=== PATIENT | male | born 1955 | race Caucasian/White ===

== ENCOUNTER 2022-11-23 09:04 | Outpatient (OUT) | payer MEDICARE, SELFPAY ==
[2022-11-23 09:33] LABS: Basophils Absolute Auto 0.1 10^3/uL (0.0-0.1); Basophils Percent Auto 1.2 % (0.2-2.0); Eosinophils Absolute Auto 0.3 10^3/uL (0.0-0.7); Hemoglobin 15.3 g/dL (14.0-18.0); Immature Granulocytes Abs Auto 0.02 10^3/uL (0.00-0.03); Immature Granulocytes Pct Auto 0.3 % (0.0-0.5); Lymphocytes Absolute Auto 2.2 10^3/uL (1.2-3.8); Lymphocytes Percent Auto 32.8 % (20.5-60.0); Mean Corpuscular Hemoglobin 30.6 pg (25.9-34.0); Mean Platelet Volume 10.4 fL (9.5-13.5); Monocytes Absolute Auto 0.5 10^3/uL (0.3-0.8); Monocytes Percent Auto 7.5 % (1.7-12.0); Neutrophils Absolute Auto 3.7 10^3/uL (1.4-6.5); Neutrophils Percent Auto 54.2 % (43.0-75.0); Platelet Count 243 10^3/uL (150-450); Red Cell Distribution Width 12.6 % (11.0-15.0); White Blood Count 6.8 10^3/uL (4.0-11.0)
[2022-11-23 10:06] LABS: Microalbumin Urine Random <1.3 mg/dL (<=30.0)
[2022-11-23 10:07] LABS: Alanine Aminotransferase 30 U/L (16-63); Anion Gap 8.5; BUN Creatinine Ratio 11.4; Calcium 8.8 mg/dL (8.5-10.1); Carbon Dioxide 30.8 mmol/L (21.0-32.0); Chloride 104 mmol/L (98-107); Chol HDL Ratio 2.2; Cholesterol 161 mg/dL (<=200); Estimated GFR (African America >60 (>=60); Estimated GFR (Non-African Ame >60 (>=60); Glucose 148 mg/dL (74-106); HDL Cholesterol 72 mg/dL (40-60); Potassium 4.3 mmol/L (3.5-5.1); Sodium 139 mmol/L (136-145); Triglycerides 54 mg/dL (<=150); VLDL CHOLESTEROL 10.8 mg/dL
[2022-11-23 10:16] LABS: Prostate Specific Antigen Scrn 0.43 ng/mL (<=4.00)
[2022-11-23 10:19] LABS: Estimated Average Glucose 134 mg/dL; Glycohemoglobin A1C 6.3 % (4.5-6.2)
== END 2022-11-23 09:05 | disposition home or self-care (01) ==
LOC: LAB 09:09
PROVIDERS: PCP Internal Medicine; Visit Provider Internal Medicine
DX: I10 Essential (primary) hypertension (principal); E11.65 Type 2 diabetes mellitus with hyperglycemia; Z79.899 Other long term (current) drug therapy; Z12.5 Encounter for screening for malignant neoplasm of prostate; E78.00 Pure hypercholesterolemia, unspecified
CPT/HCPCS: 36415; 80048; 80061; 82043; 83036; 84460; 85025; G0103

== ENCOUNTER 2023-05-30 09:45 | Outpatient (OUT) | payer MEDICARE, SELFPAY ==
[2023-05-30 12:09] LABS: Estimated Average Glucose 137 mg/dL; Glycohemoglobin A1C 6.4 % (4.5-6.2)
== END 2023-05-30 09:46 | disposition home or self-care (01) ==
PROVIDERS: PCP Internal Medicine; Visit Provider Internal Medicine
DX: E11.65 Type 2 diabetes mellitus with hyperglycemia (principal)
CPT/HCPCS: 83036

== ENCOUNTER 2023-12-07 06:52 | Outpatient (OUT) | payer MEDICARE, OTHER, SELFPAY ==
--- OUTSIDE RECORDS SUMMARY | 2023-12-07 06:58 | XMS_ITS | CCD ---
Author Organization [facility] Care Team Providers Care Kiln Setter Name Role Phone Marvin Cooley DO Primary Care Provider NAVJOT SHULTZ Referring Unavailable KRYSTA, MARVIN Bean Primary Care Unavailable KRYSTA, MARVIN Bean Primary Care Unavailable BALL, DR MIR Consulting Unavailable BALL, DR MIR Primary Care Unavailable BALL, DR MIR Admitting Unavailable BALL, DR IMR Attending Unavailable BALL, DR MIR Consulting Unavailable BALL, DR MIR Primary Care Unavailable BALL, DR MIR Admitting Unavailable BALL, DR MIR Attending Unavailable BALL, DR MIR Consulting Unavailable BALL, DR MIR Primary Care Unavailable BALL, DR MIR Admitting Unavailable BALL, DR MIR Attending Unavailable Ball, Marvin Unavailable Allergies Allergy Classification Reported Allergen(s) Allergy Type Date of Onset Reaction(s) Facility (6 sources) Penicillin; Translations: [PENICILLIN] Drug Allergy 06-28-2018 [facility] Medications Current Medications Medication Drug Class(es) Dates Sig (Normalized) Sig (Original) atorvastatin 10 mg oral tablet (4 sources) HMG-CoA Reductase Inhibitor Start: 07-14-2023 take 1 tablet by mouth once daily in the evening Atorvastatin Active 0 .ROUTE .COMPLEX July 14, 2023 12:55pm TAKE 1 TABLET BY MOUTH EVERY DAY IN THE EVENING Start: 07-14-2023 End: 07-14-2023 take 10 mg by mouth once daily in the evening Atorvastatin Discontinued 10 MG PO Every evening July 14, 2023 12:00am July 14, 2023 12:55pm take 1 tablet by jasper th once daily in the evening Atorvastatin Calcium 10 MG TAKE 1 TABLET BY MOUTH EVERY EVENING Active Contour Test - (1 source) Start: 12-08-2022 Contour Test - Use to test home BS qd In Vitro qd for 30 days Nov, Active losartan potassium 50 mg oral tablet (2 sources) Angiotensin 2 Receptor Guy Start: 11-27-2023 take 50 mg by mouth once daily Losartan Active 50 MG PO Daily November 27, 2023 12:00am Start: 05-26-2023 take 1 tablet by jasper th every twenty-four hours Losartan Potassium 25 MG 1 tablet Orally Once a day for 30 days May, Active metFORMIN hydrochloride 500 mg oral tablet (4 sources) Biguanide Start: 07-14-2023 take 1 tablet by mouth once daily at breakfast Metformin Active 0 .ROUTE .COMPLEX July 14, 2023 12:55pm TAKE 1 TABLET BY MOUTH EVERY DAY WITH BREAKFAST Start: 07-14-2023 End: 07-14-2023 take 500 mg by mouth once daily Metformin Discontinued 500 MG PO Daily July 14, 2023 12:00am July 14, 2023 12:55pm take 1 tablet by jasper th every twenty-four hours metFORMIN HCl 500 MG 1 tablet Orally Once a day Active Completed/Discontinued Medications Medication Drug Class(es) Dates Sig (Normalized) Sig (Original) enteric contrast (will be provided with radiology test) (6 sources) Start: 07-26-2021 enteric contrast (will be provided with radiology test) Indications: Malignant neoplasm of sigmoid colon (HCC) For CT CHESTABD/PEL W IVCON Routine order Administer, As Directed One Time Only, via Oral, Rectal, both Oral and Rectal, Enteric Tube, Stoma or Indwelling Catheter, Enteric Contrast as designated per enteric contrast guidelines 1 Each 0 07/26/2021 Active Start: 10-17-[address] (will be provided with radiology test) Indications: Malignant neoplasm of sigmoid colon (HCC) For CT CHESTABD/PEL W IVCON Routine order Administer, As Directed One Time Only, via Oral, Rectal, both Oral and Rectal, Enteric Tube, Stoma or Indwelling Catheter, Enteric Contrast as designated per enteric contrast guidelines 1 Each 0 10/17/2019 Active Comment on above: For CT CHESTABD/PEL W IVCON Routine order Administer, As Directed One Time Only, via Oral, Rectal, both Oral and Rectal, Enteric Tube, Stoma or Indwelling Catheter, Enteric Contrast as designated per enteric contrast guidelines iv contrast (will be provided with radiology test) (6 sources) Start: 07-26-2021 iv contrast (will be provided with radiology test) Indications: Malignant neoplasm of sigmoid colon (HCC) CT Chest ABD/PEL-Inject, intravenously, once for 1 dose.No IV access, insert saline lock prior to the beginning of sedation, infusion, injection of imaging exam. Discontinue saline lock post exam. If Pt. has a central line or IVAD, may access for administration according to line specific nursing protocol. Once exam is complete flush line and de-access according to line specific nursing protocol in the CT contrast administration guidelines link. 1 Each 0 07/26/2021 Active Start: 10-17-2019 iv contrast (w ill be provided with radiology test) Indications: Malignant neoplasm of sigmoid colon (HCC) CT Chest ABD/PEL-Inject, intravenously, once for 1 dose.No IV access, insert saline lock prior to the beginning of sedation, infusion, injection of imaging exam. Discontinue saline lock post exam. If Pt. has a central line or IVAD, may access for administration according to line specific nursing protocol. Once exam is complete flush line and de-access according to line specific nursing protocol in the CT contrast administration guidelines link. 1 Each 0 10/17/2019 Active Comment on above: CT Chest ABD/PEL-Inj ect, intravenously, once for 1 dose.No IV access, insert saline lock prior to the beginning of sedation, infusion, injection of imaging exam. Discontinue saline lock post exam. If Pt. has a central line or IVAD, may access for administration according to line specific nursing protocol. Once exam is complete flush line and de-access according to line specific nursing protocol in the CT contrast administration guidelines link. Problems Active Problems Problem Classification Problem Date Documented Da te Episodic/Chronic Cancer of colon (11 sources) Malignant tumor of sigmoid colon; Translations: [Malignant neoplasm of sigmoid colon] Onset: 06-15-2018 07-12-2018 Chronic Cancer of colon (5 sources) History of malignant neoplasm of colon; Translations: [Personal history of other malignant neoplasm of large intestine] Episodic Cancer of rectum and anus (1 source) Malignant tumor of rectosigmoid junction; Translations: [Malignant neoplasm of rectosigmoid junction] Chronic Diabetes mellitus with complications (6 sources) Type 2 diabetes mellitus; Translations: [Type 2 diabetes mellitus with hyperglycemia] Chronic Diabetes mellitus without complication (6 sources) Type 2 diabetes mellitus without complications; Translations: [Type 2 diabetes mellitus without complication] Onset: 03-16-2022 Chronic Disorders of lipid metabolism (8 sources) Pure hypercholesterolemi a, unspecified; Translations: [Pure hypercholesterolemi a] Onset: 03-19-2022 Chronic Essential hypertension (4 sources) Essential hypertension; Translations: [Essential (primary) hypertension] Chronic Genitourinary symptoms and ill-defined conditions (1 source) Nocturia Episodic Hyperplasia of prostate (8 sources) Benign prostatic hyperplasia; Translations: [Benign prostatic hyperplasia without lower urinary tract symptoms] Chronic Other and unspecified benign neoplasm (2 sources) History of polyp of colon; Translations: [Personal history of colonic polyps] Episodic Other nutritional; endocrine; and metabolic disorders (4 sources) Obese class I; Translations: [Obesity, unspecified] Onset: 07-10-2018 07-12-2018 Chronic Other nutritional; endocrine; and metabolic disorders (3 sources) Body mass index 30+ - obesity; Translations: [Obesity, unspecified] Chronic Other nutritional; endocrine; and metabolic disorders (1 source) Obesity, unspecified Chronic Other nutritional; endocrine; and metabolic disorders (1 source) Simple obesity ; Translations: [Other obesity due to excess calories] Onset: 04-27-2018 Chronic Other nutritional; endocrine; and metabolic disorders (1 source) Other obesity due to excess calories Chronic Other nutritional; endocrine; and metabolic disorders (1 source) Body mass index (BMI) 31.0-31.9, adult Chronic Other nutritional; endocrine; and metabolic disorders (3 sources) Overweight; Translations: [Overweight] Episodic Other screening for suspected conditions (not mental disorders or infectious disease) (2 sources) Encounter for screening for malignant neoplasm of prostate; Translations: [Screening for malignant neoplasms of prostate] Onset: 12-16-2021 11-27-2023 Episodic Unclassified (3 sources) CONTACT W/AND (SUSP) EXPOS COVID-19; Translations: [CONTACT W/AND (SUSP) EXPOS COVID-19] Onset: 03-30-2021 Past or Other Problems Problem Classification Problem Date Documented Da te Episodic/Chronic Abdominal hernia (4 sources) Incisional hernia; Translations: [Incisional hernia without obstruction or gangrene] Onset: 05-02-2019 05-02-2019 Episodic Other circulatory disease (1 source) Elevated blood-pressure reading without diagnosis of hypertension; Translations: [Elevated blood-pressure reading, without diagnosis of hypertension] Onset: 04-27-2018 Episodic Unclassified (1 source) CONTACT W/AND (SUSP) EXPOS COVID-19; Translations: [CONTACT W/AND (SUSP) EXPOS COVID-19] Onset: 03-25-2021 Results Test Name Value Interpretation Reference Range Facility DIRECT LDLon 03-16-2022 Cholesterol in LDL [Mass/Vol] 107 mg/dL Normal [facility] Comment on above: Performed By: #### A , DLDL #### [facility] [address] [address] [address] Ranjith Logan DLDL NORMAL SEE BELOW Normal [facility] Comment on above: Result Comment: <100 mg/dl OPTIMAL 100 - 129 mg/dl NEAR OR ABOVE OPTIMAL 130 - 159 mg/dl BORDERLINE HIGH 160 - 189 mg/dl HIGH >190 mg/dl VERY HIGH Performed By: #### A WILLOW EARLYL #### [facility] [address] [place] [address] Dr. Ranjith Logan GLYCOHEMOGLOBIN A1Con 2021 ADA RECOMMENDATION SEE BELOW Normal [facility] Comment on above: Result Comment: ADA RECOMMENDED LIMIT 4.0 - 6.0 ADA THERAPEUTIC TARGET < 7.0 ACTION SUGGESTED > 7.0 Performed By: #### A 1C #### [facility] [address] [place] [address] Dr. Ranjith Logan Glucose [Mass/Vol] 146 mg/dL Normal [facility] Comment on above: Performed By: #### A 1C #### [facility] [address] [place] [address] Dr. Ranjith Logan HbA1c (Bld) [Mass fraction] 6.7 % Critically high 4.5-6.[address] [facility] Comment on above: Performed By: #### A 1C #### [facility] [address] [place] [address] Dr. Ranjith Logan SGPTon 03-16-2022 ALT [Catalytic activity/Vol] 51 U/L Normal 16-[address] [facility] Comment on above: Performed By: #### A , DLDL #### [facility] [address] [place] [address] Dr. Ranjith Logan CEA SerPl-mCncon 02-16-2022 Carcinoembryonic Ag [Mass/Vol] 3.1 ng/mL High <=2.9 [facility] Comment on above: Order Comment: Speci men Type: BLOOD SPECIMEN Ordering Facility: [facility] [place] Address: [address] [place], [place] [id number] Result Comment: Carc inoembryonic antigen test is used as an aid in monitoring response to treatment or recurrence in patients with established colorectal, breast, lung, prostatic, pancreatic, and ovarian carcinomas. Clinical correlation is required. The Carcinoembryonic antigen test was performed using the [employer] [place] [employer] DXI paramagnetic particle chemiluminescent immunoassay method. Results obtained with different assay methods or kits cannot be used interchangeably. Performed By: #### 2 [id number] #### [facility] CLIA [id number] [place] CBC AUTO DIFFon 12-15-2021 BASO # 0.1 103/ul Normal 0.0-0.[address] [facility] Comment on above: Performed By: #### C BC #### [facility] [address] [place] [address] Dr. Ranjith Logan Basophils/100 WBC (Bld) 1.6 % Normal 0.2-2.[address] [facility] Comment on above: Performed By: #### C BC #### [facility] [address] [place] [address] Dr. Ranjith Logan EO # 0.4 103/ul Normal 0.0-0.[address] [facility] Comment on above: Performed By: #### C BC #### [facility] [address] [place] [address] Dr. Ranjith Logan Eosinophils/100 WBC (Bld) 5.3 % Normal 0.9-7.[address] [facility] Comment on above: Performed By: #### C BC #### [facility] [address] [place] [address] Dr. Ranjith Logan Erythrocyte distribution width (RBC) [Ratio] 13.1 % Normal 11.0-15.[address] [facility] Comment on above: Performed By: #### C BC #### [facility] [address] [place] [address] Dr. Ranjith Logan Hematocrit (Bld) [Volume fraction] 43.0 % Normal 42.0-54.[address] [facility] Comment on above: Performed By: #### C BC #### [facility] [address] [place] [address] Dr. Ranjith Logan Hemoglobin (Bld) [Mass/Vol] 14.5 g/dL Normal 14.0-18.[address] [facility] Comment on above: Performed By: #### C BC #### [facility] [address] [place] [address] Dr. Ranjith Logan IG # 0.02 10e3/ul Normal 0.00-0.[address] [facility] Comment on above: Performed By: #### C BC #### [facility] [address] [place] [address] Dr. Ranjith Logan IG % 0.3 % Normal 0.0-0.[address] [facility] Comment on above: Performed By: #### C BC #### [facility] [address] [place] [address] Dr. Ranjith Logan LYMPH # 2.3 103/ul Normal 1.2-3.[address] [facility] Comment on above: Performed By: #### C BC #### [facility] [address] [place] [address] Dr. Ranjith Logan Lymphocytes/100 WBC (Bld) 33.3 % Normal 20.5-60.[address] [facility] Comment on above: Performed By: #### C BC #### [facility] [address] [place] [address] Dr. Ranjith Logan MANUAL DIFF REQ NO Normal [facility] Comment on above: Performed By: #### C BC #### [facility] [address] [place] [address] Dr. Ranjith Logan MCH (RBC) [Entitic mass] 30.5 pg Normal 25.9-34.[address] [facility] Comment on above: Performed By: #### C BC #### [facility] [address] [place] [address] Dr. Ranjith Logan MCHC (RBC) [Mass/Vol] 33.7 g/dL Normal 29.9-35.[address] [facility] Comment on above: Performed By: #### C BC #### [facility] [address] [address] [address] Ranjith Logan MCV (RBC) [Entitic vol] 90.3 fL Normal 80.0-94.[address] [facility] Comment on above: Performed By: #### C BC #### [facility] [address] [address] [address] Ranjith Logan MONO # 0.6 103/ul Normal 0.3-0.[address] [facility] Comment on above: Performed By: #### C BC #### [facility] [address] [address] [address] Ranjith Logan Monocytes/100 WBC (Bld) 8.6 % Normal 1.7-12.[address] [facility] Comment on above: Performed By: #### C BC #### [facility] [address] [place] [address] Dr. Ranjith Logan NEUT # 3.4 103/ul Normal 1.4-6.[address] [facility] Comment on above: Performed By: #### C BC #### [facility] [address] [place] [address] Dr. Ranjith Logan Neutrophils/100 WBC (Bld) 50.9 % Normal 43.0-75.[address] [facility] Comment on above: Performed By: #### C BC #### [facility] [address] [place] [address] Dr. Ranjith Logan Platelet mean volume (Bld) [Entitic vol] 10.0 fL Normal 9.5-13.[address] [facility] Comment on above: Performed By: #### C BC #### [facility] [address] [address] [address] Ranjith Logan PLT 245 103/ul Normal 150-[address] [facility] Comment on above: Performed By: #### C BC #### [facility] [address] [address] [address] Ranjith Logan RBC 4.76 106/ul Normal 4.70-6.[address] [facility] Comment on above: Performed By: #### C BC #### [facility] [address] [address] [address] Ranjith Logan WBC 6.8 103/ul Normal 4.0-11.[address] [facility] Comment on above: Performed By: #### C BC #### [facility] [address] [address] [address] Ranjith Logan GLYCOHEMOGLOBIN A1Con 2021 ADA RECOMMENDATION SEE BELOW Normal [facility] Comment on above: Result Comment: ADA RECOMMENDED LIMIT 4.0 - 6.0 ADA THERAPEUTIC TARGET < 7.0 ACTION SUGGESTED > 7.0 Performed By: #### A 1C #### [facility] [address] [address] [address] Ranjith Logan Glucose [Mass/Vol] 140 mg/dL Normal [facility] Comment on above: Performed By: #### A 1C #### [facility] [address] [place] [address] Dr. Ranjith Logan HbA1c (Bld) [Mass fraction] 6.5 % Critically high 4.5-6.[address] [facility] Comment on above: Performed By: #### A 1C #### [facility] [address] [place] [address] Dr. Ranjith Logan LIPID PROFILEon 12-15-2021 CHOL-HDL RATIO NORM SEE BELOW Normal [facility] Comment on above: Result Comment: 3.3 - 4.4 LOW RISK 4.4 - 7.1 AVERAGE RISK 7.1 - 11.0 MODERATE RISK >11.0 HIGH RISK Performed By: #### L IPID, CMP #### [facility] [address] [place] [address] Dr. Ranjith Logan Cholesterol [Mass/Vol] 214 mg/dL Critically high <=[address] [facility] Comment on above: Performed By: #### L IPID, CMP #### [facility] [address] [place] [address] Dr. Ranjith Logan Cholesterol in HDL [Mass/Vol] 60 mg/dL Normal 40-[address] [facility] Comment on above: Performed By: #### L IPID, CMP #### [facility] [address] [address] [address] Ranjith Logan Cholesterol in LDL [Mass/Vol] 133.6 mg/dL Normal [facility] Comment on above: Performed By: #### L IPID, CMP #### [facility] [address] [place] [address] Dr. Ranjith Logan Cholesterol.total/Ch olesterol in HDL [Mass ratio] 3.6 {ratio} Normal [facility] Comment on above: Performed By: #### L IPID, CMP #### [facility] [address] [place] [address] Dr. Ranjith Logan HDL NORMAL > or = 60 mg/dl - LO W CARDIOVASCULAR RISK <40 mg/dl - HIGH CARDIOVASCULAR RISK Normal [facility] Comment on above: Performed By: #### L IPID, CMP #### [facility] [address] [place] [address] Dr. Ranjith Logan LDL CALC NORMAL SEE BELOW Normal [facility] Comment on above: Result Comment: <100 mg/dl OPTIMAL 100 - 129 mg/dl NEAR OR ABOVE OPTIMAL 130 - 159 mg/dl BORDERLINE HIGH 160 - 189 mg/dl HIGH >190 mg/dl VERY HIGH Performed By: #### L IPID, CMP #### [facility] [address] [place] [address] Dr. Ranjith Logan Triglyceride [Mass/Vol] 102 mg/dL Normal <=[address] [facility] Comment on above: Performed By: #### L IPID, CMP #### [facility] [address] [place] [address] Dr. Ranjith Logan VLDL CALC 20.4 mg/dL Normal [facility] Comment on above: Performed By: #### L IPID, CMP #### [facility] [address] [address] [address] Ranjith Logan PROF 14(COMP METB)on 022 Albumin [Mass/Vol] 3.6 g/dL Normal 3.4-5.0 [facility] Comment on above: Performed By: #### L IPID, CMP #### [facility] [address] [place] [address] Dr. Ranjith Logan Albumin/Globulin [Mass ratio] 1.0 {ratio} Normal [facility] Comment on above: Performed By: #### L IPID, CMP #### [facility] [address] [place] [address] Dr. Ranjith Logan ALP [Catalytic activity/Vol] 68 U/L Normal 46-[address] [facility] Comment on above: Performed By: #### L IPID, CMP #### [facility] [address] [address] [address] Ranjith Logan ALT [Catalytic activity/Vol] 39 U/L Normal 16-[address] [facility] Comment on above: Performed By: #### L IPID, CMP #### [facility] [address] [place] [address] Dr. Ranjith Logan Anion gap [Moles/Vol] 9.8 mmol/L Normal [facility] Comment on above: Performed By: #### L IPID, CMP #### [facility] [address] [place] [address] Dr. Ranjith Logan AST [Catalytic activity/Vol] 20 U/L Normal 15-[address] [facility] Comment on above: Performed By: #### L IPID, CMP #### [facility] [address] [place] [address] Dr. Ranjith Logan Bilirubin [Mass/Vol] 0.7 mg/dL Normal 0.2-1.[address] [facility] Comment on above: Performed By: #### L IPID, CMP #### [facility] [address] [place] [address] Dr. Ranjith Logan Calcium [Mass/Vol] 8.8 mg/dL Normal 8.5-10.1 [facility] Comment on above: Performed By: #### L IPID, CMP #### [facility] [address] [place] [address] Dr. Ranjith Logan Chloride [Moles/Vol] 103 mmol/L Normal 98-[address] [facility] Comment on above: Performed By: #### L IPID, CMP #### [facility] [address] [place] [address] Dr. Ranjith Logan CO2 [Moles/Vol] 31.5 mmol/L Normal 21.0-32.0 [facility] Comment on above: Performed By: #### L IPID, CMP #### [facility] [address] [address] [address] Ranjith Logan Creatinine [Mass/Vol] 0.94 mg/dL Normal 0.70-1.[address] [facility] Comment on above: Performed By: #### L IPID, CMP #### [facility] [address] [address] [address] Ranjith Logan EGFR-AF LUXEMBOURGER >60 Normal >=60 [facility] Comment on above: Performed By: #### L IPID, CMP #### [facility] [address] [address] [address] Ranjith Logan EGFR-NON AF LUXEMBOURGER >60 Normal >=[address] [facility] Comment on above: Performed By: #### L IPID, CMP #### [facility] [address] [address] [address] Ranjith Logan Globulin (S) [Mass/Vol] 3.7 g/dL Normal [facility] Comment on above: Performed By: #### L IPID, CMP #### [facility] [address] [address] [address] Ranjith Logan Glucose [Mass/Vol] 147 mg/dL Critically high 74-[address] [facility] Comment on above: Performed By: #### L IPID, CMP #### [facility] [address] [address] [address] Ranjith Logan Potassium [Moles/Vol] 4.3 mmol/L Normal 3.5-5.[address] [facility] Comment on above: Performed By: #### L IPID, CMP #### [facility] [address] [address] [address] Ranjith Logan Protein [Mass/Vol] 7.3 g/dL Normal 6.4-8.2 [facility] Comment on above: Performed By: #### L IPID, CMP #### [facility] [address] [address] [address] Ranjith Logan Sodium [Moles/Vol] 140 mmol/L Normal 136-145 [facility] Comment on above: Performed By: #### L IPID, CMP #### [facility] [address] [address] [address] Ranjith Logan Urea nitrogen [Mass/Vol] 8.0 mg/dL Normal 7.0-18.[address] [facility] Comment on above: Performed By: #### L IPID, CMP #### [facility] [address] [address] [address] Ranjith Logan Urea nitrogen/Creatinine [Mass ratio] 8.5 mg/mg Normal [facility] Comment on above: Performed By: #### L IPID, CMP #### [facility] [address] [address] [address] Ranjith Logan CEA SerPl-mCncon 07-28-2021 Carcinoembryonic Ag [Mass/Vol] 3.5 ng/mL High <=2.9 [facility] Comment on above: Order Comment: Speci men Type: BLOOD SPECIMEN Ordering Facility: [facility] [place] Address: [address] [place] [address] Result Comment: Carc inoembryonic antigen test is used as an aid in monitoring response to treatment or recurrence in patients with established colorectal, breast, lung, prostatic, pancreatic, and ovarian carcinomas. Clinical correlation is required. The Narcisa [place] DXI 600/800 is used. Results obtained with different assay, methods or kits cannot be used interchangeably Performed By: #### 2 [id number] #### [facility] CLIA [id number] [address] [place], [place] [address]K [address] [facility] CNPChristen 07-23-2021 CNPN Telephone ([facility]) -------- HECTOR MURRY ([id number]) 1955 M Date Time Provider Department 07/23/[address] [facility] During your visit today, we recorded the following information about you: Janae Lezama RN 07/23/2021 9:45 AM Signed Call placed to patient re: cancer surveillance. No answer, left message and office contact number should wish to discuss Kaylene Romero ADM 07/23/2021 3:37 PM Signed Patient returned nurse call. Request call back to [phone] Janae Lezama RN 07/23/2021 3:47 PM Signed Call returned to patient. Discussed surveillance x 5 yrs. Pt appreciative of the call. Will obtain lab work. Will forward CT scans to Dr Shultz for approval. 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 Discontinue saline lock post exam. If Pt. has a central line or IVAD, may access for administration according to line specific nursing protocol. Once exam is complete flush line and de-access according to line specific nursing protocol in the CT contrast administration guidelines link.Disp: 1 EachRfl: 0 enteric contrast (will be provided with radiology test)For CT CHESTABD/PEL W IVCON Routine order Administer, As Directed One Time Only, via Oral, Rectal, both Oral and Rectal, Enteric Tube, Stoma or Indwelling Catheter, Enteric Contrast as designated per enteric contrast guidelinesDisp: 1 EachRfl: 0 CREATININE BLD [SQCRET] Order #: [id number] FUTURE Prescriptions as of 07/26/2021 - iv contrast (will be provided with radiology test) CT Chest ABD/PEL-Inject, intravenously, once for 1 dose.No IV access, insert saline lock prior to the beginning of sedation, infusion, injection of imaging exam. Discontinue saline lock post exam. If Pt. has a central line or IVAD, may access for administration according to line specific nursing protocol. Once exam is complete flush line and de-access according to line specific nursing protocol in the CT contrast administration guidelines link. - enteric contrast (will be provided with radiology test) For CT CHESTABD/PEL W IVCON Routine order Administer, As Directed One Time Only, via Oral, Rectal, both Oral and Rectal, Enteric Tube, Stoma or Indwelling Catheter, Enteric Contrast as designated per enteric contrast guidelines - iv contrast (will be provided with radiology test) CT Chest ABD/PEL-Inject, intravenously, once for 1 dose.No IV access, insert saline lock prior to the beginning of sedation, infusion, injection of imaging exam. Discontinue saline lock post exam. If Pt. has a central line or IVAD, may access for administration according to line specific nursing protocol. Once exam is complete flush line and de-access according to line specific nursing protocol in the CT contrast administration guidelines link. - enteric contrast (will be provided with radiology test) For CT CHESTABD/PEL W IVCON Routine order Administer, As Directed One Time Only, via Oral, Rectal, both Oral and Rectal, Enteric Tube, Stoma or Indwelling Catheter, Enteric Contrast as designated per enteric contrast guidelines Problem List As Of Date 07/23/2021 Noted Resolved Malignant neoplasm of sigmoid colon (HCC) [C18.*07/04/2018 Obesity, Class I, BMI 30-34.9 [E66.9] 07/10/2018 Incisional hernia, without obstruction or gangr*05/02/2019 Prescriptions ordered this encounter Disp Refills Start End IV CONTRAST (RADIOLOGY PROCEDURE) 1 Ea* 0 07/26/2021 Class: In Office Sig: CT Chest ABD/PEL-Inject, intravenously, once for 1 dose.No IV access, insert saline lock prior to the beginning of sedation, infusion, injection of imaging exam. Discontinue saline lock post exam. If Pt. has a central line or IVAD, may access for administration according to line specific nursing protocol. Once exam is complete flush line and de-access according to line specific nursing protocol in the CT contrast administration guidelines link. ENTERIC CONTRAST (RADIOLOGY PROCEDUR* 1 Ea* 0 (more content not included)... Normal [facility]on SARS-CoV-2 (COVID-19) RNA PANFILO+probe Ql (Unsp spec) Not detected Normal NOT DETECTED [facility] Comment on above: Result Comment: This test is not yet approved or cleared by the [place] FDA. When there are no FDA-approved or cleared tests available, and other criteria are met, FDA can make tests available under an emergency access mechanism called an Emergency Use Authorization (EUA). The EUA for this test is supported by the [place] of Health and Human Service's (HHS's) declaration that circumstances exist to justify the emergency use of in vitro diagnostics for the detection and/or diagnosis of the virus that causes COVID-19. This EUA will remain in effect (meaning this test can be used) for the duration of the COVID-19 declaration justifying emergency of IVDs, unless it is terminated or revoked by FDA (after which the test may no longer be used). When diagnostic testing is negative, the possibility of a false negative should be considered in the context of a patient's recent exposures and the presence of clinical signs and symptoms consistent with SARS-CoV-2. Performed By: #### C [facility] #### [facility] [address] [place] [address] Dr. Ranjith [place] POSTPROC EVALon 020 ANES POSTPROC EVAL HNO ID: [id number] Author: Keon Fairchild Service: ? Author Type: Anesthesiologist Type: Anesthesia Postprocedure Evaluation Filed: 06/25/2019 12:38 PM Note Text: POST ANESTHESIA EVALUATION NOTE : 1955 Procedure Summary Date: 06/25/19 Room / Location: OR11 / [facility] OR Anesthesia Start: 947 Anesthesia Stop: 1124 Procedure: LAPAROSCOPIC HERNIORRHAPHY INCISIONAL ABDOMEN REDUCIBLE (N/A Abdomen) Diagnosis: Incisional hernia (Incisional hernia [K43.2]) Surgeon: Kassidy Ibarra Responsible Provider: Keon Fairchild Anesthesia Type: general ASA Status: 2 Anesthesia Type: general Last vitals Vitals Value Taken Time BP 122/71 06/25/2019 12:30 PM Temp 36.7 ?C (98.1 ?F) 06/25/2019 11:22 AM Pulse 61 06/25/2019 12:11 PM HR SpO2 67 06/25/2019 12:12 PM Resp 11 06/25/2019 12:11 PM SpO2 98 % 06/25/2019 12:12 PM Vitals shown include unvalidated device data. Post Anesthesia Patient Status Patient Evaluation: PACU. PACU/ICU Patient Condition: stable. Anticipated Disposition: phase 2 then home. Neurological Status: aware and responsive. Pulmonary Status: breathing comfortably on room air . Airway Control: returned to baseline unsupported. Cardiovascular Status: stable. Pain Management: clinically adequate. Postoperative Hydration: acceptable. Intraoperative Events: no significant anesthesia events Anesthetic Observations: no significant anesthetic observations Recommendation: continue current plan of care and further care per PACU/ICU/floor team. SIGNATURE: Keon Fairchild MD PATIENT NAME: Hector Murry DATE: June 25, 2019 TIME: 12:38 PM CSN: [id number] [facility] ANES PRE-OPon 06-25-2019 ANES PRE-OP HNO ID: [id number] Author: Keon Fairchild Service: ? Author Type: Anesthesiologist Type: Anesthesia Preprocedure Evaluation Filed: 06/25/2019 9:26 AM Note Text: ANESTHESIOLOGY DAY OF SURGERY NOTE : 1955 Procedure(s) (LRB): LAPAROSCOPIC HERNIORRHAPHY INCISIONAL ABDOMEN REDUCIBLE (N/A) Surgeon(s): Kassidy Ibarra Estimated body mass index is 30.61 kg/m? as calculated from the following: Height as of 06/14/19: 185.4 cm (6' 1 ). Weight as of 06/14/19: 105.2 kg (232 lb). Most recent hematocrit and potassium results: Hematocrit 36.8 07/12/2018 Potassium 4.0 07/12/2018 Relevant Problems No relevant active problems I - PHYSICAL EVALUATION AIRWAY Patient intubated: No. Tracheostomy tube not present Mallampati: II. TM distance: >3 FB. Neck ROM: full ROM without neurological symptoms. Mouth opening: adequate. Short neck: no. Thick neck: no Additional comments: Sommers present. DENTAL Dental findings: teeth intact. Additional exam findings: yes. CARDIOVASCULAR Normal cardiovascular observations. Rhythm: regular Rate: normal PULMONARY Normal pulmonary observations. Breath sounds clear to auscultation. II - ANESTHESIA PLAN ASA Score: 2 Anesthetic Plan: general Airway type: ETT NPO Status: adequate Monitoring plan: Standard ASA. Postoperative analgesic plan: multimodal analgesia. Anesthetic Risks, Benefits, Alternatives, Personnel Discussed. Consent obtained from: patient. Patient / Surrogate agrees to blood products: blood products not planned Significant changes in the patient condition since the History and Physical, not otherwise documented in primary service progress note: no. Potential Anesthesia issues that may suggest increased risk of complications or contractions to planned procedure: none. Vitals Value Taken Time BP 190/96 06/25/2019 9:10 AM Pulse 67 06/25/2019 9:10 AM Resp 16 06/25/2019 9:10 AM Temp 36 ?C (96.8 ?F) 06/25/2019 9:10 AM SpO2 97 % 06/25/2019 9:10 AM Facility-Administered Medications as of 06/25/2019 Medication Dose Route Frequency - lidocaine 10 mg/mL (1 %) 1-2 mg injection (XYLOCAINE) 0.1-0.2 mL INTRADERMAL PRN - lactated ringers infusion 5-30 mL/hr INTRAVENOUS CONTINUOUS - heparin 5,000 Units injection 5,000 Units SUBCUTANEOUS Pre-Op Once - clindamycin iv piggyback 900 mg in D5W 50 mL (CLEOCIN) 900 mg INTRAVENOUS Pre-Op Once - [COMPLETED] acetaminophen 1,000 mg tab(s) (TYLENOL) 1,000 mg ORAL Pre-Op Once - [COMPLETED] promethazine 12.5 mg tab(s) (PHENERGAN) 12.5 mg ORAL Pre-Op Once - lactated ringers infusion 30 mL/hr INTRAVENOUS CONTINUOUS No current outpatient medications on file as of 06/25/2019. I have interviewed and examined the patient. I have reviewed the medical record and/or the pre-anesthesia evaluation, pertinent labs, and test results. This contains updated information obtained within 48 hours of Surgery/Procedure. SIGNATURE: Keon Fairchild MD PATIENT NAME: Hector Murry DATE: June 25, 2019 TIME: 9:25 AM CSN: [id number] [facility] HISTORY PHYSICALon 0 HISTORY PHYSICAL HNO ID: [id number] Author: Sanam Ace Service: General Surgery Author Type: Resident Type: HANDP Filed: 06/25/2019 9:40 AM Note Text: UPDATED HISTORY AND PHYSICAL EXAMINATION SERVICE DATE: 06/25/2019 SERVICE TIME: 9:39 AM PHYSICAL EXAM MUST BE COMPLETED ON ADMISSION The History and Physical (completed in the past 30 days) has been reviewed and the patient has been examined. The contents accurately reflect the patient's condition with the following additions or revisions since the HANDP was completed. Examination indicates no changes. This HANDP can be found in the Electronic Medical Record dated 06/14/2019. SIGNATURE: Sanam Ace MD PATIENT NAME: Hector Murry DATE: June 25, 2019 TIME: 9:39 AM PAGER: [phone] [facility] OPERATIVE NOon 06-25-2019 OPERATIVE NO HNO ID: [id number] Author: Kassidy Ibarra Service: General Surgery Author Type: Physician Type: Operative Report Filed: 06/26/2019 8:46 AM Note Text: [facility] - Operative Report HECTOR MURRY : 1955 AGE: 64. SEX: M PATIENT TYPE: A [facility] LOCATION: [facility] ATTENDING PHYSICIAN: Kassidy Ibarra M.D. CSN NUMBER: [id number] DATE OF SURGERY/PROCEDURE: 06/25/2019 INCISION/PROCEDURE START TIME: 1015 hours. INCISION CLOSE/PROCEDURE END TIME: 1113 hours. PREOPERATIVE DIAGNOSIS: Incisional hernia. POSTOPERATIVE DIAGNOSIS: Incisional hernia plus omental implant. SURGEON: Kassidy Ibarra M.D. LOAN OFFICER ASSISTANT: Dr. Sanam Ace SURGERY/PROCEDURE: Laparoscopic repair of incisional hernia with mesh and omental implant biopsy. ANESTHESIA: General. ESTIMATED BLOOD LOSS: Minimal. COMPLICATIONS: None immediate. DISPOSITION: To Recovery in stable condition. SIGNIFICANT FINDING: Omental implant was sent to Pathology as frozen, came as fat necrosis. Incisional hernia covered with mesh implant. Parietene DS mesh that measured 20 cm in length x 15 cm in width. DESCRIPTION OF PROCEDURE: Patient was taken to operating room, placed on the anesthesia table in supine position. After induction of anesthesia, the area of the abdomen was prepped and draped in normal sterile fashion. After appropriate time- out, a small incision was made in the left upper quadrant at the Moran point. The abdomen was entered using routine optical entry method, insufflated to 15 mmHg. Initial visualization revealed an incisional hernia in the midline around the umbilicus, slightly above the umbilicus, slightly below the umbilicus. The hernia measured 8 cm in length by about 4 cm in width. The hernia was superficial and was not deep. There were no adhesions to the hernia sac. Exploration of the abdominal cavity within the limitation of surveillance laparoscopy revealed an omental implant in the left upper quadrant. A 5 mm port was then placed in the left lower quadrant. The optical entry site was upgraded to a 12 mm port and another 5 mm port was inserted in the right upper quadrant. All ports were inserted under direct visualization. The omental implant was then excised using the cautery and sent off to frozen section. The frozen section came back as benign fat necrosis with no evidence of cancer. With that, we proceeded to repair the incisional hernia. A 20 cm in length x 15 cm in width Parietene DS mesh was inserted in the abdominal cavity, secured to the abdominal wall using transfascial sutures with a combination of 2-0 PDS sutures and 0 Tycron sutures inserting into the abdominal cavity and fixating it to the abdominal wall using those transfascial sutures with the anti- adhesion barrier towards the abdominal contents. The mesh was secured also to the abdominal wall using the AbsorbaTack around this parameter securing the mesh with adequate repair with at least 5 cm overlap with normal fascia. The mesh sat nicely and taught on the abdominal wall covering the hernia defect. There was no evidence of any injury to the surrounding structures. There was no evidence of any bleeding. The omentum was made to drape underneath the mesh and the abdomen was desufflated under direct visualization. The 12 mm port site was closed using 1 interrupted 0 Vicryl suture. All port sites were infiltrated with subcu Marcaine, approximated with subcuticular 4-0 Monocryl, and the application of Exofin to all port sites and all transfascial suture sites. The patient was then placed in abdominal binder, extubated, transferred to Recovery in stable condition. All counts of sponges, needles, and instruments were correct at the end of the case. I am, Dr. Ibarra, the attending physician. I was present through the entire operation. Kassidy Ibarra M.D. DA:[id number] /[id number] [facility] PT EDon 06-25-2019 PT ED HNO ID: [id number] Author: Carolina HerringRn) MARGARET Norris Service: Nursing Author Type: Registered Nurse Type: Patient Education Filed: 06/25/2019 12:49 PM Note Text: PATIENT EDUCATION TOPIC: PROCEDURE / SURGERY: Post-op Teaching: Symptom Management READINESS TO LEARN COGNITIVE ABILITY: Alert and oriented MOTIVATION TO LEARN: Interested FAMILY SUPPORT: High - Very involved in pt care INSTRUCTION PROVIDED TO: Patient and family member PATIENT LEARNS BEST BY: Individual Instruction Written Instruction - Hand-outs Verbal Instruction FACTORS AFFECTING LEARNING: None PHYSICAL LIMITATIONS AFFECTING LEARNING: None LEARNING RESPONSE PATIENT/FAMILY RESPONSE: Information received as demonstrated by interest and questions METHOD OF INSTRUCTION: Teachback, Individual instruction Written instruction - handouts Verbal instruction including teachback FOLLOW-UP PLAN: Patient instructed to call with any further issues, Will receive a follow up phone call, and contact information given. INSTRUCTIONAL AIDS USED: NA SUPPLEMENTAL MATERIAL PROVIDED TO PATIENT: Post op discharge instructions. [facility] PT ED HNO ID: [id number] Author: Chacha HerringRn) MARGARET Cortez Service: Nursing Author Type: Registered Nurse Type: Patient Education Filed: 06/25/2019 9:07 AM Note Text: PATIENT EDUCATION TOPIC: PROCEDURE / SURGERY: Pre-op Teaching: Logistics PATIENT NAME: Hector Murry PATIENT LOCATION: [facility] OR POOL/[facility] OR POOL READINESS TO LEARN COGNITIVE ABILITY: Alert and oriented MOTIVATION TO LEARN: Eager FAMILY SUPPORT: None - Unavailable/disintereste d INSTRUCTION PROVIDED TO: Patient PATIENT LEARNS BEST BY: Individual Instruction FACTORS AFFECTING LEARNING: None PHYSICAL LIMITATIONS AFFECTING LEARN ING: None LEARNING RESPONSE DIAGNOSIS: ADULT: Well Adult PATIENT/FAMILY RESPONSE: Verbalizes understanding of: PRE-OPERATIVE INSTRUCTIONS-Correct action to take to follow pre-operative instructions METHOD OF INSTRUCTION: Individual instruction FOLLOW-UP PLAN: Complete - No need for follow-up INSTRUCTIONAL AIDS USED: NA SUPPLEMENTAL MATERIAL PROVIDED TO PATIENT: None REFERRAL (RECOMMENDATION): None Electronically Signed By: Chacha Cortez RN Normal [facility] SURGICAL PATHOLOGYon 020 SURGICAL PATHOLOGY Specimen originated from [facility] Specimen #: [id number] Submitting Physician: Kassidy Ibarra M.D. __ FINAL DIAGNOSIS Omental implant, excision - Fat necrosis, chronic inflammation, and focal dystrophic calcifications. - No malignancy identified. JOSE ELIASB/OH/vasu 06/27/2019 Mason Pereira M.D. (Electronic Signature) SPECIMEN SUBMITTED A: OMENTAL IMPLANT CLINICAL DATA INCISIONAL HERNIA; HISTORY OF COLON CANCER; LAPAROSCOPIC VENTRAL HERNIA REPAIR INTRAOPERATIVE CONSULT DIAGNOSIS FSA1: Negative for carcinoma. (Dr. Greer) Intraoperative diagnosis performed at [facility], [address] [place] [address] GROSS DESCRIPTION A. Received fresh for frozen section designated omental implant is a woody yellow nodule that measures 1.5 x 1 x 1 cm. Sectioning the nodule reveals necrotic cut surfaces. The specimen is entirely as follows: A1 frozen section A2-A3 remainder of specimen. MARIXA/patricia 06/25/2019 Gross examination performed at [facility], [address] [place], [place] [address] [address] Date of Report: 06/27/2019 Date of Procedure: 06/25/2019 Date of Receipt: 06/25/2019 Submitted by: Kassidy Ibarra M.D. Location: [facility] Diagnostic interpretation performed at [facility], [address] [place] [address]. CLIA Number: [id number] [facility] NURSING PROGon 06-19-2019 NURSING PROG HNO ID: [id number] Author: Sola (Rn) MARGARET Mix Service: General Surgery Author Type: Registered Nurse Type: Nursing Progress Note Filed: 06/19/2019 9:08 AM Note Text: PACC Nurse Progress Note History AND Physical: PACC Visit Date: 06-14-19 Original HANDP Date: N/A ED visit Date: N/A Outside HANDP Scanned Date: N/A Labs Within Last 6 Months: N/A Imaging Within Last 12 Months: CT Scan 05-20-19 Results in [facility] Cardiac Testing: EKG in last 12 Months: Yes: Date: 07-05-18, Comment: Results scanned in [facility] Last Menstrual Period: LMP Date: N/A Postmenopausal >1yr: N/A, S/P Hysterectomy: N/A BMI Percentile (PEDS): N/A Risk Assessment: N/A Anesthesia Review: N/A Narrative: N/A Pre-op Considerations: N/A Chart Check: COMPLETED Sola Mix RN June 19, 2019 9:06 AM [facility] HOSPon 05-22-2019 HOSP Patient:Anastasiya Murry MRN: Height:6' 1 (1.854 m) Weight:232 lb (105.235 kg) Outpatient Medications as of 06/25/19: Patient has no current outpatient medications. Admission/Clinic Administered Medications as of 06/25/19: lidocaine 10 mg/mL (1 %) 1-2 mg injection (XYLOCAINE) lactated ringers infusion heparin 5,000 Units injection clindamycin iv piggyback 900 mg in D5W 50 mL (CLEOCIN) lactated ringers infusion Problem List: Malignant neoplasm of sigmoid colon (HCC) [C18.7] Obesity, Class I, BMI 30-34.9 [E66.9] Incisional hernia, without obstruction or gangrene [K43.2] Allergies: Penicillin Date Verified: 06/25/19 Lab Values No results within the last 30 days for the following basenames: K,HCT No progress notes entered within the past 30 days Normal [facility] Basic Metabolic Panlon 07-12 Anion gap [Moles/Vol] 13 mmol/L Normal 9-18 [facility] Comment on above: Performed By: #### C BCDIF, BMP ####[place] [phone] Calcium [Mass/Vol] 8.7 mg/dL Normal 8.5-10.5 [facility] Comment on above: Performed By: #### C BCDIF, BMP ####[place] [phone] Chloride [Moles/Vol] 105 mmol/L Normal 98-110 [facility] Comment on above: Result Comment: Revi ewed Performed By: #### C BCDIF, BMP ####[place] [phone] CO2 [Moles/Vol] 24 mmol/L Normal 23-32 [facility] Comment on above: Performed By: #### C BCDIF, BMP ####[place] [phone] Creatinine [Mass/Vol] 0.69 mg/dL Low 0.70-1.40 [facility] Comment on above: Performed By: #### C BCDIF, BMP ####[place] [phone] eGFR- Amer. >60 Normal >60 [facility] Comment on above: Performed By: #### C BCDIF, BMP ####[place] [phone] GFR/1.73 sq M predicted among non-blacks MDRD (S/P/Bld) [Vol rate/Area] mL/min/{1.73_m2} Normal >60 [facility] Comment on above: Performed By: #### C BCDIF, BMP ####[place] [phone] Glucose [Mass/Vol] 146 mg/dL High 65-100 [facility] Comment on above: Performed By: #### C BCDIF, BMP ####[place] [phone] Potassium [Moles/Vol] 4.0 mmol/L Normal 3.5-5.0 [facility] Comment on above: Performed By: #### C BCDIF, BMP ####[place] [phone] Sodium [Moles/Vol] 142 mmol/L Normal 135-146 [facility] Comment on above: Result Comment: Revi ewed Performed By: #### C BCBELENF, BMP ####[place] [phone] Urea nitrogen [Mass/Vol] 6 mg/dL Low 10-25 [facility] Comment on above: Performed By: #### C BCDIF, BMP ####[place] [phone] CBC and Differentialon 07-12 Abs Baso 0.03 k/uL Normal <0.11 [facility] Comment on above: Performed By: #### C BCDIF, BMP ####[place] [phone] Abs Clark 0.87 k/uL High <0.87 [facility] Comment on above: Performed By: #### C BCDIF, BMP ####[place] [phone] Abs Neut 7.20 k/uL Normal 1.45-7.50 [facility] Comment on above: Performed By: #### C BCDIF, BMP ####[place] [phone] Basophils/100 WBC (Bld) 0.3 % Normal [facility] Comment on above: Performed By: #### C BCDIF, BMP ####[place] [phone] DTYPE Auto Diff Normal [facility] Comment on above: Performed By: #### C BCDIF, BMP ####[place] [address] Eosinophils (Bld) [#/Vol] 0.14 10*3/uL Normal <0.46 [facility] Comment on above: Performed By: #### C BCDIF, BMP ####[place] [phone] Eosinophils/100 WBC (Bld) 1.4 % Normal [facility] Comment on above: Performed By: #### C BCDIF, BMP ####[place] [address] Erythrocyte distribution width (RBC) [Ratio] 14.8 % Normal 11.5-15.0 [facility] Comment on above: Performed By: #### C BCDIF, BMP ####[place] [address] Hematocrit (Bld) [Volume fraction] 36.8 % Low 39.0-51.0 [facility] Comment on above: Performed By: #### C BCDIF, BMP ####[place] [address] Hemoglobin (Bld) [Mass/Vol] 11.8 g/dL Low 13.0-17.0 [facility] Comment on above: Performed By: #### C BCDIF, BMP ####[place] [phone] Lymphocytes (Bld) [#/Vol] 1.48 10*3/uL Normal 1.00-4.00 [facility] Comment on above: Performed By: #### C BCDIF, BMP ####[place] [phone] Lymphocytes/100 WBC (Bld) 15.2 % Normal [facility] Comment on above: Performed By: #### C BCDIF, BMP ####[place] [phone] MCH (RBC) [Entitic mass] 27.4 pG Normal 26.0-34.0 [facility] Comment on above: Performed By: #### C BCDIF, BMP ####[place] [phone] MCHC (RBC) [Mass/Vol] 32.1 g/dL Normal 30.5-36.0 [facility] Comment on above: Performed By: #### C BCDIF, BMP ####[place] [phone] MCV (RBC) [Entitic vol] 85.4 fL Normal 80.0-100.0 [facility] Comment on above: Performed By: #### C BCDIF, BMP ####[place] [phone] Monocytes/100 WBC (Bld) 9.0 % Normal [facility] Comment on above: Performed By: #### C BCDIF, BMP ####[place] [phone] Neutrophils/100 WBC (Bld) 74.1 % Normal [facility] Comment on above: Performed By: #### C BCDIF, BMP ####[place] [phone] Platelet mean volume (Bld) [Entitic vol] 10.7 fL Normal 9.0-12.7 [facility] Comment on above: Performed By: #### C BCDIF, BMP ####[place] [phone] Platelets (Bld) [#/Vol] 280 10*3/uL Normal 150-400 [facility] Comment on above: Performed By: #### C BCDIF, BMP ####[place] [phone] RBC (Bld) [#/Vol] 4.31 10*6/uL Normal 4.20-6.00 [facility] Comment on above: Performed By: #### C BCDIF, BMP ####[facility] [place], [place] [phone] WBC (Bld) [#/Vol] 9.72 10*3/uL Normal 3.70-11.00 [facility] Comment on above: Performed By: #### C BCDIF, BMP ####[facility] [place], [place] [phone] NURSING PROGon 07-12-2018 NURSING PROG HNO ID: [id number] Author: Radha (Rn) MARGARET Frost Service: ? Author Type: Registered Nurse Type: Nursing Progress Note Filed: 07/12/2018 5:38 PM Note Text: Nursing Progress Note Patient Name: Hector Murry Patient Location: [place] [address] [address] Daily Note: Pt AANDOx3. Lungs clear. Bowel sounds active, + flatus. Up independently, ambulates halls. Tolerating GI soft diet. Pain controlled on current regimen. Voiding WNL. Will continue POC. 1730: Pt given discharge instructions. Questions answered appropriately. Roxicodone delivered via bedside delivery. Pt aware of other scripts sent to his pharmacy. Follow up appointment scheduled, patient aware. 1737: Pt discharged via wheelchair in stable condition with all belongings. This note was completed by: Radha Frost, MARGARET [facility] PLAN OF CAREon 07-12-2018 PLAN OF CARE HNO ID: [id number] Author: Shelbi Min (School Photographs Detailer) Service: Pharmacy Author Type: Chief Station Engineer Type: Plan of Care Filed: 07/16/2018 3:45 PM Note Text: [employer] BEDSIDE DELIVERY SURVEY 1. Patient to use [facility] Bedside Delivery - YES Insurance Information as follows: 2. Insurance card on file - YES 3. Credit card for payment - N/A [facility] PLAN OF CARE HNO ID: [id number] Author: Shelbi Min ([employer]) Service: Pharmacy Author Type: Chief Station Engineer Type: Plan of Care Filed: 07/16/2018 3:45 PM Note Text: Pharmacy Discharge Medication Service: This patient has elected to receive their discharge prescriptions through the [facility] Bedside Prescription Delivery program. The prescriptions are currently being processed. A follow-up note will be entered once the prescriptions have been filled and delivered to the patient. Please contact me with any questions or updates to the patient's discharge medications. Shelbi Min ([employer]) DCT Contact Info: [id number] [facility] PLAN OF CARE HNO ID: [id number] Author: Sehlbi HerringReality Digital) Service: Pharmacy Author Type: Chief Station Engineer Type: Plan of Care Filed: 07/16/2018 3:46 PM Note Text: PHARMACY BEDSIDE DELIVERY SERVICE Patient Name: Hector Murry The marked outpatient medications were filled and delivered Medication List START taking these medications acetaminophen 500 mg tablet Commonly known as: TYLENOL Take 2 tablets by mouth every 8 hours. ibuprofen 600 mg tablet Commonly known as: MOTRIN Take 1 tablet by mouth three times daily. lactobacillus rhamnosus 10 billion cell capsule Commonly known as: CULTURELLE Take 1 capsule by mouth twice daily. oxyCODONE IR 5 mg immediate release tablet Commonly known as: ROXICODONE Take 1 tablet by mouth every 6 hours as needed for up to 7 days. Earliest Fill Date: 07/12/18 STOP taking these medications metroNIDAZOLE 500 mg tablet Commonly known as: FLAGYL neomycin 500 mg tablet Shelbi Min ([employer]) PAGER: [phone] July 16, 2018 3:46 PM [facility] PROGRESSon 07-12-2018 PROGRESS HNO ID: [id number] Author: Mio Mortensen Service: Colorectal Author Type: Resident Type: Progress Notes Filed: 07/12/2018 7:49 AM Note Text: SURGERY PROGRESS NOTE Hector Murry [id number] Hospital Day: 3 2 Days Post-Op: laparoscopic sigmoidectomy with IN HOME TUTOR ASSESSMENT AND PLAN: 63 year old male w/sigmoid cancer now s/p laparoscopic sigmoidectomy on 07/10. Recovering appropriately. PAIN: continue tylenol/motrin/gabapenti n and roxicodone PRN FEN/GI: advance to GI soft diet, discotninue entereg, discontinue IVF ID/ABX: no indication for abx HEME: lovenox 40 QD, SCDs DISPO: anticipate discharge home in next 24hrs INTERVAL EVENTS: No acute events, no new complaints, tolerating diet with BMs and flatus. Complains of pain worst at RLQ port site. EXAM: GEN: alert and in no acute distress PULM: no e/o increased WOB ABD: soft, non-distended, incisions intact EXT: warm and well perfused DATA: Patient Vitals for the past 8 hrs: BP Temp Temp src Pulse Resp SpO2 Weight 07/12/18 0627 ? 104.1 kg (229 lb 8 oz) 07/12/18 0316 166/72 36.8 ?C (98.2 ?F) Oral 64 18 94 % ? Intake/Output Summary (Last 24 hours) at 07/12/2018 0744 Last data filed at 07/12/2018 0626 Gross per 24 hour Intake 3274 ml Output 1825 ml Net 1449 ml Recent Labs 07/12/18 0541 07/11/18 0624 WBC 9.72 11.57* HB 11.8* 10.5* HCT 36.8* 33.1* PLT 280 273 NA 142 135 K 4.0 4.1 CHLOR 105 99 CO2 24 23 CREAT 0.69* 0.81 BUN 6* 9* GLUC 146* 277* CA 8.7 8.6 Patient Active Hospital Problem List: Malignant neoplasm of sigmoid colon (HCC) (07/04/2018) Obesity, Class I, BMI 30-34.9 (07/10/2018) Macho Mortensen PGY3 General Surgery July 12, 2018 7:40 AM Normal [facility] Basic Metabolic Panlon 07-11 Anion gap [Moles/Vol] 13 mmol/L Normal 9-18 [facility] Comment on above: Performed By: #### T SCR30 #### [facility] [address] [place] [address] Calcium [Mass/Vol] 8.6 mg/dL Normal 8.5-10.5 [facility] Comment on above: Performed By: #### T SCR30 #### [facility] [address] [place] [address] Chloride [Moles/Vol] 99 mmol/L Normal 98-110 [facility] Comment on above: Performed By: #### T SCR30 #### [place] [phone] CO2 [Moles/Vol] 23 mmol/L Normal 23-32 [facility] Comment on above: Performed By: #### T SCR30 #### [place] [phone] Creatinine [Mass/Vol] 0.81 mg/dL Normal 0.70-1.40 [facility] Comment on above: Performed By: #### T SCR30 #### [place] [phone] eGFR- Amer. >60 Normal >60 [facility] Comment on above: Performed By: #### T SCR30 #### [place] [phone] GFR/1.73 sq M predicted among non-blacks MDRD (S/P/Bld) [Vol rate/Area] mL/min/{1.73_m2} Normal >60 [facility] Comment on above: Performed By: #### T SCR30 #### [place] [phone] Glucose [Mass/Vol] 277 mg/dL High 65-100 [facility] Comment on above: Performed By: #### T SCR30 #### [place] [phone] Potassium [Moles/Vol] 4.1 mmol/L Normal 3.5-5.0 [facility] Comment on above: Performed By: #### T SCR30 #### [phone] Sodium [Moles/Vol] 135 mmol/L Normal 135-146 [facility] Comment on above: Performed By: #### T SCR30 #### [place] [phone] Urea nitrogen [Mass/Vol] 9 mg/dL Low 10-25 [facility] Comment on above: Performed By: #### T SCR30 #### [facility] [address] [place] [address] CASE MGT INIT Mireya 2018 CASE MGT INIT LEODAN HNO ID: [id number] Author: Teresa Webber (Sw) Service: Case Management Author Type: Cargo Inspector Type: Care Mgt Initial Assessment Filed: 07/11/2018 4:00 PM Note Text: CARE MANAGEMENT: ASSESSMENT AND DISCHARGE PLAN SERVICE DATE: 07/11/2018 SERVICE TIME: 3:45 PRIMARY CARE PHYSICIAN: Marvin Cooley MD ADMISSION STATUS: Inpatient Needs Prior to Discharge: Ready for Discharge 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 Health Issues Impacting Discharge Plan: Colon CA, had Laparoscopic sigmoidectomy with IN HOME TUTOR, mobilization of splenic flexure Last Admission Date: none Is this Within the Past 30 days? No Advance Directive: Current Advance Directive: Health Care Power of Deicer Element Winder Machine In Chart: No Carpet Tile Layer Attempted to Assist with AD Completion: Yes Action: Education Provided Health Literacy: 1. How often do you need to have someone help you when you read instructions, pamphlets, or other written material from your doctor or pharmacy? Never - 1 2. How confident are you filling out medical forms by yourself? Extremely - 1 If Patient scores > 3 on either question, the following interventions were put into place: Patient did not score > 3 FUNCTIONAL AND COGNITIVE/BEHAVIORAL PRIOR TO ADMISSION: Baseline Mental Status: Alert AND Oriented, Person, Place , Time and Situation Functional Status: Independent Does Patient Currently Receive Any Community Services or Home Care? None Equipment Prior to Admission: None Has the Patient Been in a Alf Facility in the Past 30 days? No SOCIAL: Living Arrangement: Home Lives With: Spouse Financial Resources: Retired Primary Contact: Extended Emergency Contact Information Primary Emergency Contact: Cristal Murry Address: [address] [place] [address] [facility] Mobile Relation: Spouse Supportive: Yes Other Important Patient Contacts: None Caregiver Assessment: Caregiver is ready, willing and able to meet the patient's needs as recommended by the inter-professional team? No Caregiver Needed Patient's transition needs and plan for meeting these needs: NA Does the patient have an acute stroke diagnosis, or has the patient had a stroke during this admission? No Medication Adherence: Per patient he does not take any prescriptions Are you interested in bedside delivery of your medications? Yes Food Concerns: In the Last Month, Have You had Trouble Getting Food? No trouble getting food During the Last Month, Have You Worried Whether Your Food Would Run Out Before You Had Enough Money to Buy More? No Is the Patient Psychosocially Complex? No ASSESSMENT AND PLAN: Medical Needs: Cancer - active treatment/follow up and had surgery Psychosocial Needs: None FREEDOM OF CHOICE EXPLAINED: N/A POTENTIAL TRANSITION PLANS No Services Indicated Patient is independent and lives with his . They have 2 children in the area. No skilled needs. SIGNATURE: JENNIFER Zambrano PATIENT NAME: eHctor Murry DATE: July 11, 2018 TIME: 3:57 PM PAGER/CONTACT #: [phone] Normal [facility] CBC and Differentialon 07-11 Abs Baso <0.03 Normal <0.11 [facility] Comment on above: Performed By: #### T SCR30 #### [place] [address] Abs Clark 1.17 k/uL High <0.87 [facility] Comment on above: Performed By: #### T SCR30 #### [place] [phone] Abs Neut 9.39 k/uL High 1.45-7.50 [facility] Comment on above: Performed By: #### T SCR30 #### [address] Basophils/100 WBC (Bld) 0.1 % Normal [facility] Comment on above: Performed By: #### T SCR30 #### [place] [phone] DTYPE Auto Diff Normal [facility] Comment on above: Performed By: #### T SCR30 #### [place] [phone] Eosinophils (Bld) [#/Vol] 10*3/uL Normal <0.46 [facility] Comment on above: Performed By: #### T SCR30 #### [phone] Eosinophils/100 WBC (Bld) 0.0 % Normal [facility] Comment on above: Performed By: #### T SCR30 #### [phone] Erythrocyte distribution width (RBC) [Ratio] 14.4 % Normal 11.5-15.0 [facility] Comment on above: Performed By: #### T SCR30 #### [phone] Hematocrit (Bld) [Volume fraction] 33.1 % Low 39.0-51.0 [facility] Comment on above: Performed By: #### T SCR30 #### [place] [phone] Hemoglobin (Bld) [Mass/Vol] 10.5 g/dL Low 13.0-17.0 [facility] Comment on above: Performed By: #### T SCR30 #### [place] [phone] Lymphocytes (Bld) [#/Vol] 1.00 10*3/uL Normal 1.00-4.00 [facility] Comment on above: Performed By: #### T SCR30 #### [place] [phone] Lymphocytes/100 WBC (Bld) 8.6 % Normal [facility] Comment on above: Performed By: #### T SCR30 #### [place] [phone] MCH (RBC) [Entitic mass] 27.6 pG Normal 26.0-34.0 [facility] Comment on above: Performed By: #### T SCR30 #### [place] [phone] MCHC (RBC) [Mass/Vol] 31.7 g/dL Normal 30.5-36.0 [facility] Comment on above: Performed By: #### T SCR30 #### [place] [phone] MCV (RBC) [Entitic vol] 87.1 fL Normal 80.0-100.0 [facility] Comment on above: Performed By: #### T SCR30 #### [place] [address] Monocytes/100 WBC (Bld) 10.1 % Normal [facility] Comment on above: Performed By: #### T SCR30 #### [place] [phone] Neutrophils/100 WBC (Bld) 81.2 % Normal [facility] Comment on above: Performed By: #### T SCR30 #### [place] [phone] Platelet mean volume (Bld) [Entitic vol] 10.9 fL Normal 9.0-12.7 [facility] Comment on above: Performed By: #### T SCR30 #### [place] [phone] Platelets (Bld) [#/Vol] 273 10*3/uL Normal 150-400 [facility] Comment on above: Performed By: #### T SCR30 #### [place] [phone] RBC (Bld) [#/Vol] 3.80 10*6/uL Low 4.20-6.00 [facility] Comment on above: Performed By: #### T SCR30 #### [place] [address] WBC (Bld) [#/Vol] 11.57 10*3/uL High 3.70-11.00 [facility] Comment on above: Performed By: #### T SCR30 #### [place] [address] NURSING PROGon 07-11-2018 NURSING PROG HNO ID: [id number] Author: Radha Freeman) MARGARET Frost Service: ? Author Type: Registered Nurse Type: Nursing Progress Note Filed: 07/11/2018 12:43 PM Note Text: Nursing Progress Note Patient Name: Hector Murry Patient Location: [address]/[id number] Daily Note: Pt AANDOx3. Lungs clear. Bowel sounds active, abdomen soft, tender. + flatus. IVF infusing per orders. Tolerating 500ml clear liquids Q8 hours. Up with stand-by assistance, ambulates pod with minimal assist. C/O abdominal pain, medicated per orders. Noel removed this AM, will monitor urine output. Denies further needs at this time. Will continue POC. This note was completed by: Radha Frost, MARGARET [facility] PROGRESSon 07-11-2018 PROGRESS HNO ID: [id number] Author: Kg Dee (Fel) Service: Colorectal Author Type: Fellow Type: Progress Notes Filed: 07/11/2018 8:49 AM Note Text: COLORECTAL SURGERY POSTOP PROGRESS NOTE SERVICE DATE: 07/11/2018 SERVICE TIME: 6:45AM POD #1 lap sigmoidectomy with IN HOME TUTOR Subjective INTERVAL HPI and PERTINENT ROS: July, passing flatus, no BM, no Nausea or vomiting, pain is well controlled. MEDICATIONS: Current Facility-Administered Medications Medication Dose Route Frequency - enoxaparin 40 mg injection (LOVENOX) 40 mg SUBCUTANEOUS DAILY - dextrose 5% in NaCl 0.45% iv infusion 75 mL/hr INTRAVENOUS CONTINUOUS - acetaminophen 1,000 mg tab(s) (TYLENOL) 1,000 mg ORAL q 8 H - oxyCODONE IR 5 mg tab(s) (ROXICODONE) 5 mg ORAL q 6 H PRN - gabapentin 300 mg cap(s) (NEURONTIN) 300 mg ORAL q 8 H - ondansetron (PF) 4 mg injection (ZOFRAN) 4 mg INTRAVENOUS q 6 H PRN - HYDROmorphone 0.4 mg injection (DILAUDID) 0.4 mg INTRAVENOUS q 3 H PRN - alvimopan 12 mg cap(s) (ENTEREG) 12 mg ORAL BID - lactobacillus rhamnosus 10 billion cell (CULTURELLE) capsule 1 capsule ORAL BID Objective PHYSICAL EXAM: BP 121/83 Pulse 66 Temp 36.6 ?C (97.9 ?F) (Oral) Resp 17 Ht 182.9 cm (6' 0.01 ) Wt 104.6 kg (230 lb 9.6 oz) SpO2 97% BMI 31.27 kg/m? Intake/Output Summary (Last 24 hours) at 07/11/2018 0847 Last data filed at 07/11/2018 0846 Gross per 24 hour Intake 4033 ml Output 1575 ml Net 2458 ml Abdomen soft, mildly distended, appropriately tender, incsions c/d/i LABS: CBC, Coags, BMP, Mg, Phos Recent Labs 07/11/18 0624 WBC 11.57* HB 10.5* HCT 33.1* PLT 273 NA 135 K 4.1 CHLOR 99 CO2 23 BUN 9* CREAT 0.81 GLUC 277* CA 8.6 DATA: Diagnostic tests reviewed for today's visit: Most recent labs and imaging results. Assessment/Plan POSTOP PLANS: D/C noel, CLD, encourage ambulation Noel: No Continued Need For Noel Catheterization Medication and Non-Pharmacologic VTE Prophylaxis/Anticoagulan ts Anticoagulant AND Antiplatelet Medications (From admission, onward) Start Dose Route Frequency Ordered Stop 07/11/18 0900 enoxaparin 40 mg injection (LOVENOX) (Surgical Moderate Risk ) 40 mg SUBCUTANEOUS DAILY 07/10/18 1738 -- 07/10/18 1745 pneumatic compression stockings (tx,ks) 07/10/18 1745 activity - mobilize patient (tx,ks) VTE Prophylaxis: VTE prophylaxis appropriate Reason for Continuing Antibiotics: There is no need to continue antibiotics *A review of daily goals, interventions, and plan of care with the multidisciplinary team and patient has been conducted. The patient?s concerns have been addressed and he/she agrees to proceed with today?s plan of care. SIGNATURE: Kg Dee MD PATIENT NAME: Hector Murry DATE: July 11, 2018 TIME: 8:47 AM PAGER/CONTACT #: [phone] ETX#[id number] [facility] PROGRESS HNO ID: [id number] Author: Madeline Yeung Service: General Surgery Author Type: Resident Type: Progress Notes Filed: 07/10/2018 11:00 PM Note Text: POST OPERATIVE PROGRESS NOTE Patient Name: Hector Murry SERVICE DATE: 07/10/2018 SERVICE TIME: 10:58 PM PRIMARY SERVICE: Colorectal Surgery INTERVAL HPI: The patient is doing well in the immediate postoperative period. Resting well. Denies N/V/SoB/CP. Afebrile, VSS. No complaints at this point. MEDICATIONS: Current Facility-Administered Medications Medication Dose Route Frequency - [START ON 07/11/2018] enoxaparin 40 mg injection (LOVENOX) 40 mg SUBCUTANEOUS DAILY - dextrose 5% in NaCl 0.45% iv infusion 75 mL/hr INTRAVENOUS CONTINUOUS - acetaminophen 1,000 mg tab(s) (TYLENOL) 1,000 mg ORAL q 8 H - oxyCODONE IR 5 mg tab(s) (ROXICODONE) 5 mg ORAL q 6 H PRN - gabapentin 300 mg cap(s) (NEURONTIN) 300 mg ORAL q 8 H - ketorolac 15 mg injection (TORADOL) 15 mg INTRAVENOUS q 6 H - ondansetron (PF) 4 mg injection (ZOFRAN) 4 mg INTRAVENOUS q 6 H PRN - HYDROmorphone 0.4 mg injection (DILAUDID) 0.4 mg INTRAVENOUS q 3 H PRN - [START ON 07/11/2018] alvimopan 12 mg cap(s) (ENTEREG) 12 mg ORAL BID PHYSICAL EXAM: Patient Vitals for the past 24 hrs: BP Temp Temp src Pulse Resp SpO2 Height Weight 07/10/18 1933 140/72 36.9 ?C (98.4 ?F) Oral 78 16 92 % ? ? 07/10/18 1744 ? 182.9 cm (6' 0.01 ) 102.1 kg (225 lb) 07/10/18 1734 154/74 36.7 ?C (98 ?F) Oral 81 16 97 % ? ? 07/10/18 1715 134/75 ? ? 81 14 96 % ? ? 07/10/18 1700 149/78 ? ? 83 16 95 % ? ? 07/10/18 1645 132/78 ? ? 81 12 97 % ? ? 07/10/18 1633 ? 36.2 ?C (97.2 ?F) ? 07/10/18 1630 140/70 ? ? 83 15 95 % ? ? 07/10/18 1615 131/71 ? ? 78 12 94 % ? ? 07/10/18 1600 131/73 ? ? 82 16 93 % ? ? 07/10/18 1554 136/73 37 ?C (98.6 ?F) Temporal Art 81 20 95 % ? ? 07/10/18 1008 156/107 36.3 ?C (97.3 ?F) Temporal 79 18 94 % ? ? BP 140/72 Pulse 78 Temp 36.9 ?C (98.4 ?F) (Oral) Resp 16 Ht 182.9 cm (6' 0.01 ) Wt 102.1 kg (225 lb) SpO2 92% BMI 30.51 kg/m? General appearance: well appearing, alert, in no acute distress Lungs: normal work of breathing, symmetric chest rise Heart: RR, skin WWP Abdomen: Abdomen soft, appropriately tender, non distended Incisions: clean dry and intact Neuro: AOx3, answers questions appropriately : noel with cloudy yellow output LABS: UA negative ASSESSMENT AND PLAN: 63 year old male POD 0 s/p Laparoscopic sigmoidectomy with IN HOME TUTOR, mobilization of splenic flexure -routine post op care Ana Yeung MD General Surgery PGY-1 Green Surgery Pager: [phone], weekdays 6A-6P mail caller pager: [phone], nights and weekends Date: 07/10/2018 Time: 10:58 PM [facility] ANES Bernadine 07-10-2018 ANES POST HNO ID: [id number] Author: Mason Herrmann Service: Anesthesiology Author Type: Anesthesiologist Type: Anesthesia PostOp Filed: 07/10/2018 4:28 PM Note Text: POST ANESTHESIA EVALUATION NOTE SERVICE DATE: 07/10/2018 SERVICE TIME: 1628 : 1955 Vitals: 07/10/18 1008 07/10/18 1554 Temp: 36.3 ?C (97.3 ?F) 37 ?C (98.6 ?F) 07/10/18 1008 07/10/18 1554 07/10/18 1600 07/10/18 1615 BP: 156/107 136/73 131/73 131/71 07/10/18 1554 07/10/18 1600 07/10/18 1615 07/10/18 1630 Pulse: 81 82 78 83 07/10/18 1554 07/10/18 1600 07/10/18 1615 07/10/18 1630 Resp: 20 16 12 15 07/10/18 1554 07/10/18 1600 07/10/18 1615 07/10/18 1630 SpO2: 95% 93% 94% 95% Validated Vital Signs: Yes POST ANES STATUS: No apparent anesthetic complications. The patient is appropriately hydrated with stable respiratory and cardiovascular status. Patient has safe and adequate airway control. The patient has appropriate pain relief and no significant post operative nausea or vomiting. The patient has achieved baseline mental status. Intra-Operative Events: No Significant Anesthesia Events Further assessment by Anesthesia Service: None Other Remarks: SIGNATURE: Mason Herrmann MD PATIENT NAME: Hector Murry DATE: July 10, 2018 TIME: 4:27 PM PAGER/CONTACT #: [facility] ANES PREOPon 07-10-2018 ANES PREOP HNO ID: [id number] Author: Antelmo Nicholson Service: Pain Management Author Type: Anesthesiologist Type: Anesthesia PreOp Filed: 07/10/2018 10:58 AM Note Text: REGIONAL ANESTHESIOLOGY DAY OF SURGERY NOTE PATIENT NAME: Hector Murry : 1955 Procedure(s) (LRB): LAPAROSCOPIC COLECTOMY SIGMOID COLON W/ COLORECTAL ANASTOMOSIS (N/A) Surgeon(s): Navjot Shultz Estimated body mass index is 30.52 kg/m? as calculated from the following: Height as of 07/05/18: 182.9 cm (6'). Weight as of 07/05/18: 102.1 kg (225 lb). ASA Class: 2 Adequate NPO status: Yes Allergies: ALLERGIES Allergen Reactions - Penicillin Hives Airway Assessment: MP 1; Neck ROM: Full ROM without neurologic symptoms; Airway Evaluation: No significant abnormalities and Sommers Present Dentition: Teeth intact Symptoms of Sleep Apnea: Denies Most recent lab results: Hemoglobin 12.7 07/05/2018 Hematocrit 39.6 07/05/2018 Potassium 4.7 07/05/2018 Platelet Count 300 07/05/2018 Creatinine 0.93 07/05/2018 EKG: normal EKG, normal sinus rhythm and sinus bradycardia Vitals: 07/10/18 1008 BP: 156/107 Pulse: 79 Resp: 18 Temp: 36.3 ?C (97.3 ?F) TempSrc: Temporal SpO2: 94% Previous Anesthesia: No history of adverse event Family history of anesthetic problems: None Additional Physical Exam: Lungs: Lungs clear to auscultation. Good diaphragmatic excursion. Cardiac: Normal S1 and S2; no rubs, no murmurs and no gallops Additional pertinent findings: N/A Other Medical Problems/ Important Considerations: Denies chest pain and SOB with exertion. Exercises regularly- walks golf course Denies GERD. Chronic Beta Guy medication administered within 24 hours: N/A Anesthetic risks, benefits, alternatives, personnel and consent discussed: Yes Patient agrees to proceed: Yes Blood Products: Not anticipated for this procedure Anesthetic Plan: General ETT; Standard ASA Monitors Pain Management Plan: ROOT Protocol [facility] Chart Review ACTIVE PROBLEM LIST Malignant Neoplasm of Sigmoid Colon (Hcc) Obesity, Class I, Bmi 30-34.9 No past medical history on file. PAST SURGICAL HISTORY Procedure Laterality Date - COLONOSCOPY 06/2018 - EAR SURGERY HX y-10 - PAST SURGICAL HISTORY OF right shoulder lesion - REMOVAL OF TONSILS,<11 Y/O Tonsillectomy - REPAIR UMBILICAL HERNIA 1960 FAMILY HISTORY Problem Relation Age of Onset - Diabetes Mother Social History: Social History Tobacco Use - Smoking status: Never Smoker - Smokeless tobacco: Never Used Substance Use Topics - Alcohol use: Yes Comment: 4-5 beers a week - Drug use: Never No current facility-administered medications on file prior to encounter. Current Outpatient Medications on File Prior to Encounter: metroNIDAZOLE (FLAGYL) 500 mg tablet Take 1 tablet by mouth as directed. Take 1 tablet at 6 pm, another at 7 pm and again at 11 pm, the evening prior to surgery neomycin 500 mg tablet Take 2 tablets by mouth as directed. Take 2 tablets at 6 pm, again at 7 pm and at 11 pm the evening prior to surgery Inpatient medications reviewed in [facility]. I have interviewed and examined the patient. I have reviewed the medical record and/or the pre-anesthesia evaluation, pertinent labs, and test results. Significant changes in the patient's condition since the History and Physical, not otherwise documented in primary service progress notes: No This contains updated information obtained within 48 hours of Surgery/Procedure. SIGNATURE: Antelmo Nicholson MD PATIENT NAME: Hector Murry DATE: July 10, 2018 TIME: 10:56 AM PAGER/CONTACT #: [facility] BRIEF OP NOTon 07-10-2018 BRIEF OP NOT HNO ID: [id number] Author: Mio Mortensen Service: Colorectal Author Type: Resident Type: Brief Op Note Filed: 07/10/2018 3:44 PM Note Text: BRIEF OP NOTE LOG ID: [id number] Surgery/Procedure Date: 07/10/2018 Incision/Procedure Start Time: 12:09 PM Incision Close/Procedure End Time: 3:40 PM Surgeon(s)/Proceduralist (s) and [employer] Plant Supervisor(s): Surgeon(s) and Role: * Navjot Shultz - Primary * Mio Mortensen - Resident - Assisting Procedure(s): Laparoscopic sigmoidectomy with IN HOME TUTOR, mobilization of splenic flexure Anesthesia: General Findings: Sigmoid tumor, negative leak test on sigmoidoscopy Estimated Blood Loss: 75 mls Specimens: sigmoid colon Complications: None Pre-Op/Pre-Procedure Diagnosis: Colon cancer Post-Op/Post-Procedure Diagnosis: Colon cancer (HCC) [C18.9] SIGNATURE: Mio Mrotensen MD PATIENT NAME: Hector Murry DATE: July 10, 2018 TIME: 3:43 PM PAGER/CONTACT #: [phone] [facility] Confirm Blood Typeon 019 ABO/RH(D) Positive [facility] Comment on above: Performed By: #### C ONABO #### [facility] [address] [place] [address] HISTORY PHYSICALon 9 HISTORY PHYSICAL HNO ID: [id number] Author: Mio Mortensen Service: Colorectal Author Type: Resident Type: HANDP Filed: 07/10/2018 11:06 AM Note Text: UPDATED HISTORY AND PHYSICAL EXAMINATION SERVICE DATE: 07/10/2018 SERVICE TIME: 11:06 AM PHYSICAL EXAM MUST BE COMPLETED ON ADMISSION The History and Physical (completed in the past 30 days) has been reviewed and the patient has been examined. The contents accurately reflect the patient's condition with the following additions or revisions since the HANDP was completed. Examination indicates no changes. This HANDP can be found in the attached. SIGNATURE: Mio Mortensen MD PATIENT NAME: Hector Murry DATE: July 10, 2018 TIME: 11:06 AM PAGER: [facility] NURSING PROGon 07-10-2018 NURSING PROG HNO ID: [id number] Author: Ike (Rn) MARGARET Aguirre Service: ? Author Type: Registered Nurse Type: Nursing Progress Note Filed: 07/10/2018 7:14 PM Note Text: Nursing Progress Note Patient Name: Hector Murry Patient Location: [place] [address] [address] Daily Note:07/10/18 1830- Patient arrived to room 321 via bed from PACU at approximately 1830, his and son are at bedside. Patient is alert and oriented times three, calm and cooperative. Speech is clear and coherent. Vitals are stable, oxygen saturation is adequate on room air (94%). Hand grasps and push/pulls are equal bilaterally, pulses are palpable with good movement and sensation. No edema noted. Skin is warm, dry and intact. Cleaned patient for stool and provided noel care. Catheter is draining cloudy yellow urine with sediment (paged surgery to make them aware). Lungs are clear throughout. Provided patient with an incentive spirometer, he was able to demonstrate its proper use. Abdomen is softly distended, tender at umbilicus. Lap sites and small incision are closed with a topical adhesive, well approximated, no drainage noted. Ice chips provided and explained to patient NPO status with ice chips and medications. Pain rated at a 5/10 at this time. Medicated with scheduled tylenol and neurontin, started fluids per orders. Oriented to room, call light and belongings are within reach. This note was completed by: Ike Aguirre RN [facility] NURSING PROG HNO ID: [id number] Author: Owen (Rn) MARGARET Lopez Service: Nursing Author Type: Registered Nurse Type: Nursing Progress Note Filed: 07/10/2018 2:10 PM Note Text: Nursing Progress Note Patient Name: Hector Murry Patient Location: [facility] OR POOL/[facility] OR POOL Daily Note: 12:20 PMUpdated family via pager system. 1:13 PMUpdated family via pager system. 2:10 PMUpdated family via pager system. This note was completed by: Owen Lopez RN [facility] OPERATIVE NOon 07-10-2018 OPERATIVE NO HNO ID: [id number] Author: Navjot Shultz Service: Colorectal Author Type: Physician Type: Operative Report Filed: 07/12/2018 8:05 AM Note Text: [facility] - Operative Report HECTOR MURRY : 1955 AGE: 63. SEX: M PATIENT TYPE: I HOSP SVC: CORS LOCATION: [facility][1] ATTENDING PHYSICIAN: Navjot Shultz M.D. CSN NUMBER: [id number] DATE OF SURGERY/PROCEDURE: 07/10/2018 INCISION/PROCEDURE START TIME: 1209 hours INCISION CLOSE/PROCEDURE END TIME: 1540 hours. PREOPERATIVE DIAGNOSIS: Sigmoid colon cancer. POSTOPERATIVE DIAGNOSIS: Sigmoid colon cancer. SURGEON: Navjot Shultz M.D. LOAN OFFICER ASSISTANT: Dr. Rodrick Hernández. SURGERY/PROCEDURE: Laparoscopic sigmoid colectomy with laparoscopic mobilization of splenic flexure and flexible sigmoidoscopy. ANESTHESIA: General FINDINGS: Mid to proximal sigmoid cancer tattoo marking at that site. INDICATION: The patient is a 63-year-old male who recently underwent a colonoscopy for screening. He was found to have obstructing sigmoid colon cancer. It was unable to be traversed. Despite that the patient did not complain of any obstructive symptoms. Preoperative staging did not show any evidence of metastatic disease and so recommended segmental resection. Risks of procedure were explained including bleeding, infection, anastomotic leak, and the possibility of an ostomy, and he agreed to proceed. DESCRIPTION OF PROCEDURE: Patient taken to the operating placed on OR table in lithotomy position. He was placed under general anesthesia. He was given preoperative antibiotics and DVT prophylaxis. His abdomen was prepped and draped in normal sterile fashion. We began with umbilical incision. He had umbilical hernia. We entered through his umbilical hernia and inserted a 10 mm Tanika port. We then inserted 3 additional ports initially and then a 4th port in the epigastrium due to the difficult splenic flexure mobilization. Initially, we assessed the abdominal cavity. There was no evidence of metastatic disease. We identified the tumor in the mid to proximal sigmoid colon. It was bulky and there was tattoo carmen adjacent to it. We began with lifting the sigmoid colon up and out of the pelvis. We incised the peritoneum along the medial side below the superior rectal artery and carried it to the origin of the inferior mesenteric artery and high ligation was performed with the LigaSure. We continued mobilization in a medial to lateral fashion, mobilizing the entirety of the left colon from the medial side. We divided the inferior mesenteric vein just past the point of the duodenum. Next, we turned our attention laterally. We incised the peritoneum along the left gutter and carried up to the splenic flexure. He had a very thick heavy omentum draped over the descending colon as well as the entirety of the splenic flexure. We then attempted to come through the gastrocolic ligament and released the omentum off the colon. This was a fairly tedious dissection. It took 45 minutes to an hour to mobilize the splenic flexure and felt it was necessary in order to get adequate reach in the pelvis. However, we were able to completely free the splenic flexure and released all our attachments at the flexure. Next, we turned attention back down to the pelvis. We incised the peritoneum at the level of the true rectum. This was well beyond 5 cm from the distal margin of the tumor. LigaSure was used to transect the mesorectum and an Endo-FILOMENA stapler was used to transect the rectum in 2 firings using a purple stapler. The umbilical port site was then extended and a small Aurelio wound retractor was inserted. The colon was then brought through the incision and laid on towels. We then divided the mesocolon proximal to the RIKA pedicle at the sigmoid descending junction. The colon was divided sharply between clamps. There was pulsatile bleeding at the point we transected. The specimen was then removed. We then used 2-0 Prolene to create a pursestring and a 31 EEA anvil was inserted. The colon was returned back to the abdominal cavity and we then reestablished insufflation. Colon laid very nicely in the pelvis without tension. Following insertion of serial dilators, the stapler was inserted, and we created a colorectal anastomosis. Stapler was removed and 2 intact donuts were visualized. We then performed on-table flexible sigmoidoscopy under saline. There was no air leak seen from the anastomosis and an intact circular anastomosis was visualized. The colonoscope was then removed. We then irrigated the pelvis and suctioned it clear. Right lower quadrant 12 mm site was closed with a laparoscopic suture passer. Extraction of wound in the umbilicus was then closed with [id number] #1 PDS. All the incisions were copiously irrigated and suctioned. We then closed the skin with 4-0 Monocryl and adhesive skin glue. The patient was then awoken from anesthesia and taken to recovery room. Navjot Shultz M.D. SATINDER:[id number] /[id number] [facility] PT EDon 07-10-2018 PT ED HNO ID: [id number] Author: Amaya (Rn) MARGARET Juan Service: Nursing Author Type: Registered Nurse Type: Patient Education Filed: 07/10/2018 10:08 AM Note Text: PATIENT EDUCATION TOPIC: PROCEDURE / SURGERY: Pre-op Teaching: Protocols PATIENT NAME: Hector Murry PATIENT LOCATION: [facility] OR POOL/[facility] OR POOL READINESS TO LEARN COGNITIVE ABILITY: Alert and oriented MOTIVATION TO LEARN: Interested FAMILY SUPPORT: Unable to assess - Family not present INSTRUCTION PROVIDED TO: Patient PATIENT LEARNS BEST BY: Individual Instruction FACTORS AFFECTING LEARNING: None PHYSICAL LIMITATIONS AFFECTING LEARNING: None LEARNING RESPONSE DIAGNOSIS: ADULT: surgery PATIENT/FAMILY RESPONSE: Verbalizes understanding of: PRE-OPERATIVE INSTRUCTIONS-Correct action to take to follow pre-operative instructions METHOD OF INSTRUCTION: Individual instruction FOLLOW-UP PLAN: Complete - No need for follow-up INSTRUCTIONAL AIDS USED: NA SUPPLEMENTAL MATERIAL PROVIDED TO PATIENT: None REFERRAL (RECOMMENDATION): None Electronically Signed By: Amaya Juan RN [facility] SURGICAL PATHOLOGYon 019 SURGICAL PATHOLOGY ADDITIONAL PROCEDURES PRESENT Specimen originated from [facility] Specimen #: [id number] Submitting Physician: NAVJOT SHULTZ __ FINAL DIAGNOSIS Sigmoid colon, resection - Invasive moderately differentiated adenocarcinoma (see comment and synoptic report). - Thirty-eight lymph nodes, negative for metastatic adenocarcinoma (0/38). JEL/kll 07/13/2018 COMMENT Given the presence of follicular hyperplasia within the lymph nodes, several immunohistochemical stains have been performed on block A31. CD3 and C20 stains highlight the respective T-cell and B-cell populations. The B-cells are negative for CD5 and cyclin D1. CD10 and BCL-6 highlight germinal centers. The germinal center B-cells are negative for BCL-2. 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 There is no evidence of lymphoma. Laboratory Developed Test (LDT) Disclaimer: Positive and negative controls stain appropriately. Performance characteristics of immunohistochemical, immunofluorescent and chromogenic in-situ hybridization tests have been determined by [facility] Pathology and Laboratory Medicine [place] (RT-PLMI) in a manner consistent with CLIA requirements. One or more of these tests have not been cleared or approved by the FDA. [facility] is regulated under CLIA as qualified to perform high-complexity testing. These tests are used for clinical purposes. They should not be regarded as investigational or for research. SYNOPTIC REPORT OF PIERSON PATHOLOGIC FINDINGS SIGMOID COLON: COLON AND RECTUM:RESECTION, INCLUDING TRANSANAL DISK EXCISION OF RECTAL NEOPLASMS WORKSHEET: Procedure: Low anterior resection Tumor Site: Rectosigmoid Tumor location: Entirely above the anterior peritoneal reflection Tumor Size: Greatest dimension: 8 cm Macroscopic Tumor Perforation: Not identified Macroscopic Intactness of Mesorectum: Complete Histologic Type: Adenocarcinoma Histologic Grade: G2: Moderately differentiated Tumor Extension: Tumor invades through the muscularis propria into pericolorectal tissue Margins: All margins are uninvolved by invasive carcinoma, high-grade dysplasia, intramucosal adenocarcinoma, and adenoma Margins examined: proximal, distal, mesenteric, and circumferential (radial) margins Distance of invasive carcinoma from closest margin: 60 mm Distance of invasive carcinoma from closest margin - Specify margin: circumferential (radial) margin Distance of tumor from radial margin (required only for rectal tumors): 60 mm Distance of tumor from distal margin (recommended for rectal tumors): 72 mm Proximal Margin: Uninvolved by invasive carcinoma Distal Margin: Uninvolved by invasive carcinoma Distance of invasive carcinoma from distal margin 72mm Circumferential Radial Margin: Uninvolved by invasive carcinoma Distance of invasive carcinoma from circumferential radial margin: 60mm Mesenteric Margin: Uninvolved by invasive carcinoma Treatment Effect: No known presurgical therapy Lymphovascular Invasion: Not identified Perineural Invasion: Present Tumor Budding: Number of tumor buds in 1 hotspot field (specify total number in area=0.785mm2): 0 Low score (0-4) Tumor Deposits: Not identified Regional Lymph Nodes: Number of nodes involved: 0 Number of nodes examined: 38 Pathologic Stage Classification (pTNM,AJCC 8th ed) TNM Descriptors: Not applicable Pathologic Staging (pTNM): pT3: Tumor invades through the muscularis propria into pericolorectal tissues Regional Lymph Nodes (pN): pN0: No regional lymph node metastasis Distant Metastasis (pM): Not applicable/Not confirmed pathologically in this case Consensus review performed with attendance of rectal cancer multidisciplinary steam engineer: Yes Ancillary Studies: Immunohistochemistry Studies for Mismatch Repair Proteins-Addendum to follow -------- Shen Beck M.D. (Electronic Signature) SPECIMEN SUBMITTED A: SIGMOID COLON ADDITIONAL PROCEDURE(S) MMR STATUS Date Ordered: 07/19/2018 Date Reported: 07/19/2018 Procedure Results and Interpretation MMR Status Report - Immunohistochemistry Colon, invasive adenocarcinoma, immunohistochemical staining for mismatch repair proteins: Result: MLH1, PMS2, MSH2, and MSH6 proteins with normal expression in carcinoma nuclei. Mismatch repair (MMR) status: Proficient (microsatellite stable) Specimen: [id number] Block: A9 Comment: Intact expression of MMR (mismatch repair) proteins by immunohistochemistry is highly correlated with a microsatellite stable result by MSI (microsatellite instability) PCR analysis, and the results from these tests are viewed as clinically equivalent by the FDA. This result excludes at least 90-95% of Shi syndrome. These tests are an imperfect screen because some mutations may not produce loss of immunohistochemical expression. Further, additional proteins are present in the mismatch repair gene complex that, when defective, might also cause Shi syndrome. In cases with a high clinical suspicion and appropriate family history, MSI molecular testing can be performed upon request. In clinical trials, the clinical benefit of pembrolizumab, an anti-programmed 1 (PD-1) immune checkpoint inhibitor,was predicted by the tumor's mismatch repair status;mismatch repair deficient (dMMR) tumors are more responsive to PD-1 blockade than mismatch repair proficient tumors (NEJM 2015;372:2509-20 and Science 2017 Oct 28;357(9660):678-885). Subsequently, pembrolizumab was FDA-approved for the treatment of adult and pediatric patients with unresectable or metastatic solid tumors that display microsatellite instability-high (MSI-H) by PCR assay or dMMR by immunohistochemistry (IHC).The FDA does not distinguish between PCR and IHC-based assays, as these are considered equivalent and complimentary tests. As clinically indicated, and in the appropriate setting of genetic counseling with informed patient consent, further genetic testing may be helpful. For more information or questions about this result, please call the [facility] [employer] [facility] at . Mismatch Repair Protein Immunohistochemistry Results (Loss or Normal): MLH1: Normal PMS2: Normal MSH2: Normal MSH6: Normal MLH1 promoter methylation assay ordered: No Laboratory Developed Test (LDT) Disclaimer: Positive and negative controls stain appropriately. Performance characteristics of immunohistochemical, immunofluorescent and chromogenic in-situ hybridization tests have been determined by [facility] Pathology and Laboratory Medicine [place] ([facility]) in a manner consistent with CLIA requirements. One or more of these tests have not been cleared or approved by the FDA. [facility] is regulated under CLIA as qualified to perform high-complexity testing. These tests are used for clinical purposes. They should not be regarded as investigational or for research. [facility] [place] Procedure Pathologist: Papito Reilly M.D., Ph.D. Electronic Signature CLINICAL DATA COLON CANCER STAPLED SHUT DISTAL MARGIN GROSS DESCRIPTION A. Received in formalin designated sigmoid colon is a segment of bowel measuring 23.5 cm in length and ranging in circumference from 2.5 to 6.5 cm. The proximal margin is inked blue, and the distal margin is inked orange. The specimen appears to have been transected distally at or above the anterior peritoneal reflection. The posterior rectal soft tissue is complete. The serosal aspect is woody-pink, smooth with fat wrapping. The wall of the bowel averages 0.6 cm in thickness. On the mucosal surface is a circumferential woody-pink ulcerated mass measuring 8 x 2.8 x 1.4 cm. The mass straddles the posterior peritoneal reflection is located 7.2 cm from the distal margin and 8.3 cm from the proximal margin. Sectioning of the mass reveals it goes through the bowel wall, into the underlying soft tissue and is located 6 cm from the posterior rectal soft tissue margin and 7.5 cm from the mesenteric soft tissue margin. The mass is present at the area of fat wrapping and extends into that area of wrapped fat. The remainder of the mucosal surface is woody with normal mucosal ridges. Sectioning reveals tattoo ink present within the bowel wall near the mass. No diverticula are identified. Sectioning and palpation of the attached soft tissue reveals multiple woody-pink lymph nodes measuring up to 1.4 cm in greatest dimension. Women'S Basketball Coach sections are submitted as follows: A1 perpendicular distal margin, A2 perpendicular proximal margin, A3 perpendicular mesenteric soft tissue margin, A4 perpendicular rectal soft tissue margin, A5 deepest extent of mass, A6 mass at area of fat wrapping, A7 mass in relation to serosa, A8 mass with distal uninvolved bowel, A9 mass with proximal uninvolved bowel, A10 4 cm from the distal margin, A11 18 cm from the distal margin, A12-A32 one lymph node bisected totally submitted per cassette, A33 six lymph nodes totally submitted, A34 three possible lymph nodes totally submitted, A35 six possible lymph nodes totally submitted, A36 four possible lymph nodes totally submitted. BF/kr 07/11/2018 Gross examination performed at [place] [address] Date of Report: 07/18/2018 Date of Procedure: 07/10/2018 Date of Receipt: 07/11/2018 Submitted by: NAVJOT SHULTZ [facility] [place] [address]. CLIA Number: [id number] Normal [facility] Urinalysison 07-10-2018 Bilirubin, Urine Negative Normal Negative [facility] Comment on above: Performed By: #### T SCR30 #### [place] [phone] Cast SEE COMMENT Critically abnormal 0 [facility] Comment on above: Result Comment: 5-10 Hyaline Cast Performed By: #### T SCR30 #### [place] [phone] Clarity (U) Cloudy Critically abnormal Clear [facility] Comment on above: Performed By: #### T SCR30 #### [place] [address] Color (U) Yellow Normal Yellow [facility] Comment on above: Performed By: #### T SCR30 #### [place] [phone] Comments SEE COMMENT Normal [facility] Comment on above: Result Comment: Micr oscopic Examination Performed Performed By: #### T SCR30 #### [place] [phone] Crystals LM Nom (Urine sed) SEE COMMENT Critically abnormal 0 [facility] Comment on above: Result Comment: Many Amorphous Performed By: #### T SCR30 #### [place] [phone] Glucose Ql (U) Trace Critically abnormal Negative [facility] Comment on above: Performed By: #### T SCR30 #### [place] [phone] Hemoglobin/Blood,Ur Negative Normal Negative [facility] Comment on above: Performed By: #### T SCR30 #### [place] [phone] Ketones Ql (U) Trace Critically abnormal Negative [facility] Comment on above: Performed By: #### T SCR30 #### [address] Leukest Trace Critically abnormal Negative [facility] Comment on above: Performed By: #### T SCR30 #### [place] [phone] Mucus Ql (Urine sed) Present Normal [facility] Comment on above: Performed By: #### T SCR30 #### [place] [phone] Nitrite Ql (U) Negative Normal [facility] Comment on above: Performed By: #### T SCR30 #### [place] [phone] pH (Bld) 5.0 Normal 5.0-8.0 [facility] Comment on above: Performed By: #### T SCR30 #### [phone] Protein (U) [Mass/Vol] 30 mg/dL Critically abnormal Negative [facility] Comment on above: Performed By: #### T SCR30 #### [place] [phone] RBC (U) [#/Vol] 0-5 Critically abnormal Negative [facility] Comment on above: Performed By: #### T SCR30 #### [place] [phone] Specific [place], Ur 1.028 Normal 1.005-1.030 [facility] Comment on above: Performed By: #### T SCR30 #### [place] [phone] Urobilinogen Qn (U) <2.0 Normal <2.0 [facility] Comment on above: Performed By: #### T SCR30 #### [place] [phone] WBC (Bld) [#/Vol] 0-5 Critically abnormal Negative [facility] Comment on above: Performed By: #### T SCR30 #### [place] [phone] Urine Cultureon 07-10-2018 Bacteria identified Cx Nom (U) Sp. Request/Comment: - Specimen received in preservative Culture Result - No growth (<1,000 CFU/ml) [facility] Comment on above: Performed By: #### U RCUL ####[place] [phone] [phone] NURSING PROGon 07-09-2018 NURSING PROG HNO ID: [id number] Author: Sana (Rn) MARGARET Romo Service: Nursing Author Type: Registered Nurse Type: Nursing Progress Note Filed: 07/09/2018 9:22 AM Note Text: Addendum: CEA/ Confirmed EKG results in epic. MGreiciusRN Normal [facility] NURSING PROGon 07-06-2018 NURSING PROG HNO ID: [id number] Author: Joelle (Rn) Vasquez RN Service: ? Author Type: Registered Nurse Type: Nursing Progress Note Filed: 07/06/2018 9:59 AM Note Text: Addendum: CBC, CMP, and TANDS within acceptable limits. CEA and EKG pending. Joelle Ovalle RN [facility] NURSING PROGon 07-05-2018 NURSING PROG HNO ID: [id number] Author: Sola HerringRn) MARGARET Mix Service: General Surgery Author Type: Registered Nurse Type: Nursing Progress Note Filed: 07/05/2018 1:38 PM Note Text: PACC Nurse Progress Note History AND Physical: PACC Visit Date: 07-05-18 Original HANDP Date: N/A ED visit Date: N/A Outside HANDP Scanned Date: N/A Labs Within Last 6 Months: CBC: Date 07-05-18 BMP/CMP: Date 07-05-18 TYPE AND SCREEN: Date 07-05-18 OTHER TEST: CEA, Date 07-05-18 in process Imaging Within Last 12 Months: N/A Cardiac Testing: EKG in last 12 Months: Yes: Date: 07-05-18, Comment: Pending Last Menstrual Period: LMP Date: N/A Postmenopausal >1yr: N/A, S/P Hysterectomy: N/A BMI Percentile (PEDS): N/A Risk Assessment: N/A Anesthesia Review: N/A Narrative: N/A Pre-op Considerations: N/A Chart Check: IN PROGRESS-CBC, CMP, TANDS, CEA in process/ EKG Pending Sola Mix RN July 05, 2018 1:37 PM [facility] Type and SCR (30D)on 019 ABO/RH(D) Positive [facility] Comment on above: Performed By: #### T SCR30 #### [facility] [address] [place] [address] HOSPon 06-28-2018 HOSP Patient:Anastasiya Murry MRN: Height:6' 0 (1.829 m) Weight:225 lb (102.059 kg) Outpatient Medications as of 07/10/18: metroNIDAZOLE (FLAGYL) 500 mg tablet neomycin 500 mg tablet Admission/Clinic Administered Medications as of 07/10/18: lidocaine 10 mg/mL (1 %) 1-2 mg injection (XYLOCAINE) lactated ringers infusion ciprofloxacin 400 mg in D5W 200 mL (CIPRO) metroNIDAZOLE 500 mg PREMIX piggyback (FLAGYL) enoxaparin 40 mg injection (LOVENOX) Problem List: Malignant neoplasm of sigmoid colon (HCC) [C18.7] Obesity, Class I, BMI 30-34.9 [E66.9] Allergies: Penicillin Date Verified: 07/10/18 Lab Values Lab Value Units Date High Low POTA* 4.7 mmol/L 07/05/2018 5.1 3.7 CECILIO* 39.6 % 07/05/2018 51.0 39.0 Progress Notes ([facility]): Navjot Shultz MD 06/30/2018 2:28 PM Signed New Patient Consult REASON FOR VISIT Hector Murry is a 63 year old male who is scheduled for a consult at the request of Hitesh Gastelum for colon cancer. My final recommendations will be communicated back to the requesting physician by the way of the shared medical record, fax, or via US Mail History of Present Illness: Hector Murry is a 63 year old male who was referred for evaluation of a newly diagnosed sigmoid mass highly concerning for colon cancer. This was his first colonoscopy as a screening. He denies any recent change in bowel habits, blood in the stool, constipation or bloating. The colonoscopy performed by Dr. Gastelum showed an obstructing mass in the sigmoid colon at 25cm that was not able to be traversed. He denies weight loss. No family history of colon cancer. CTimaging reviewed - CT chest normal - CT abdomen/pelvis- thickening and narrowing in the sigmoid colon consistent with known mass lesion. Liver lesion suggestive of cyst Imaged viewed with patient and discussed with him and his . Pathology- pending No past medical history on file. PAST SURGICAL HISTORY Procedure Laterality Date - COLONOSCOPY 06/2018 No family history on file. Social History Tobacco Use - Smoking status: Never Smoker - Smokeless tobacco: Never Used Substance Use Topics - Alcohol use: Not on file - Drug use: Not on file The patient has the following: Problem List None MEDICATIONS Current Outpatient Medications: metroNIDAZOLE (FLAGYL) 500 mg tablet Take 1 tablet by mouth as directed. Take 1 tablet at 6 pm, another at 7 pm and again at 11 pm, the evening prior to surgery Disp: 3 tablet Rfl: 0 neomycin 500 mg tablet Take 2 tablets by mouth as directed. Take 2 tablets at 6 pm, again at 7 pm and at 11 pm the evening prior to surgery Disp: 6 tablet Rfl: 0 No current facility-administered medications for this visit. CURRENT ALLERGIES ALLERGIES Allergen Reactions - Penicillin Hives REVIEW OF SYSTEMS PAIN ASSESSMENT: General: No weight loss, malaise or fevers. 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 No neurological symptoms or problems. Respiratory: No history of current cough or dyspnea, or pneumonia in the past 6 weeks. No history of respiratory/pulmonary symptoms or problems Cardiovascular: No history of HTN requiring medication, no history of angina, CHF, MS, cardiac surgery or stents. Denies rest pain, gangrene or revascularization/amputa tion for PVD. No history of cardiovascular symptoms or problems. GI: See HPI : No history of UTI in past 6 weeks. No history of renal failure. Not currently on or requiring dialysis. No history of symptoms or problems. Endocrine: No history of diabetes. Has not taken steroids within the past 30 days. No history of endocrinological symptoms or problems. Hematology: No history of bleeding or clotting disorder. Pt is not taking anti-coagulation or platelet medications. No history of hematological symptoms or problems. Oncology: No history of CA metastasis, chemo within 30 days, or radiotherapy within 90 days. Has not lost 10% of body wt in 6 months. No history of oncological symptoms or problems. Psych: No history of psychiatric symptoms or problems. Musculoskeletal: Negative for joint pain or swelling, back pain or muscle pain. Skin: Negative for lesions, rash and itching. PHYSICAL EXAMINATION BP 131/77 Pulse 79 Ht 6' 0 (1.83m) Wt 225 lb (102.1kg) SpO2 98% BMI 30.51 kg/(m2). General Appearance: Well appearing, alert, in no acute distress Skin: Skin color, turgor normal Head: Normocephalic, Oropharynx: moist mucous membranes Lungs: Non-labored breathing Heart: regular rate/rhythm Extremities: No deformities or edema Abdomen: Abdomen soft, non-tender. No masses, no hernia Diagnostic tests reviewed for today's visit: I have confirmed and edited as necessary, the PFSH and ROS obtained by others. Assessment ASSESSMENT Sigmoid mass, likely malignant RECOMMENDATION - Discussed with patient laparoscopic sigmoid colectomy. Risks of the surgery were explained including bleeding, infection, anastomotic leak, and the possibility of an ostomy. The patient agreed to proceed. - We will tentatively schedule surgery in the next 2-3 weeks. - Obtain preop labs and CEA level Navjot Shultz MD DATE: 06/28/18 TIME: 8:06 AM Previous Version Normal [facility] Vital Signs Date Time Vital Sign Value Performing Clinician Facility 11-27-2023 09:210400 Body height 182.88 cm [facility] 11-27-2023 09:[id number] Body mass index (BMI) [Ratio] 29.7 kg/m2 [facility] 11-27-2023 09:[id number] Body weight 99.33 kg [facility] 11-27-2023 09:21-0400 Diastolic blood pressure 95 mm[Hg] [facility] 11-27-2023 09:21-0400 Heart rate 60 /min [facility] 11-27-2023 09:21-0400 Respiratory rate 12 /min [facility] 11-27-2023 09:21-0400 Systolic blood pressure 170 mm[Hg] [facility] 05-26-2023 08:30-0500 Body height 182.88 cm Marvin Ball Other [facility] [place] Other 05-26-2023 08:30-0500 Body mass index (BMI) [Ratio] 31.05 kg/m2 Marvin Ball Other [facility] [place] Other 05-26-2023 08:30-0500 Body weight 103.87 kg Marvin Ball Other [facility] [place] Other 05-26-2023 08:30-0500 Diastolic blood pressure 81 mm[Hg] Marvin Ball Other [facility] [place] Other 05-26-2023 08:30-0500 Respiratory rate 12 /min Marvin Ball Other [facility] [place] Other 05-26-2023 08:30-0500 Systolic blood pressure 161 mm[Hg] Marvin Ball Other [facility] Other 05-31-2022 12:30-0500 Body height 182.88 cm Marvin Ball Other [facility] Other 05-31-2022 12:30-0500 Body mass index (BMI) [Ratio] 31.84 kg/m2 Marvin Ball Other [facility] Other 05-31-2022 12:30-0500 Body weight 106.51 kg Marvin Ball Other [facility] Other 05-31-2022 12:30-0500 Diastolic blood pressure 82 mm[Hg] Marvin Ball Other [facility] Other 05-31-2022 12:30-0500 Respiratory rate 12 /min Marvin Ball Other [facility] Other 05-31-2022 12:30-0500 Systolic blood pressure 126 mm[Hg] Marvin Ball Other [facility] Other Encounters Encounter Date Encounter Type Care Provider Facility Start: 11-27-2023 End: 11-27-2023 ambulatory [facility] Work Phone: Start: 11-27-2023 End: 11-27-2023 Patient encounter procedure [facility] Work Phone: Start: 05-26-2023 End: 05-26-2023 ambulatory Marvin Ball Other [facility] Other Start: 05-26-2023 Office outpatient vi sit 25 minutes Marvin Krysta [facility] Start: 05-31-2022 End: 05-31-2022 ambulatory Marvin Ball Other [facility] Other Start: 05-31-2022 Office outpatient vi sit 15 minutes Marvin Cooley [facility] Start: 03-16-2022 End: 03-17-[address] MARVIN COOLEY Facility:[facility] Start: 02-16-2022 End: 02-16-2022 ambulatory MARVIN COOLEY Facility:[facility] Start: 12-16-2021 Encounter for genera l adult medical examination without abnormal findings DR MARVIN COOLEY [facility] Start: 12-15-2021 End: 12-16-[address] MARVIN COOLEY Facility:[facility] Start: 12-15-2021 End: 12-16-2021 Encounter for general adult medical examination without abnormal findings DR MARVIN COOLEY Facility:[facility] Start: 11-12-2021 Adult health examination [place] Krysta Other [facility] Other Start: 08-06-2021 ambulatory Navjot coker MD Work Phone: Colorectal Surgery Comment on above: blood work Malignant neoplasm o f sigmoid colon (HCC) (Primary Dx) Start: 08-06-2021 E-mail encounter fro m caregiver Navjot Shultz MD Work Phone: [facility] Start: 07-28-2021 End: 07-28-2021 ambulatory NAVJOT SHULTZ Facility:[facility] Start: 07-23-2021 Telephone encounter Navjot clark MD Work Phone: Colorectal Surgery Comment on above: Hotel Staff Member - O ther (surveillance) Malignant neoplasm o f sigmoid colon (HCC) (Primary Dx); Malignant neoplasm of rectosigmoid junction (HCC) Start: 03-25-2021 End: 03-25-[address] MARVIN COOLEY Facility:[facility] Procedures Date Procedure Procedure Detail Performing Clinician Start: 12-15-[address] CARDONA IN [place] Comment on above: Performed By: #### P [facility] #### [facility] [address] [place] [address] Dr. Ranjith Logan Start: 07-05-2018 Antibody screen Comment on above: Performed By: #### T SCR30 #### [place] [address] Start: 04-27-2018 Screening for malign ant neoplasm of colon Marvin Cooley Other Depression screening Cliff Cooley Other Plan of Treatment Date Care Activity Detail Author Start: 01-15-2022 End: 05-17-2022 Carcinoembryonic Ag [Mass/volume] in Serum or Plasma CEA BLD Lab Routine Malignant neoplasm of sigmoid colon (HCC) Expected: 01/15/2022, Expires: 05/17/2022 [facility] Work Phone: Comment on above: Expected: 01/15/2022 , Expires: 05/17/2022 Start: 12-16-2021 Influenza vaccination INFLUENZ A (Season Ended) [facility] Start: 07-23-2021 End: 09-22-2021 Carcinoembryonic Ag [Mass/volume] in Serum or Plasma CEA BLD Lab Routine Malignant neoplasm of sigmoid colon (HCC) Expected: 07/23/2021, Expires: 09/22/2021 [facility] Work Phone: Comment on above: Expected: 07/23/2021 , Expires: 09/22/2021 Start: 07-12-2021 DIABETES SCREEN DIABETES SCREEN [facility] Start: 04-17-2021 ADVANCE DIRECTIVE DISCUSSION ADVANCE DIRECTIVE DISCUSSION [facility] Start: 2019 PNEUMOVAX AGE 65 AND OVER WITH 5YR LOOKBACK (#1) PNEUMOVAX AGE 65 AND OVER WITH 5YR LOOKBACK (#1) [facility] Start: 2009 PROSTATE CANCER SCRE ENING DISCUSSION PROSTATE CANCER SCREENING DISCUSSION [facility] Start: 2004 SHINGRIX VACCINE (1 of 2) EDWARDS GRIX VACCINE (1 of 2) [facility] Start: 1999 COLOGUARD (FIT-DNA) COLOGUARD (FIT-D NA) [facility] Start: 1999 Colonoscopy COLONOSCOPY [facility] Start: 1999 COLORECTAL CANCER SCREENING COLORECTAL CANCER SCREENING [facility] Start: [address] COLONOGRAPHY [facility] Start: 1999 FECAL OCCULT BLOOD FECAL OCCULT BLOO D [facility] Start: 1999 SIGMOIDOSCOPY SIGMOIDOSCOPY [facility] Start: 1989 LIPID SCREEN LIPID SCREEN [facility] Start: 1973 Urine microalbumin profile DTAP,TDAP ,TD (1 - Tdap) [facility] Start: 1972 HEPATITIS C SCREENING HEPATITIS C SC WANDA [facility] Start: 1966 Adult depression scr eening assessment DEPRESSION SCREENING [facility] Start: 1959 COVID-19 VACCINE (1) COVID-19 VACCIN E (1) [facility] Comprehensive metabo lic 2000 panel - Serum or Plasma [facility] Microalbumin [Mass/v olume] in Urine [facility] Immunizations Immunization Date Immunization Notes Care Provider Fa cility 01-31-2022 COVID-19 Pfizer (bivalent) Marvin Cooley Other [facility] 01-29-2021 COVID-19 Vaccine Pfi zer - Documentation Purposes Only Marvin Cooley Other [facility] 06-19-2020 COVID-19 Vaccine Pfi zer - Documentation Purposes Only Marvin Cooley Other [facility] 05-29-2020 COVID-19 Vaccine Pfi zer - Documentation Purposes Only Marvin Cooley Other [facility] Payers Date Payer Category Payer Private Health Insurance [id number] 1960 Unknown [id number] 1954 Unknown [id number] 1955 Unknown [id number] 1954 Unknown [id number] Medicare [id number] Private Health Insurance CLI [id number] Unknown Regular Insurance [id number] Social History Date Type Detail Facility Start: 06-28-2018 End: 11-27-2023 Tobacco smoking status NHIS Never smoked tobacco [facility] Start: 06-28-2018 Tobacco use and exposure Smokeless tobacco non-user [facility] Start: 10-17-2019 Alcohol intake Current drinke r of alcohol (finding) [facility] Start: 10-17-2019 Alcohol intake [facility] Start: 06-14-2019 History SDOH Alcohol Frequency 3 [facility] Start: 06-14-2019 History SDOH Alcohol Std Drinks 2 [facility] Start: 06-14-2019 History SDOH Alcohol Binge 1 [facility] Start: 07-05-2018 History SDOH Alcohol Comment 4-5 beers a week [facility] Start: 1955 Sex Assigned At Not on file C [facility] Start: 07-18-2021 End: 07-28-2021 Exposure to SARS-CoV-2 (event) Not sure [facility] Sex Assigned At Sex Assigned At Bir [facility] Other Start: 1955 Sex Assigned At Male F [facility] Medical Equipment Procedure Code Equipment Code Equipment Origin al Text Equipment Identifier Dates Emre Barbosa s [id number] - [id number] Start: 06-25-2019 Start: 12-08-2022 Evaluation note 05-26-2023 Note Date & Type Note Facility 05-26-2023 Evaluation note Encounter Date Diagnosis Assessment Notes May, Primary hypertension (ICD-10 - I10) This patient is instructed to consume a healthy, low-fat, low-salt diet. They are also encouraged to continue exercise to achieve/maintain a normal BMI. Patient is instructed on home BP measurements: - rest for 5 minutes w/o talking.- positioned w/ feet on floor and arm supported.- average best 2/3 readings w/ goal < 135/85.- update office w/ home readings in 2 weeks. Initiate ARB for lowering BP and renal protective effects. May, Type 2 diabetes mellitus with hyperglycemia, without long-term current use of insulin (ICD-10 - E11.65) This patient is following a comprehensive diabetic treatment plan. They are checking their feet daily for calluses and nonhealing ulcers. They are being seen for yearly dilated eye examinations. Goals: SBP less than 130, LDL less than 100, FBS less than 140, A1C less than 7%. They are checking their BS weekly, will which are reviewed at the office visit. Continue regular routine monitoring of A1C, Microalbumin, Dilated eye exam and Foot exam May, Pure hypercholesterolemia (ICD-10 - E78.00) Instructed on diet and exercise with continued statin therapy.Discusse d the beneficial effects of lowering cholesterol in reducing the risk for cerebrovascular and cardiovascular disease. May, Carcinoma of sigmoid colon (ICD-10 - C18.7) UTD w/ surveillance scopes. He denies change in appetite or bowel habits. He denies melena or hematochezia May, Other obesity due to excess calories (ICD-10 - E66.09) This patient has been instructed on a low-fat, high-fiber diet. They are instructed to reduce calories, portion sizes and snacks. It is recommended that they exercise for 30 minutes, 3-5 times weekly. May, Body mass index [BMI] 31.0-31.9, adult (ICD-10 - Z68.31) [facility] Other Evaluation note 05-31-2022 Note Date & Type Note Facility 05-31-2022 Evaluation note Encounter Date Diagnosis Assessment Notes May, Pure hypercholesterolemia (ICD-10 - E78.00) Diet and exercise with continued statin therapy. May, Type 2 diabetes mellitus with hyperglycemia, without long-term current use of insulin (ICD-10 - E11.65) This patient is following a comprehensive diabetic treatment plan. They are checking their feet daily for calluses and nonhealing ulcers. They are being seen for yearly dilated eye examinations. Goals: SBP less than 130, LDL less than 100, FBS less than 140, AC and A1C less than 7%. They are checking their BS daily, will which are reviewed at the office visit. May, Obesity (BMI 30-39.9) (ICD-10 - E66.9) This patient has been instructed on a low-fat, high-fiber diet. They are instructed to reduce calories, portion sizes and snacks. It is recommended that they exercise for 30 minutes, 3-5 times weekly. May, Nocturia (ICD-10 - R35.1) May, Benign prostatic hyperplasia with lower urinary tract symptoms (ICD-10 - N40.1) Yearly VICTORINA and PSA May, History of colon cancer (ICD-10 - Z85.038) Next colonoscopy 2024 UTD w/ [place]vi[place] scopes May, Other This patient is instructed to consume a healthy, low-fat, low-salt diet. They are also encouraged to continue exercise to achieve/mainta in a normal BMI. [facility] Other Progress note 07-23-2021 Note Date & Type Note Facility 07-23-2021 Note HNO ID: [id number] Author: Janae Lezama RN Service: ? Author Type: Registered Nurse Type: Progress Notes Filed: 07/23/2021 3:47 PM Note Text: Call returned to patient. Discussed surveillance x 5 yrs. Pt appreciative of the call. Will obtain lab work. Will forward CT scans to Dr Shultz for approval. [facility] History of Present illness Narrative 07-23-2021 Janae Lezama RN - 07/23/2021 3:42 PM EDT Note Date & Type Note Facility 07-23-2021 History of Presen t illness Narrative Call returned to patient. Discussed surveillance x 5 yrs. Pt appreciative of the call. Will obtain lab work. Will forward CT scans to Dr Shultz for approval. documented in this encounter [facility] Note 07-23-2021 Telephone Encounter - Janae Lezama RN - 07/23/2021 9:45 AM EDT Note Date & Type Note Facility 07-23-2021 Miscellaneous Notes Call placed to patient re: cancer surveillance. No answer, left message and office contact number should wish to discuss documented in this encounter [facility] Evaluation note Note Date & Type Note Facility Evaluation note Diagnosis Malignant neoplasm of sigmoid colon (HCC)- Primary Malignant neoplasm of sigmoid colon Malignant neoplasm of rectosigmoid junction (HCC) Malignant neoplasm of rectosigmoid junction documented in this encounter [facility] Evaluation note Note Date & Type Note Facility Evaluation note Diagnosis Malignant neoplasm of sigmoid colon (HCC)- Primary Malignant neoplasm of sigmoid colon documented in this encounter [facility] Evaluation note Note Date & Type Note Facility Evaluation note Diagnosis Onset Date Benign prostatic hyperplasia with lower urinary tract symptoms acute H/O malignant neoplasm of colon acute Hypercholesterolemia acute Type 2 diabetes mellitus with hyperglycemia acute Medicare annual wellness visit, initial noneactive Screening PSA (prostate specific antigen) noneactive [facility] Work Phone: History general Narrative - Reported Note Date & Type Note Facility History general Narrative - Reported Type Medical History Pure hypercholesterolemia Medical History Type 2 diabetes hilario itus without complications Medical History Benign prostatic hyperplasia Medical History Overweight (BMI 25.0-29.9) Medical History Carcinoma of sigmoid colon Surgical History COLONOSCOPY 01/31/2020 Surgical History umbilical hernia repair 06/2019 Surgical History LAPARO PARTIAL COLECTOMY 9 Hospitalization History see surgical history [facility] Other History general Narrative - Reported Note Date & Type Note Facility History general Narrative - Reported Type Medical History Pure hypercholesterolemia Medical History Type 2 diabetes hilario itus without complications Medical History Benign prostatic hyperplasia Medical History Overweight (BMI 25.0-29.9) Medical History Carcinoma of sigmoid colon Surgical History COLONOSCOPY, repeat 2024 Surgical History umbilical hernia repair 06/2019 Surgical History LAPARO PARTIAL COLECTOMY 9 Hospitalization History see surgical history [facility] Other Summary Purpose Family History No Family History Records FoundNo Family History Records FoundNo Family History Records Found Advance Directives Documents on File Type Date Recorded Patient [employer] Expl anation Advance Directive(s) 06/25/2019 8:40 AM Advance Directive(s) 06/05/2019 3:23 PM Advance Directive(s) 07/10/2018 9:32 AM Advance Directive(s) 06/29/2018 11:21 AM Advance Directive Response Recorded Date/ Time Advance Directives No May 26, 2023 10:13am Procedure Findings Note HNO ID: [id number] Author: Chelly Farris Service: ? Author Type: Nurse Server Developer Type: Anesthesia Procedure Notes Filed: 06/25/2019 10:15 AM Note Text: ANESTHESIOLOGY PROCEDURE NOTE Airway General Information Procedure Start Time/Medication Administration: 06/25/2019 10:00 AM Patient location during procedure: OR Patient identity confirmed: arm band Staffing Anesthesiologist: Keon Fairchild FIRE PREVENTION INSPECTOR: Ana Farris Performed by: FIRE PREVENTION INSPECTOR Indications and Patient Condition Preoxygenated: yes Patient position: sniffing Difficult Mask: No (2 hand; sommers present) Indications for airway management: anesthesia anesthesia circuit Method: asleep Final Airway Details Final airway type: endotracheal airway Final Endotracheal Airway: ETT Cuffed: yes Successful intubation technique: direct laryngoscopy Endotracheal tube insertion site: oral Blade: Millicent Blade size: #4 ETT size (mm): 8.0 Measured from: lips Measurement (cm): 22 Placement verified by: chest auscultation and capnometry C (more content not included)... Note HNO ID: [id number] Author: Ismael Ace Service: General Surgery Author Type: Resident Type: Brief Op Note Filed: 06/25/2019 11:19 AM Note Text: BRIEF OPERATIVE / PROCEDURE NOTE LOG ID: [id number] SURGERY/PROCEDURE DATE: 06/25/2019 INCISION/PROCEDURE START TIME: 10:15 AM INCISION CLOSE/PROCEDURE END TIME: 11:13 AM SURGEON(S)/PROCEDURALIST(S) AND LOAN OFFICER ASSISTANT(S): Surgeon(s) and Role: * Kassidy Ibarra - Primary * Sanam Ace - Resident - Assisting No Additional Staff SURGERY/PROCEDURE(S): Laparoscopic ventral hernia and omental biopsy. ANESTHESIA: General FINDINGS: 8 cm ventral wall defect. Omental biopsy negative for malignancy on frozen. ESTIMATED BLOOD LOSS: 10 mls SPECIMENS: Omental biopsy COMPLICATIONS: None PRE-OP/PRE-PROCEDURE DIAGNOSIS: Ventral hernia POST-OP/POST-PROCEDURE DIAGNOSIS: Same as Preop SIGNATURE: Sanam Ace MD PATIENT NAME: Hector Murry DATE: June 25, 2019 TIME: 11:18 AM PAGER/CONTACT #: [id number] Note HNO ID: [id number] Author: Chelly Helton Service: Colorectal Author Type: Nurse Practitioner Type: Discharge Summary Filed: 07/12/2018 2:52 PM Note Text: Attestation signed by Navjot Shultz at 07/15/2018 7:27 PM Attending Note: Pierson findings confirmed. Patient examined. Discussed with the resident/TRAFFIC SIGNAL MECHANIC/PA and the patient. Plan as outlined. Navjot Shultz MD, FACS, [facility] Colorectal Surgery DISCHARGE SUMMARY PATIENT NAME: Hector Murry ADMISSION DATE: 07/10/2018 DISCHARGE DATE: 07/12/2018 ATTENDING PHYSICIAN: Navjot Shultz Code Status: Not on file Highest Readmission Risk Score: 8 The 30 day readmissions risk score is derived from an internally validated risk model which evaluates patient level characteristics, utilization history, medication orders and lab results up until the day of discharge. Patients wi (more content not included)... Hospital Course Note HNO ID: [id number] Author: Chelly Helton Service: Colorectal Author Type: Nurse Practitioner Type: Discharge Summary Filed: 07/12/2018 2:52 PM Note Text: Attestation signed by Navjot Shultz at 07/15/2018 7:27 PM Attending Note: Pierson findings confirmed. Patient examined. Discussed with the resident/TRAFFIC SIGNAL MECHANIC/PA and the patient. Plan as outlined. Navjot Shultz MD, FACS, [facility] Colorectal Surgery DISCHARGE SUMMARY PATIENT NAME: Hector Murry ADMISSION DATE: 07/10/2018 DISCHARGE DATE: 07/12/2018 ATTENDING PHYSICIAN: Navjot Shultz Code Status: Not on file Highest Readmission Risk Score: 8 The 30 day readmissions risk score is derived from an internally validated risk model which evaluates patient level characteristics, utilization history, medication orders and lab results up until the day of discharge. Patients wi (more content not included)... Chief Complaint and Reason for Visit Chief Complaint Wellness Reason for Visit Benign prostatic hyp erplasia with lower urinary tract symptoms H/O malignant neoplasm of colon Hypercholesterolemia Type 2 diabetes mellitus with hyperglycemia Medicare annual wellness visit, initial Screening PSA (prostate specific antigen) Additional Source Comments (unrecognized sect ion and content) No Status Records FoundNo Status Records FoundNo Status Records Found INFORMATION SOURCE (unrecogn ized section and content) DATE CREATED AUTHOR 06/27/2019 [facility] DATE CREATED AUTHOR AUTHOR'S ORGANIZ ATION 02/18/2022 [facility] DATE CREATED AUTHOR AUTHOR'S ORGANIZ ATION 03/19/2022 [facility] Source Comments (unrecognize d section and content) In the event this informatio n is protected by the Federal Confidentiality of Alcohol and Drug Abuse Patient Records regulations: The Federal rules restrict any use of the information to criminally investigate or prosecute any alcohol or drug abuse patient.[facility] the event this information is protected by the Federal Confidentiality of Alcohol and Drug Abuse Patient Records regulations: The Federal rules restrict any use of the information to criminally investigate or prosecute any alcohol or drug abuse patient.[facility] the event this information is protected by the Federal Confidentiality of Alcohol and Drug Abuse Patient Records regulations: The Federal rules restrict any use of the information to criminally investigate or prosecute any alcohol or drug abuse patient.[facility] the event this information is protected by the Federal Confidentiality of Alcohol and Drug Abuse Patient Records regulations: The Federal rules restrict any use of the information to criminally investigate or prosecute any alcohol or drug abuse patient.[facility] Reason for Visit (unrecogniz ed section and content) Reason Comments Hotel Staff Member - Other surveillance Care Teams (unrecognized sec tion and content) Kiln Setter Relationship Specialty Start Date End Date Marvin Cooley, DO [address] [place] [address] PCP - General Internal Medicine 06/27/18 Kiln Setter Relationship Specialty Start Date End Date Marvin Cooley, DO [address] [place] [address] PCP - General Internal Medicine 06/27/18 Kiln Setter Relationship Specialty Start Date End Date Marvin Cooley, DO [address] [place] [address] PCP - General Internal Medicine 06/27/18 Kiln Setter Relationship Specialty Start Date End Date Marvin Cooley, DO [address] [facility] [address] PCP - General Internal Medicine 06/27/18 Team Status: Active Member Role Status Dates Marvin Cooley DO Primary Care Provider Active Team Status: Inactive Member Role Status Dates Marvin Cooley DO Primary Care Provide r, Attending Provider Active Start: November 27, 2023 End: November 27, 2023 Goals (unrecognized section and content) Goals may be documented in a n alternate section FOR RECORDS PERTAINING TO PATIENTS WHO ARE OR HAVE BEEN ENROLLED IN A CHEMICAL DEPENDENCY/SUBSTANCEABUSE PROGRAM, SOME INFORMATION MAY BE OMITTED. This clinical summary was aggregated from multiple sources. Caution should be exercised in using it in the provision of clinical care. This summary normalizes information from multiple sources, and as a consequence, information in this document may materially change the coding, format and clinical context of patient data. In addition, data may be omitted in some cases. CLINICAL DECISIONS SHOULD BE BASED ON THE PRIMARY CLINICAL RECORDS. [facility] [employer] Funding [facility]. provides no warranty or guarantee of the accuracy or completeness of information in this document.
[2023-12-07 07:25] LABS: Estimated Average Glucose 134 mg/dL; Glycohemoglobin A1C 6.3 % (4.5-6.2)
[2023-12-07 07:28] LABS: Microalbumin Urine Random <1.3 mg/dL (<=30.0)
[2023-12-07 07:31] LABS: Basophils Absolute Auto 0.1 10^3/uL (0.0-0.1); Basophils Percent Auto 1.6 % (0.2-2.0); Eosinophils Absolute Auto 0.3 10^3/uL (0.0-0.7); Eosinophils Percent Auto 4.4 % (0.9-7.0); Hematocrit 44.8 % (42.0-54.0); Hemoglobin 15.1 g/dL (14.0-18.0); Immature Granulocytes Abs Auto 0.02 10^3/uL (0.00-0.03); Immature Granulocytes Pct Auto 0.3 % (0.0-0.5); Lymphocytes Absolute Auto 2.4 10^3/uL (1.2-3.8); Lymphocytes Percent Auto 31.3 % (20.5-60.0); Mean Corpuscular HGB Conc 33.7 g/dL (29.9-35.2); Mean Corpuscular Hemoglobin 30.3 pg (25.9-34.0); Mean Corpuscular Volume 89.8 fL (80.0-94.0); Mean Platelet Volume 10.5 fL (9.5-13.5); Monocytes Absolute Auto 0.7 10^3/uL (0.3-0.8); Monocytes Percent Auto 8.5 % (1.7-12.0); Neutrophils Absolute Auto 4.1 10^3/uL (1.4-6.5); Neutrophils Percent Auto 53.9 % (43.0-75.0); Platelet Count 251 10^3/uL (150-450); Red Blood Count 4.99 10^6/uL (4.70-6.10); Red Cell Distribution Width 12.4 % (11.0-15.0); White Blood Count 7.7 10^3/uL (4.0-11.0)
[2023-12-07 08:07] LABS: Alanine Aminotransferase 29 U/L (16-63); Albumin Globulin Ratio 1.1; Albumin Level 3.9 g/dL (3.4-5.0); Alkaline Phosphatase 63 U/L (46-116); Anion Gap 14.2; Aspartate Amino Transferase 16 U/L (15-37); BUN Creatinine Ratio 12.8; Bilirubin Total 0.9 mg/dL (0.2-1.0); Calcium 9.1 mg/dL (8.5-10.1); Chloride 103 mmol/L (98-107); Chol HDL Ratio 2.3; Cholesterol 177 mg/dL (<=200); Estimated GFR (African America >60 (>=60); Estimated GFR (Non-African Ame >60 (>=60); Globulin 3.4 g/dL; Glucose 141 mg/dL (74-106); HDL Cholesterol 76 mg/dL (40-60); Potassium 3.9 mmol/L (3.5-5.1); Sodium 140 mmol/L (136-145); Total Protein 7.3 g/dL (6.4-8.2); Triglycerides 118 mg/dL (<=150); VLDL CHOLESTEROL 23.6 mg/dL
[2023-12-07 08:16] LABS: Carbon Dioxide 26.7 mmol/L (21.0-32.0)
[2023-12-07 15:12] LABS: Prostate Specific Antigen Scrn 0.28 ng/mL (<=4.00)
== END 2023-12-07 06:53 | disposition home or self-care (01) ==
LOC: LAB 06:55
PROVIDERS: PCP Internal Medicine; Visit Provider Internal Medicine
DX: E11.65 Type 2 diabetes mellitus with hyperglycemia (principal); Z12.5 Encounter for screening for malignant neoplasm of prostate; Z85.038 Personal history of other malignant neoplasm of large intestine; E78.00 Pure hypercholesterolemia, unspecified
CPT/HCPCS: 36415; 80053; 80061; 82043; 83036; 85025; G0103

== ENCOUNTER 2024-05-27 14:55 | Outpatient (RCR) | payer MEDICARE, OTHER, SELFPAY | END 2024-07-04 14:27 | disposition home or self-care (01) | LOC: PT 14:55 | PROVIDERS: PCP Internal Medicine; Visit Provider Physician Assistant | DX: S46.211D Strain of muscle, fascia and tendon of other parts of biceps, right arm, subsequent encounter (principal); M25.521 Pain in right elbow | CPT/HCPCS: 97035; 97110; 97140; 97161 ==

== ENCOUNTER 2024-05-30 07:49 | Outpatient (OUT) | payer MEDICARE, OTHER, SELFPAY ==
--- OUTSIDE RECORDS SUMMARY | 2024-05-30 07:57 | XMS_ITS | CCD ---
Author Organization [facility] Care Team Providers Care Flux Mixer Name Role Phone Marvin Cooley DO Primary Care Provider NAVJOT SHULTZ Referring Unavailable MARVIN COOLEY Primary Care Unavailable KRYSTA, MARVIN Bean Primary [...] Admitting Unavailable BALL, DR MIR Attending Unavailable Krysta, Marvin Unavailable Marvin Cooley DO Primary Care Provider [phone] Geronimo Loaiza DO Attending Provider Geronimo Loaiza Admitting Unavailable Marvin Cooley Primary Care Unavailable Geronimo Loaiza Attending Unavailable Marvin Cooley Primary Care Unavailable Geronimo Loaiza Attending Unavailable Geronimo Loaiza Admitting Unavailable Allergies Allergy Classification Reported Allergen(s) Allergy Type Date of Onset Reaction(s) Facility (6 sources) Penicillin; Translations: [PENICILLIN] Drug Allergy 06-28-2018 [facility] Medications Current Medications Medication Drug Class(es) Dates Sig (Normalized) Sig (Original) atorvastatin 10 mg oral tablet (16 sources) HMG-CoA Reductase Inhibitor Start: 07-14-2023 take 1 tablet by mouth once daily in the evening Atorvastatin 10 mg tablet Active 0 .ROUTE .COMPLEX July 14, 2023 11:55am TAKE 1 TABLET BY MOUTH EVERY DAY IN THE EVENING Start: 07-14-2023 End: 07-14-2023 take 1 tablet by mouth once daily in the evening Atorvastatin 10 mg tablet Discontinued 10 MG PO Every evening July 13, 2023 11:00pm July 14, 2023 11:55am take 1 tablet by jasper th once daily in the evening Atorvastatin Calcium 10 MG TAKE 1 TABLET BY MOUTH EVERY EVENING Active Contour Test - (1 source) Start: 12-08-2022 Contour Test - Use to test home BS qd In Vitro qd for 30 days Nov, Active losartan potassium 50 mg oral tablet (8 sources) Angiotensin 2 Receptor Guy Start: 11-27-2023 take 1 tablet by mouth once daily Losartan 50 mg tablet Active 50 MG PO Daily November 26, 2023 11:00pm Start: 05-26-2023 take 1 tablet by jasper th every twenty-four hours Losartan Potassium 25 MG 1 tablet Orally Once a day for 30 days May, Active metFORMIN hydrochloride 500 mg oral tablet (16 sources) Biguanide Start: 07-14-2023 take 1 tablet by mouth once daily at breakfast Metformin 500 mg tablet Active 0 .ROUTE .COMPLEX July 14, 2023 11:55am TAKE 1 TABLET BY MOUTH EVERY DAY WITH BREAKFAST Start: 07-14-2023 End: 07-14-2023 take 1 tablet by mouth once daily Metformin 500 mg tablet Discontinued 500 MG PO Daily July 13, 2023 11:00pm July 14, 2023 11:55am take 1 tablet by jasper th every [...] Active Problems Problem Classification Problem Date Documented Date Episodic/Chronic Cancer of colon (11 sources) Malignant tumor of sigmoid colon; Translations: [Malignant neoplasm of sigmoid colon] Onset: 06-15-2018 07-12-2018 Chronic Cancer of colon (12 sources) History of malignant neoplasm of colon; Translations: [Personal history of other malignant neoplasm of large intestine] Episodic Comment on above: Dx: 2028- s/p hemico lectomy Cancer of rectum and anus (1 source) Malignant tumor of rectosigmoid junction; Translations: [Malignant neoplasm of rectosigmoid junction] Chronic Diabetes mellitus with complications (13 sources) Type 2 diabetes mellitus; Translations: [Type 2 diabetes mellitus with hyperglycemia] Chronic Diabetes mellitus without complication (6 sources) Type 2 diabetes mellitus without complications; Translations: [Type 2 diabetes mellitus without complication] Onset: 03-16-2022 Chronic Disorders of lipid metabolism (15 sources) Pure hypercholesterolemia , unspecified; Translations: [Pure hypercholesterolemia ] Onset: 03-19-2022 Chronic Essential hypertension (10 sources) Essential hypertension; Translations: [Essential (primary) hypertension] Chronic Genitourinary symptoms and ill-defined conditions (1 source) Nocturia Episodic Hyperplasia of prostate (15 sources) Benign prostatic hyperplasia; Translations: [Benign prostatic hyperplasia without lower urinary tract symptoms] Chronic Other and unspecified benign neoplasm (2 sources) History of polyp of colon; Translations: [Personal history of colonic polyps] Episodic Other non-traumatic joint disorders (5 sources) Pain in elbow; Translations: [Pain in right elbow] 05-06-2024 Episodic Other non-traumatic joint disorders (6 sources) Pain in right elbow; Translations: [Pain in joint, upper arm] Onset: 05-07-2024 05-02-2024 Episodic Other nutritional; endocrine; and metabolic disorders [...] neoplasms of prostate] Onset: 12-16-2021 11-27-2023 Episodic Sprains and strains (19 sources) Tear of distal tendon of biceps brachii; Translations: [Strain of muscle, fascia and tendon of other parts of biceps, unspecified arm, initial encounter] Onset: 05-08-2024 05-02-2024 Episodic Unclassified (3 sources) CONTACT W/AND (SUSP) [...] Test Name Value Interpretation Reference Range Facility MR elbow RT wo conon 025 MR elbow RT wo con [facility] [place] [address] [place] [address] MRI Report Signed Patient: Hector Murry MR#: [id number] : 1955 Acct:[id number] Age/Sex: 69 / M ADM Date: 05/08/24 Loc: [facility] Room: Type: [facility] Attending Dr: Geronimo Loaiza DO Copies to: Geronimo Loaiza DO Ordering Provider: Geronimo Loaiza DO Date of Service: 05/08/24 MR/MR elbow RT wo con: S46.211A - Strain of muscle, fascia and tendon of other p... MR elbow RT wo con 05/08/2024 8:52 AM SIGNS AND SYMPTOMS: Popping sensation in right elbow pain PROTOCOL: Multiplanar multisequence MR images of the right elbow without IV contrast COMPARISON: 05/07/2024 FINDINGS: Joint fluid: No joint effusion.. Medial: Ulnar collateral ligament: Intact. Common flexor tendon: Intact. Medial epicondyle: Intact. Lateral: Radial collateral ligament: Intact. Lateral ulnar collateral ligament: Intact. Common extensor tendon: Intact. Lateral epicondyle: Intact. Posterior: Triceps: Intact. Olecranon: Normal. Anterior: Biceps: There is a partial-thickness tear of the biceps tendon emanating from the musculotendinous junction involving approximately 50% of the tendon. There is an adjacent accompanying hematoma with fluid along the tendon sheath.. Brachialis: Intact. Bicipitoradial bursa: Normal. Articular: Radio-capitellar joint: Intact Ulno-humeral joint: Intact Proximal radio-ulnar joint: Intact Bones (other than subarticular marrow): Normal Muscles: Otherwise within normal limits. Vessels: Normal. Nerves: Cubital tunnel normal, retinaculum intact. Anconeus epitrochlearis muscle present. Intra-articular bodies: None. MR/MR elbow RT wo con IMPRESSION: There is a partial-thickness tear of the biceps tendon emanating from the musculotendinous junction involving approximately 50% of the tendon. There is an adjacent accompanying hematoma with fluid along the tendon sheath. Impression dictated by: Arvind Veliz M.D.05/08/2024 3:17 PM Dictation Location: [place] [address] Transcribed By: [facility] 05/08/24 1517 Dictated By: Arvind Veliz II, MD 05/08/24 1503 Signed By: 05/08/24 1517 Normal [facility] Magnetic resonance imaging r eportOrdered By: Arvind Veliz on 05-08-2024 Study report [facility] [place] [address] [place] [address] MRI Report Signed Patient: Hector Murry MR#: [id number] : 1955 Acct:[id number] Age/Sex: 69 / M ADM Date: 5 Loc: [facility] Room: Type: [facility] Attending Dr: Geronimo Loaiza DO Copies to: Geronimo Loaiza DO~ Ordering Provider: Geronimo Loaiza DO Date of Service: 05/08/24 MR/MR elbow RT wo con: S46.211A - Strain of muscle, fascia and tendon of other p... MR elbow RT wo con 05/08/2024 8:52 AM SIGNS AND SYMPTOMS: Popping sensation in right elbow pain PROTOCOL: Multiplanar multisequence MR images of the right elbow without IV contrast COMPARISON: 05/07/2024 FINDINGS: Joint fluid: No joint effusion.. Medial: Ulnar collateral ligament: Intact. Common flexor tendon: Intact. Medial epicondyle: Intact. Lateral: Radial collateral ligament: Intact. Lateral ulnar collateral ligament: Intact. Common extensor tendon: Intact. Lateral epicondyle: Intact. Posterior: Triceps: Intact. Olecranon: Normal. Anterior: Biceps: There is a partial-thickness tear of the biceps tendon emanating from the musculotendinous junction involving approximately 50% of the tendon. There is an adjacent accompanying hematoma with fluid along the tendon sheath.. Brachialis: Intact. Bicipitoradial bursa: Normal. Articular: Radio-capitellar joint: Intact Ulno-humeral joint: Intact Proximal radio-ulnar joint: Intact Bones (other than subarticular marrow): Normal Muscles: Otherwise within normal limits. Vessels: Normal. Nerves: Cubital tunnel normal, retinaculum intact. Anconeus epitrochlearis muscle present. Intra-articular bodies: None. MR/MR elbow RT wo con IMPRESSION: There is a partial-thickness tear of the biceps tendon emanating from the musculotendinous junction involving approximately 50% of the tendon. There is an adjacent accompanying hematoma with fluid along the tendon sheath. Impression dictated by: Arvind Veliz M.D.05/08/2024 3:17 PM Dictation Location: [place] [address] Transcribed By: ARNOLD 05/08/24 1517 Dictated By: Arvind Veliz II, MD 05/08/24 1503 Signed By: 05/08/24 1517 [facility] Work Phone: X-ray reportOrdered By: Gopi De La Vega on 05-07-2024 Study report [facility] [address] [place] [address] XRay Report Signed Patient: Hector Murry MR#: [id number] : 1955 Acct:[id number] Age/Sex: 69 / M ADM Date: 5 Loc: [facility] Room: Type: [facility] Attending Dr: Geronimo Loaiza DO Copies to: Geronimo Loaiza DO~ Ordering Provider: Geronimo Loaiza DO Date of Service: 05/07/24 XR/XR elbow RT min 3V*: M25.521 - Pain in right elbow RIGHT ELBOW - 4 views CLINICAL HISTORY: Right elbow pain for 2 days. COMPARISON: None FINDINGS: No joint effusion. Olecranon spurring. There appears to be sclerosis involvingthe supracondylar region suggestive of healing fracture. XR/XR elbow RT min 3V* IMPRESSION: SCLEROSIS INVOLVING THE SUPRACONDYLAR REGION SUGGESTIVE OF HEALING FRACTURE. OLECRANON SPURRING. Impression dictated by: Navjot De La Vega Jr., D.O.05/07/2024 10:21 AM Dictation Location: [place] [address] Transcribed By: [facility] 05/07/24 1021 Dictated By: Navjot De La Vega Jr, DO 05/07/24 1019 Signed By: 05/07/24 1021 [facility] XR elbow RT min 3V*on 2024 XR elbow RT min 3V* [facility] [address] [place] [address] XRay Report Signed Patient: Hector Murry MR#: [id number] : 1955 Acct:[id number] Age/Sex: 69 / M ADM Date: 05/07/24 Loc: [facility] Room: Type: [facility] Attending Dr: Geronimo Loaiza DO Copies to: Geronimo Loaiza DO Ordering Provider: Geronimo Loaiza DO Date of Service: 05/07/24 XR/XR elbow RT min 3V*: M25.521 - Pain in right elbow RIGHT ELBOW - 4 views CLINICAL HISTORY: Right elbow pain for 2 days. COMPARISON: None FINDINGS: No joint effusion. Olecranon spurring. There appears to be sclerosis involving the supracondylar region suggestive of healing fracture. XR/XR elbow RT min 3V* IMPRESSION: SCLEROSIS INVOLVING THE SUPRACONDYLAR REGION SUGGESTIVE OF HEALING FRACTURE. OLECRANON SPURRING. Impression dictated by: Navjot De La Vega Jr., Rickey05/07/2024 10:21 AM Dictation Location: [place] [address] Transcribed By: [facility] 05/07/24 1021 Dictated By: Navjot De La Vega Jr, DO 05/07/24 1019 Signed By: 05/07/24 1021 Normal [facility] DIRECT LDLon 03-16-2022 Cholesterol in LDL [Mass/Vol] 107 mg/dL Normal [facility] Comment on above: Performed By: #### A LT, DLDL #### [facility] [address] [place] [address] [address] Ranjith Logan DLDL NORMAL SEE BELOW Normal [facility] Comment on above: Result Comment: <100 mg/dl OPTIMAL 100 - 129 mg/dl NEAR OR ABOVE OPTIMAL 130 - 159 mg/dl BORDERLINE HIGH 160 - 189 mg/dl HIGH >190 mg/dl VERY HIGH Performed By: #### A LT, DLDL #### [facility] [address] [place] [address] [address] Ranjith Logan GLYCOHEMOGLOBIN A1Con 2021 ADA RECOMMENDATION SEE BELOW Normal [facility] Comment on above: Result Comment: ADA RECOMMENDED LIMIT 4.0 - 6.0 ADA THERAPEUTIC TARGET < 7.0 ACTION SUGGESTED > 7.0 Performed By: #### A 1C #### [facility] [address] [place] [address] [address] Ranjith Logan Glucose [Mass/Vol] 146 mg/dL Normal [facility] Comment on above: Performed By: #### A 1C #### [facility] [address] [place] [address] [address] Ranjith Logan HbA1c (Bld) [Mass fraction] 6.7 % Critically high 4.5-6.2 [facility] Comment on above: Performed By: #### A 1C #### [facility] [address] [place] [address] [address] Ranjith Logan SGPTon 03-16-2022 ALT [Catalytic activity/Vol] 51 U/L Normal 16-63 [facility] Comment on above: Performed By: #### A LT, DLDL #### [facility] [address] [place] [address] Dr. Ranjith Logan CEA SerPl-mCncon 02-16-2022 Carcinoembryonic Ag [Mass/Vol] 3.1 ng/mL High <=2.9 [facility] Comment on above: Order Comment: Speci men Type: BLOOD SPECIMEN Ordering Facility: [facility] Address: [address] [place] [address] Result Comment: Carc inoembryonic antigen test is used as an aid in monitoring response to treatment or recurrence in patients with established colorectal, breast, lung, prostatic, pancreatic, and ovarian carcinomas. Clinical correlation is required. The Carcinoembryonic antigen test was performed using the Ameriprimeel DXI paramagnetic particle chemiluminescent immunoassay method. Results obtained with different assay methods or kits cannot be used interchangeably. Performed By: #### 2 [id number] #### [facility] CLIA [id number] [address] [place] [address] [place] CBC AUTO DIFFon 12-15-2021 BASO # 0.1 103/ul Normal 0.0-0.1 [facility] Comment on above: Performed By: #### C BC #### [facility] [address] [place] [address] Dr. Ranjith Logan Basophils/100 WBC (Bld) 1.6 % Normal 0.2-2.0 [facility] Comment on above: Performed By: #### C BC #### [facility] [address] [place] [address] Dr. Ranjith Logan EO # 0.4 103/ul Normal 0.0-0.7 [facility] Comment on above: Performed By: #### C BC #### [facility] [address] [place] [address] Dr. Ranjith Logan Eosinophils/100 WBC (Bld) 5.3 % Normal 0.9-7.0 [facility] Comment on above: Performed By: #### C BC #### [facility] [address] [place] [address] Dr. Ranjith Logan Erythrocyte distribution width (RBC) [Ratio] 13.1 % Normal 11.0-15.0 [facility] Comment on above: Performed By: #### C BC #### [facility] [address] [place] [address] Dr. Ranjith Logan Hematocrit (Bld) [Volume fraction] 43.0 % Normal 42.0-54.0 [facility] Comment on above: Performed By: #### C BC #### [facility] [address] [place] [address] Dr. Ranjith Logan Hemoglobin (Bld) [Mass/Vol] 14.5 g/dL Normal 14.0-18.0 [facility] Comment on above: Performed By: #### C BC #### [facility] [address] [place] [address] Dr. Ranjith Logan IG # 0.02 10e3/ul Normal 0.00-0.03 [facility] Comment on above: Performed By: #### C BC #### [facility] [address] [place] [address] Dr. Ranjith Logan IG % 0.3 % Normal 0.0-0.5 [facility] Comment on above: Performed By: #### C BC #### [facility] [address] [place] [address] Dr. Ranjith Logan LYMPH # 2.3 103/ul Normal 1.2-3.8 [facility] Comment on above: Performed By: #### C BC #### [facility] [address] [place] [address] Dr. Ranjith Logan Lymphocytes/100 WBC (Bld) 33.3 % Normal 20.5-60.0 [facility] Comment on above: Performed By: #### C BC #### [facility] [address] [place] [address] Dr. Ranjith Logan MANUAL DIFF REQ NO Normal [facility] Comment on above: Performed By: #### C BC #### [facility] [address] [place] [address] Dr. Ranjith Logan MCH (RBC) [Entitic mass] 30.5 pg Normal 25.9-34.0 [facility] Comment on above: Performed By: #### C BC #### [facility] [address] [place] [address] Dr. Ranjith Logan MCHC (RBC) [Mass/Vol] 33.7 g/dL Normal 29.9-35.2 [facility] Comment on above: Performed By: #### C BC #### [facility] [address] [place] [address] Dr. Ranjith Logan MCV (RBC) [Entitic vol] 90.3 fL Normal 80.0-94.0 [facility] Comment on above: Performed By: #### C BC #### [facility] [address] [place] [address] Dr. Ranjith Logan MONO # 0.6 103/ul Normal 0.3-0.8 [facility] Comment on above: Performed By: #### C BC #### [facility] [address] [place] [address] Dr. Ranjith Logan Monocytes/100 WBC (Bld) 8.6 % Normal 1.7-12.0 [facility] Comment on above: Performed By: #### C BC #### [facility] [address] [place] [address] Dr. Ranjith Logan NEUT # 3.4 103/ul Normal 1.4-6.5 [facility] Comment on above: Performed By: #### C BC #### [facility] [address] [place] [address] Dr. Ranjith Logan Neutrophils/100 WBC (Bld) 50.9 % Normal 43.0-75.0 [facility] Comment on above: Performed By: #### C BC #### [facility] [address] [place] [address] Dr. Ranjith Logan Platelet mean volume (Bld) [Entitic vol] 10.0 fL Normal 9.5-13.5 [facility] Comment on above: Performed By: #### C BC #### [facility] [address] [place] [address] Dr. Ranjith Logan PLT 245 103/ul Normal 150-450 [facility] Comment on above: Performed By: #### C BC #### [facility] [address] [place] [address] [address] Ranjith Logan RBC 4.76 106/ul Normal 4.70-6.10 [facility] Comment on above: Performed By: #### C BC #### [facility] [address] [place] [address] [address] Ranjith Logan WBC 6.8 103/ul Normal 4.0-11.0 [facility] Comment on above: Performed By: #### C BC #### [facility] [address] [place] [address] Dr. Ranjith Logan GLYCOHEMOGLOBIN A1Con 2021 ADA RECOMMENDATION SEE BELOW Normal [facility] Comment on above: Result Comment: ADA RECOMMENDED LIMIT 4.0 - 6.0 ADA THERAPEUTIC TARGET < 7.0 ACTION SUGGESTED > 7.0 Performed By: #### A 1C #### [facility] [address] [place] [address] Dr. Ranjith Logan Glucose [Mass/Vol] 140 mg/dL Normal [facility] Comment on above: Performed By: #### A 1C #### [facility] [address] [place] [address] Dr. Ranjith Logan HbA1c (Bld) [Mass fraction] 6.5 % Critically high 4.5-6.2 [facility] Comment on above: Performed By: #### A 1C #### [facility] [address] [place] [address] Dr. Ranjith Logan LIPID PROFILEon 12-15-2021 CHOL-HDL RATIO NORM SEE BELOW Normal [facility] Comment on above: Result Comment: 3.3 - 4.4 LOW RISK 4.4 - 7.1 AVERAGE RISK 7.1 - 11.0 MODERATE RISK >11.0 HIGH RISK Performed By: #### L IPID, CMP #### [facility] [address] [place] [address] Dr. Ranjith Logan Cholesterol [Mass/Vol] 214 mg/dL Critically high <=200 [facility] Comment on above: Performed By: #### L IPID, CMP #### [facility] [address] [place] [address] [address] Ranjith Logan Cholesterol in HDL [Mass/Vol] 60 mg/dL Normal 40-60 [facility] Comment on above: Performed By: #### L IPID, CMP #### [facility] [address] [place] [address] [address] Ranjith Logan Cholesterol in LDL [Mass/Vol] 133.6 mg/dL Normal [facility] Comment on above: Performed By: #### L IPID, CMP #### [facility] [address] [place] [address] [address] Ranjith Logan Cholesterol.total/Ch olesterol in HDL [Mass ratio] 3.6 {ratio} Normal [facility] Comment on above: Performed By: #### L IPID, CMP #### [facility] [address] [place] [address] Dr. Ranjith Logan HDL NORMAL > or = 60 mg/dl - LO W CARDIOVASCULAR RISK <40 mg/dl - HIGH CARDIOVASCULAR RISK Normal [facility] Comment on above: Performed By: #### L IPID, CMP #### [facility] [address] [place] [address] [address] Ranjith Logan LDL CALC NORMAL SEE BELOW Normal [facility] Comment on above: Result Comment: <100 mg/dl OPTIMAL 100 - 129 mg/dl NEAR OR ABOVE OPTIMAL 130 - 159 mg/dl BORDERLINE HIGH 160 - 189 mg/dl HIGH >190 mg/dl VERY HIGH Performed By: #### L IPID, CMP #### [facility] [address] [place] [address] [address] Ranjith Logan Triglyceride [Mass/Vol] 102 mg/dL Normal <=150 [facility] Comment on above: Performed By: #### L IPID, CMP #### [facility] [address] [place] [address] Dr. Ranjith Logan VLDL CALC 20.4 mg/dL Normal [facility] Comment on above: Performed By: #### L IPID, CMP #### [facility] [address] [place] [address] [address] Ranjith Logan PROF 14(COMP METB)on 022 Albumin [Mass/Vol] 3.6 g/dL Normal 3.4-5.0 [facility] Comment on above: Performed By: #### L IPID, CMP #### [facility] [address] [place] [address] [address] Ranjith Logan Albumin/Globulin [Mass ratio] 1.0 {ratio} Normal [facility] Comment on above: Performed By: #### L IPID, CMP #### [facility] [address] [address] [address] Ranjith Logan ALP [Catalytic activity/Vol] 68 U/L Normal 46-116 [facility] Comment on above: Performed By: #### L IPID, CMP #### [facility] [address] [place] [address] [address] Ranjith Logan ALT [Catalytic activity/Vol] 39 U/L Normal 16-63 [facility] Comment on above: Performed By: #### L IPID, CMP #### [facility] [address] [place] [address] [address] Ranjith Logan Anion gap [Moles/Vol] 9.8 mmol/L Normal [facility] Comment on above: Performed By: #### L IPID, CMP #### [facility] [address] [place] [address] [address] Ranjith Logan AST [Catalytic activity/Vol] 20 U/L Normal 15-37 [facility] Comment on above: Performed By: #### L IPID, CMP #### [facility] [address] [place] [address] [address] Ranjith Logan Bilirubin [Mass/Vol] 0.7 mg/dL Normal 0.2-1.0 [facility] Comment on above: Performed By: #### L IPID, CMP #### [facility] [address] [place] [address] [address] Ranjith Logan Calcium [Mass/Vol] 8.8 mg/dL Normal 8.5-10.1 [facility] Comment on above: Performed By: #### L IPID, CMP #### [facility] [address] [address] [address] Ranjith Logan Chloride [Moles/Vol] 103 mmol/L Normal 98-107 [facility] Comment on above: Performed By: #### L IPID, CMP #### [facility] [address] [place] [address] Dr. Ranjith Logan CO2 [Moles/Vol] 31.5 mmol/L Normal 21.0-32.0 [facility] Comment on above: Performed By: #### L IPID, CMP #### [facility] [address] [place] [address] Dr. Ranjith Logan Creatinine [Mass/Vol] 0.94 mg/dL Normal 0.70-1.30 [facility] Comment on above: Performed By: #### L IPID, CMP #### [facility] [address] [place] [address] Dr. Ranjith Logan EGFR-AF [place]LANDER >60 Normal >=60 [facility] Comment on above: Performed By: #### L IPID, CMP #### [facility] [address] [place] [address] Dr. Ranjith Logan EGFR-NON AF [place]ER >60 Normal >=60 [facility] Comment on above: Performed By: #### L IPID, CMP #### [facility] [address] [place] [address] Dr. Ranjith Logan Globulin (S) [Mass/Vol] 3.7 g/dL Normal [facility] Comment on above: Performed By: #### L IPID, CMP #### [facility] [address] [place] [address] Dr. Ranjith Logan Glucose [Mass/Vol] 147 mg/dL Critically high 74-106 [facility] Comment on above: Performed By: #### L IPID, CMP #### [facility] [address] [place] [address] Dr. Ranjith Logan Potassium [Moles/Vol] 4.3 mmol/L Normal 3.5-5.1 [facility] Comment on above: Performed By: #### L IPID, CMP #### [facility] [address] [address] [address] Ranjith Logan Protein [Mass/Vol] 7.3 g/dL Normal 6.4-8.2 [facility] Comment on above: Performed By: #### L IPID, CMP #### [facility] [address] [address] [address] Ranjith Logan Sodium [Moles/Vol] 140 mmol/L Normal 136-145 [facility] Comment on above: Performed By: #### L IPID, CMP #### [facility] [address] [place] [address] Dr. Ranjith Logan Urea nitrogen [Mass/Vol] 8.0 mg/dL Normal 7.0-18.0 [facility] Comment on above: Performed By: #### L IPID, CMP #### [facility] [address] [address] [address] Ranjith Logan Urea nitrogen/Creatinine [Mass ratio] 8.5 mg/mg Normal [facility] Comment on above: Performed By: #### L IPID, CMP #### [facility] [address] [address] [address] Ranjith Logan [facility] Carcinoembryonic Ag [Mass/Vol] 3.5 ng/mL High <=2.9 [facility] Comment on above: Order Comment: Speci men Type: BLOOD SPECIMEN Ordering Facility: [facility] Address: [address] [place] [address] Result Comment: Carc inoembryonic antigen test is used as an aid in monitoring response to treatment or recurrence in patients with established colorectal, breast, lung, prostatic, pancreatic, and ovarian carcinomas. Clinical correlation is required. The Narcisa Dundee DXI 600/800 is used. Results obtained with different assay, methods or kits cannot be used interchangeably Performed By: #### 2 039-6 #### [facility] CLIA [id number] [address] [place] [address] [place] CNPChristen 07-23-2021 CNPN Telephone ([facility]) -------- HECTOR MURRY ([id number]) 1955 M Date Time Provider Department 07/23/21 NAVJOT SHULTZ [facility] During your visit today, we recorded the following information about you: Janae Lezama RN 07/23/2021 9:45 AM Signed Call placed to patient re: cancer surveillance. No answer, left message and office contact number should wish to discuss Kaylene Romero ADM 07/23/2021 3:37 PM Signed Patient returned nurse call. 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 Normal [facility] Covid-19 PCR ([facility])on SARS-CoV-2 (COVID-19) RNA PANFILO+probe Ql (Unsp spec) Not detected Normal NOT DETECTED [facility] Comment on above: Result Comment: This test is not yet approved or cleared by the [place] FDA. When there are no FDA-approved or cleared tests available, and other criteria are met, FDA can make tests available under an emergency access mechanism called an Emergency Use Authorization (EUA). The EUA for this test is supported by the [place] and Human Service's (HHS's) declaration [...] consistent with SARS-CoV-2. Performed By: #### C [facility] #### [facility] [address] [place] [address] Dr. Yilan Logan ANES POSTPROC EVALon 020 ANES POSTPROC EVAL HNO ID: [id number] Author: Keon Fairchild Service: ? Author Type: [...] June 25, 2019 TIME: 12:38 PM CSN: [id number] [facility] ANES PRE-OPon 06-25-2019 ANES PRE-OP HNO ID: [id number] Author: Keon Fairchild Service: ? Author Type: [...] June 25, 2019 TIME: 9:25 AM CSN: [id number] [facility] HISTORY PHYSICALon 0 HISTORY PHYSICAL HNO ID: [id number] Author: Sanam Ace Service: General Surgery Author [...] June 25, 2019 TIME: 9:39 AM PAGER: [phone] Normal [facility] OPERATIVE NOon 06-25-2019 OPERATIVE NO HNO ID: [id number] Author: Kassidy Ibarra Service: General Surgery Author Type: Physician Type: Operative Report Filed: 06/26/2019 8:46 AM Note Text: [facility] - Operative Report HECTOR MURRY : 1955 AGE: 64. SEX: M PATIENT TYPE: A HOSP [facility] [place] [facility] [place] [facility] LOCATION: [facility] ATTENDING PHYSICIAN: Kassidy Ibarra M.D. CSN NUMBER: [id number] DATE OF SURGERY/PROCEDURE: 06/25/2019 INCISION/PROCEDURE START TIME: 1015 hours. INCISION CLOSE/PROCEDURE END TIME: 1113 hours. PREOPERATIVE DIAGNOSIS: Incisional hernia. POSTOPERATIVE DIAGNOSIS: Incisional hernia plus omental implant. SURGEON: Kassidy Ibarra M.D. MIXING TANK OPERATOR: Dr. Sanam Ace SURGERY/PROCEDURE: Laparoscopic repair of [...] through the entire operation. Kassidy Ibarra M.D. DA:[id number] /[id number] [facility] PT EDon 06-25-2019 PT ED HNO ID: [id number] Author: Carolina HerringRn) MARGARET Norris Service: Nursing [...] PROVIDED TO PATIENT: Post op discharge instructions. [facility] PT ED HNO ID: [id number] Author: Chacha HerringRnNavarro Cortez RN Service: Nursing Author Type: Registered Nurse Type: [...] None Electronically Signed By: Chacha Cortez RN [facility] SURGICAL PATHOLOGYon 020 SURGICAL PATHOLOGY Specimen originated from [facility] Specimen #: [id number] Submitting Physician: Kassidy Ibarra M.D. __ FINAL DIAGNOSIS Omental implant, excision - Fat necrosis, chronic inflammation, and focal dystrophic calcifications. - No malignancy identified. JOSE ELIASB/[place]/vasu 06/27/2019 Mason Pereira M.D. (Electronic Signature) SPECIMEN SUBMITTED A: OMENTAL IMPLANT CLINICAL DATA INCISIONAL HERNIA; HISTORY OF COLON CANCER; LAPAROSCOPIC VENTRAL HERNIA REPAIR INTRAOPERATIVE CONSULT DIAGNOSIS FSA1: Negative for carcinoma. (Dr. Greer) Intraoperative diagnosis performed at [facility], [address] [place] [address] GROSS DESCRIPTION A. Received fresh for frozen section designated omental implant is a woody yellow nodule that measures 1.5 x 1 x 1 cm. Sectioning the nodule reveals necrotic cut surfaces. The specimen is entirely as follows: A1 frozen section A2-A3 remainder of specimen. WE/rw 06/25/2019 Gross examination performed at [facility], [address] [address] Date of Report: 06/27/2019 Date of Procedure: 06/25/2019 Date of Receipt: 06/25/2019 Submitted by: Kassidy Ibarra M.D. Location: [facility] Diagnostic interpretation performed at [facility], [address] [place] [address]. CLIA Number: [id number] [facility] NURSING PROGon 06-19-2019 NURSING PROG HNO ID: [id number] Author: Sola (Rn) MARGARET Mix Service: General Surgery Author Type: Registered Nurse Type: Nursing Progress Note Filed: 06/19/2019 9:08 AM Note Text: PACC Nurse Progress Note History AND Physical: PACC Visit Date: 06-14-19 Original HANDP Date: N/A ED visit Date: N/A Outside HANDP Scanned Date: N/A Labs Within Last 6 Months: N/A Imaging Within Last 12 Months: CT Scan 05-20-19 Results in [facility] Cardiac Testing: EKG in last 12 Months: Yes: Date: 07-05-18, Comment: Results scanned in [facility] Last Menstrual Period: LMP Date: N/A Postmenopausal >1yr: N/A, S/P Hysterectomy: N/A BMI Percentile (PEDS): N/A Risk Assessment: N/A Anesthesia Review: N/A Narrative: N/A Pre-op Considerations: N/A Chart Check: COMPLETED Sola Mix RN June 19, 2019 9:06 AM [facility] HOSPon 05-22-2019 HOSP Patient:Anastasiya Murry MRN: [...] entered within the past 30 days Normal [facility] Basic Metabolic Panlon 07-12 Anion gap [Moles/Vol] 13 mmol/L Normal 9-18 [facility] Comment on above: Performed By: #### C BCDIF, BMP ####[place] [phone] Calcium [Mass/Vol] 8.7 mg/dL Normal 8.5-10.5 [facility] Comment on above: Performed By: #### C BCDIF, BMP ####[place] [phone] Chloride [Moles/Vol] 105 mmol/L Normal 98-110 [facility] Comment on above: Result Comment: Revi ewed Performed By: #### C BCDIF, BMP ####[place] [phone] CO2 [Moles/Vol] 24 mmol/L Normal 23-32 [facility] Comment on above: Performed By: #### C BCDIF, BMP ####[place] [phone] Creatinine [Mass/Vol] 0.69 mg/dL Low 0.70-1.40 [facility] Comment on above: Performed By: #### C BCDIF, BMP ####[place] [phone] eGFR- Amer. >60 Normal >60 [facility] Comment on above: Performed By: #### C BCDIF, BMP ####[place] [phone] GFR/1.73 sq M predicted among non-blacks MDRD (S/P/Bld) [Vol rate/Area] mL/min/{1.73_m2} Normal >60 [facility] Comment on above: Performed By: #### C BCDIF, BMP ####[place] [phone] Glucose [Mass/Vol] 146 mg/dL High 65-100 [facility] Comment on above: Performed By: #### C BCDIF, BMP ####[place] [phone] Potassium [Moles/Vol] 4.0 mmol/L Normal 3.5-5.0 [facility] Comment on above: Performed By: #### C BCDIF, BMP ####[place] [phone] Sodium [Moles/Vol] 142 mmol/L Normal 135-146 [facility] Comment on above: Result Comment: Revi ewed Performed By: #### C BCDIF, BMP ####[place] [phone] Urea nitrogen [Mass/Vol] 6 mg/dL Low 10-25 [facility] Comment on above: Performed By: #### C BCDIF, BMP ####[place] [phone] CBC and Differentialon 07-12 Abs Baso 0.03 k/uL Normal <0.11 [facility] Comment on above: Performed By: #### C BCDIF, BMP ####[place] [phone] Abs Kenton 0.87 k/uL High <0.87 [facility] Comment on above: Performed By: #### C BCDIF, BMP ####[place] [phone] Abs Neut 7.20 k/uL Normal 1.45-7.50 [facility] Comment on above: Performed By: #### C BCDIF, BMP ####[place] [phone] Basophils/100 WBC (Bld) 0.3 % Normal [facility] Comment on above: Performed By: #### C BCDIF, BMP ####[place] [phone] DTYPE Auto Diff Normal [facility] Comment on above: Performed By: #### C BCDIF, BMP ####[place] [phone] Eosinophils (Bld) [#/Vol] 0.14 10*3/uL Normal <0.46 [facility] Comment on above: Performed By: #### C BCDIF, BMP ####[place] [phone] Eosinophils/100 WBC (Bld) 1.4 % Normal [facility] Comment on above: Performed By: #### C BCDIF, BMP ####[place] [phone] Erythrocyte distribution width (RBC) [Ratio] 14.8 % Normal 11.5-15.0 [facility] Comment on above: Performed By: #### C BCDIF, BMP ####[place] [phone] Hematocrit (Bld) [Volume fraction] 36.8 % Low 39.0-51.0 [facility] Comment on above: Performed By: #### C BCDIF, BMP ####[place] [phone] Hemoglobin (Bld) [Mass/Vol] 11.8 g/dL Low 13.0-17.0 [facility] Comment on above: Performed By: #### C BCDIF, BMP ####[place] [phone] Lymphocytes (Bld) [#/Vol] 1.48 10*3/uL Normal 1.00-4.00 [facility] Comment on above: Performed By: #### C BCDIF, BMP ####[place] [phone] Lymphocytes/100 WBC (Bld) 15.2 % Normal [facility] Comment on above: Performed By: #### C BCDIF, BMP ####[place] [phone] MCH (RBC) [Entitic mass] 27.4 pG Normal 26.0-34.0 [facility] Comment on above: Performed By: #### C BCDIF, BMP ####[place] [phone] MCHC (RBC) [Mass/Vol] 32.1 g/dL Normal 30.5-36.0 [facility] Comment on above: Performed By: #### C BCDIF, BMP ####[place] [phone] MCV (RBC) [Entitic vol] 85.4 fL Normal 80.0-100.0 [facility] Comment on above: Performed By: #### C BCDIF, BMP ####[place] [phone] Monocytes/100 WBC (Bld) 9.0 % Normal [facility] Comment on above: Performed By: #### C BCDIF, BMP ####[place] [phone] Neutrophils/100 WBC (Bld) 74.1 % Normal [facility] Comment on above: Performed By: #### C BCDIF, BMP ####[place] [phone] Platelet mean volume (Bld) [Entitic vol] 10.7 fL Normal 9.0-12.7 [facility] Comment on above: Performed By: #### C BCDIF, BMP ####[place] [phone] Platelets (Bld) [#/Vol] 280 10*3/uL Normal 150-400 [facility] Comment on above: Performed By: #### C BCDIF, BMP ####[facility] [place], [place] [phone] RBC (Bld) [#/Vol] 4.31 10*6/uL Normal 4.20-6.00 [facility] Comment on above: Performed By: #### C BCDIF, BMP ####[facility] [place] [phone] WBC (Bld) [#/Vol] 9.72 10*3/uL Normal 3.70-11.00 [facility] Comment on above: Performed By: #### C BCDIF, BMP ####[place] [phone] [place] [phone] NURSING PROGon 07-12-2018 NURSING PROG HNO ID: [id number] Author: Radha (Rn) MARGARET Frost Service: ? Author Type: Registered Nurse Type: Nursing Progress Note Filed: 07/12/2018 5:38 PM Note Text: Nursing Progress Note Patient Name: Hector Murry Patient Location: [place] [address] [address] Daily Note: Pt AANDOx3. Lungs clear. Bowel [...] belongings. This note was completed by: Radha Frost RN [facility] PLAN OF CAREon 07-12-2018 PLAN OF CARE HNO ID: [id number] Author: Shelbi Min (Custodial Officer) Service: Pharmacy Author Type: Instantizer Operator Type: Plan of Care Filed: 07/16/2018 3:45 PM Note Text: SUSTAINABLE COMMUNITIES DESIGNER BEDSIDE DELIVERY SURVEY 1. Patient to use [facility] Bedside Delivery - YES Insurance Information as follows: 2. Insurance card on file - YES 3. Credit card for payment - N/A [facility] PLAN OF CARE HNO ID: [id number] Author: Shelbi Min ([employer]) Service: Pharmacy Author Type: Instantizer Operator Type: Plan of Care Filed: 07/16/2018 3:45 PM Note Text: Pharmacy Discharge Medication Service: This patient has elected to receive their discharge prescriptions through the [facility] Bedside Prescription Delivery program. The prescriptions are currently being processed. A follow-up note will be entered once the prescriptions have been filled and delivered to the patient. Please contact me with any questions or updates to the patient's discharge medications. Shelbi Min ([employer]) DCT Contact Info: [id number] [facility] PLAN OF CARE HNO ID: [id number] Author: Shelbi Herring[facility]) Service: Pharmacy Author Type: Instantizer Operator Type: Plan of Care Filed: 07/16/2018 3:46 [...] FLAGYL neomycin 500 mg tablet Shelbi Min ([employer]) PAGER: [phone] July 16, 2018 3:46 PM [facility] PROGRESSon 07-12-2018 PROGRESS HNO ID: [id number] Author: Mio Mortensen Service: Colorectal Author Type: Resident Type: Progress Notes Filed: 07/12/2018 7:49 AM Note Text: SURGERY PROGRESS NOTE Hector Murry [id number] Hospital Day: 3 2 Days Post-Op: laparoscopic sigmoidectomy with PORTAINER OPERATOR ASSESSMENT AND PLAN: 63 year old male [...] Surgery July 12, 2018 7:40 AM Normal [facility] Basic Metabolic Panlon 07-11 Anion gap [Moles/Vol] 13 mmol/L Normal 9-18 [facility] Comment on above: Performed By: #### T SCR30 #### [facility] [address] [place] [address] Calcium [Mass/Vol] 8.6 mg/dL Normal 8.5-10.5 [facility] Comment on above: Performed By: #### T SCR30 #### [place] [phone] Chloride [Moles/Vol] 99 mmol/L Normal 98-110 [facility] Comment on above: Performed By: #### T SCR30 #### [place] [phone] CO2 [Moles/Vol] 23 mmol/L Normal 23-32 [facility] Comment on above: Performed By: #### T SCR30 #### [place] [phone] Creatinine [Mass/Vol] 0.81 mg/dL Normal 0.70-1.40 [facility] Comment on above: Performed By: #### T SCR30 #### [place] [phone] eGFR- Amer. >60 Normal >60 [facility] Comment on above: Performed By: #### T SCR30 #### [place] [phone] GFR/1.73 sq M predicted among non-blacks MDRD (S/P/Bld) [Vol rate/Area] mL/min/{1.73_m2} Normal >60 [facility] Comment on above: Performed By: #### T SCR30 #### [place] [phone] Glucose [Mass/Vol] 277 mg/dL High 65-100 [facility] Comment on above: Performed By: #### T SCR30 #### [place] [phone] Potassium [Moles/Vol] 4.1 mmol/L Normal 3.5-5.0 [facility] Comment on above: Performed By: #### T SCR30 #### [place] [phone] Sodium [Moles/Vol] 135 mmol/L Normal 135-146 [facility] Comment on above: Performed By: #### T SCR30 #### [facility] [address] [place] [address] Urea nitrogen [Mass/Vol] 9 mg/dL Low 10-25 [facility] Comment on above: Performed By: #### T SCR30 #### [facility] [address] [place] [address] CASE MGT INIT ASSESon 2018 CASE MGT INIT ASSES HNO ID: [id number] Author: Teresa Webber ([place]) Service: Case Management Author Type: Top Inventory Control Executive Type: Care Mgt Initial Assessment Filed: 07/11/2018 4:00 PM Note Text: CARE MANAGEMENT: ASSESSMENT AND DISCHARGE PLAN SERVICE DATE: 07/11/2018 SERVICE TIME: 3:45 PRIMARY CARE PHYSICIAN: Marvin Cooley MD ADMISSION STATUS: Inpatient Needs Prior to Discharge: Ready for Discharge 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 Health Issues Impacting Discharge Plan: Colon CA, had Laparoscopic sigmoidectomy with PORTAINER OPERATOR, mobilization of splenic flexure Last Admission Date: none Is this Within the Past 30 days? No Advance Directive: Current Advance Directive: Health Care Power of Neurology Professor In Chart: No Embedded Developer Attempted to Assist with AD Completion: Yes [...] None Has the Patient Been in a Longterm Facility in the Past 30 days? No SOCIAL: Living Arrangement: Home Lives With: Spouse Financial Resources: Retired Primary Contact: Extended Emergency Contact Information Primary Emergency Contact: Cristal Murry Address: [place] [address] [facility] Mobile Relation: Spouse Supportive: Yes Other Important [...] skilled needs. SIGNATURE: JENNIFER Zambrano PATIENT NAME: Hector Murry DATE: July 11, 2018 TIME: 3:57 PM PAGER/CONTACT #: [phone] Normal [facility] CBC and Differentialon 07-11 Abs Baso <0.03 Normal <0.11 [facility] Comment on above: Performed By: #### T SCR30 #### [place] [phone] Abs Kenton 1.17 k/uL High <0.87 [facility] Comment on above: Performed By: #### T SCR30 #### [place] [phone] Abs Neut 9.39 k/uL High 1.45-7.50 [facility] Comment on above: Performed By: #### T SCR30 #### [place] [phone] Basophils/100 WBC (Bld) 0.1 % Normal [facility] Comment on above: Performed By: #### T SCR30 #### [place] [phone] DTYPE Auto Diff Normal [facility] Comment on above: Performed By: #### T SCR30 #### [phone] Eosinophils (Bld) [#/Vol] 10*3/uL Normal <0.46 [facility] Comment on above: Performed By: #### T SCR30 #### [place] [phone] Eosinophils/100 WBC (Bld) 0.0 % Normal [facility] Comment on above: Performed By: #### T SCR30 #### [place] [phone] Erythrocyte distribution width (RBC) [Ratio] 14.4 % Normal 11.5-15.0 [facility] Comment on above: Performed By: #### T SCR30 #### [place] [phone] Hematocrit (Bld) [Volume fraction] 33.1 % Low 39.0-51.0 [facility] Comment on above: Performed By: #### T SCR30 #### [place] [phone] Hemoglobin (Bld) [Mass/Vol] 10.5 g/dL Low 13.0-17.0 [facility] Comment on above: Performed By: #### T SCR30 #### [place] [phone] Lymphocytes (Bld) [#/Vol] 1.00 10*3/uL Normal 1.00-4.00 [facility] Comment on above: Performed By: #### T SCR30 #### [place] [phone] Lymphocytes/100 WBC (Bld) 8.6 % Normal [facility] Comment on above: Performed By: #### T SCR30 #### [phone] MCH (RBC) [Entitic mass] 27.6 pG Normal 26.0-34.0 [facility] Comment on above: Performed By: #### T SCR30 #### [place] [phone] MCHC (RBC) [Mass/Vol] 31.7 g/dL Normal 30.5-36.0 [facility] Comment on above: Performed By: #### T SCR30 #### [place] [phone] MCV (RBC) [Entitic vol] 87.1 fL Normal 80.0-100.0 [facility] Comment on above: Performed By: #### T SCR30 #### [place] [phone] Monocytes/100 WBC (Bld) 10.1 % Normal [facility] Comment on above: Performed By: #### T SCR30 #### [phone] Neutrophils/100 WBC (Bld) 81.2 % Normal [facility] Comment on above: Performed By: #### T SCR30 #### [place] [phone] Platelet mean volume (Bld) [Entitic vol] 10.9 fL Normal 9.0-12.7 [facility] Comment on above: Performed By: #### T SCR30 #### [place] [phone] Platelets (Bld) [#/Vol] 273 10*3/uL Normal 150-400 [facility] Comment on above: Performed By: #### T SCR30 #### [place] [phone] RBC (Bld) [#/Vol] 3.80 10*6/uL Low 4.20-6.00 [facility] Comment on above: Performed By: #### T SCR30 #### [place] [phone] WBC (Bld) [#/Vol] 11.57 10*3/uL High 3.70-11.00 [facility] Comment on above: Performed By: #### T SCR30 #### [facility] [address] [place] [id number] NURSING PROGon 07-11-2018 NURSING PROG HNO ID: [id number] Author: Radha Freeman) MARGARET Frost Service: ? Author Type: Registered Nurse Type: Nursing Progress Note Filed: 07/11/2018 12:43 PM Note Text: Nursing Progress Note Patient Name: Hector Murry Patient Location: [address]/[id number] Daily Note: Pt AANDOx3. Lungs clear. Bowel sounds active, abdomen soft, tender. + flatus. IVF infusing per orders. Tolerating 500ml clear liquids Q8 hours. Up with stand-by assistance, ambulates pod with minimal assist. C/O abdominal pain, medicated per orders. Noel removed this AM, will monitor urine output. Denies further needs at this time. Will continue POC. This note was completed by: Radha Frost RN Normal [facility] PROGRESSon 07-11-2018 PROGRESS HNO ID: [id number] Author: Kg Dee (Fel) Service: Colorectal Author Type: Fellow Type: Progress Notes Filed: 07/11/2018 8:49 AM Note Text: COLORECTAL SURGERY POSTOP PROGRESS NOTE SERVICE DATE: 07/11/2018 SERVICE TIME: 6:45AM POD #1 lap sigmoidectomy with PORTAINER OPERATOR Subjective INTERVAL HPI and PERTINENT ROS: July, [...] and imaging results. Assessment/Plan POSTOP PLANS: D/C nole, CLD, encourage ambulation Noel: No Continued Need For Noel Catheterization Medication and Non-Pharmacologic VTE Prophylaxis/Anticoagulan ts Anticoagulant AND Antiplatelet Medications (From admission, onward) Start Dose Route Frequency Ordered Stop 07/11/18 0900 enoxaparin 40 mg injection (LOVENOX) (Surgical Moderate Risk ) 40 mg SUBCUTANEOUS DAILY 07/10/18 173 -- 07/10/18 174 pneumatic compression stockings (mn,wi) 07/10/18 174 activity - mobilize patient (mn,wi) VTE Prophylaxis: VTE prophylaxis appropriate Reason for [...] 11, 2018 TIME: 8:47 AM PAGER/CONTACT #: [id number] [id number] [facility] PROGRESS HNO ID: [id number] Author: Madeline Yeung Service: General Surgery Author [...] male POD 0 s/p Laparoscopic sigmoidectomy with PORTAINER OPERATOR, mobilization of splenic flexure -routine post op care Ana Yeung MD General Surgery PGY-1 [facility] Pager: [phone], weekdays 6A-6P logistics coordinator pager: [phone], nights and weekends Date: 07/10/2018 Time: 10:58 PM [facility] ANES Bernadine 07-10-2018 ANES POST HNO ID: [id number] Author: Mason Herrmann Service: Anesthesiology Author Type: Anesthesiologist Type: Anesthesia PostOp Filed: 07/10/2018 4:28 PM Note Text: POST ANESTHESIA EVALUATION NOTE SERVICE DATE: 07/10/2018 SERVICE TIME: 162 : 1955 Vitals: 07/10/18 1008 07/10/18 1554 [...] 10, 2018 TIME: 4:27 PM PAGER/CONTACT #: [facility] ANES PREOPon 07-10-2018 ANES PREOP HNO ID: [id number] Author: Antelmo Nicholson Service: Pain Management Author [...] ASA Monitors Pain Management Plan: ROOT Protocol EPIC Chart Review ACTIVE PROBLEM LIST Malignant Neoplasm [...] prior to surgery Inpatient medications reviewed in EPIC. I have interviewed and examined the patient. [...] 10, 2018 TIME: 10:56 AM PAGER/CONTACT #: [facility] BRIEF OP NOTon 07-10-2018 BRIEF OP NOT HNO ID: [id number] Author: Mio Mortensen Service: Colorectal Author Type: Resident Type: Brief Op Note Filed: 07/10/2018 3:44 PM Note Text: BRIEF OP NOTE LOG ID: [id number] Surgery/Procedure Date: 07/10/2018 Incision/Procedure Start Time: 12:09 PM Incision Close/Procedure End Time: 3:40 PM Surgeon(s)/Proceduralist (s) and Roustabout(s): Surgeon(s) and Role: * Navjot Shultz - Primary * Mio Mortensen - Resident - Assisting Procedure(s): Laparoscopic sigmoidectomy with PORTAINER OPERATOR, mobilization of splenic flexure Anesthesia: General Findings: Sigmoid tumor, negative leak test on sigmoidoscopy Estimated Blood Loss: 75 mls Specimens: sigmoid colon Complications: None Pre-Op/Pre-Procedure Diagnosis: Colon cancer Post-Op/Post-Procedure Diagnosis: Colon cancer (HCC) [C18.9] SIGNATURE: Mio Mortensen MD PATIENT NAME: Hector Murry DATE: July 10, 2018 TIME: 3:43 PM PAGER/CONTACT #: [phone] [facility] Confirm Blood Typeon 019 ABO/RH(D) Positive [facility] Comment on above: Performed By: #### C ONABO #### [facility] [address] [place] [address] HISTORY PHYSICALon 9 HISTORY PHYSICAL HNO ID: [id number] Author: Mio Mortensen Service: Colorectal Author Type: [...] July 10, 2018 TIME: 11:06 AM PAGER: [facility] NURSING PROGon 07-10-2018 NURSING PROG HNO ID: [id number] Author: Ike Freeman) MARGARET Aguirre Service: ? Author Type: Registered Nurse Type: Nursing Progress Note Filed: 07/10/2018 7:14 PM Note Text: Nursing Progress Note Patient Name: Hector Murry Patient Location: [place] [address] [address] Daily Note:07/10/18 1830- Patient arrived to room [...] note was completed by: Ike Aguirre RN [facility] NURSING PROG HNO ID: [id number] Author: Owen (Rn) MARGARET Lopez Service: Nursing Author Type: Registered Nurse Type: Nursing Progress Note Filed: 07/10/2018 2:10 PM Note Text: Nursing Progress Note Patient Name: Hector Murry Patient Location: [facility] OR POOL/[facility] OR POOL Daily Note: 12:20 PMUpdated family via pager system. 1:13 PMUpdated family via pager system. 2:10 PMUpdated family via pager system. This note was completed by: Owen Lopez RN [facility] OPERATIVE NOon 07-10-2018 OPERATIVE NO HNO ID: [id number] Author: Navjot Shultz Service: Colorectal Author Type: Physician Type: Operative Report Filed: 07/12/2018 8:05 AM Note Text: [facility] - Operative Report HECTOR MURRY : 1955 AGE: 63. SEX: M PATIENT TYPE: I HOSP SVC: CORS LOCATION: [facility] ATTENDING PHYSICIAN: Navjot Shultz M.D. CSN NUMBER: [id number] DATE OF SURGERY/PROCEDURE: 07/10/2018 INCISION/PROCEDURE START TIME: 1209 hours INCISION CLOSE/PROCEDURE END TIME: 1540 hours. PREOPERATIVE DIAGNOSIS: Sigmoid colon cancer. POSTOPERATIVE DIAGNOSIS: Sigmoid colon cancer. SURGEON: Navjot Shultz M.D. MIXING TANK OPERATOR: Dr. Rodrick Hernández. SURGERY/PROCEDURE: Laparoscopic sigmoid colectomy [...] It was bulky and there was tattoo arvind adjacent to it. We began with lifting [...] in the umbilicus was then closed with [id number] #1 PDS. All the incisions were copiously irrigated and suctioned. We then closed the skin with 4-0 Monocryl and adhesive skin glue. The patient was then awoken from anesthesia and taken to recovery room. Navjot Shultz M.D. SATINDER:[id number] [facility] PT EDon 07-10-2018 PT ED HNO ID: [id number] Author: Amaya (Rn) MARGARET Juan Service: Nursing [...] None Electronically Signed By: Amaya Juan RN [facility] SURGICAL PATHOLOGYon 019 SURGICAL PATHOLOGY ADDITIONAL PROCEDURES PRESENT Specimen originated from [facility] Specimen #: [id number] Submitting Physician: NAVJOT SHULTZ __ FINAL DIAGNOSIS [...] in-situ hybridization tests have been determined by [facility]ology [facility] [place] ([facility]) in a manner consistent with CLIA requirements. One or more of these tests have not been cleared or approved by the FDA. [facility] is regulated under CLIA as qualified to [...] performed with attendance of rectal cancer multidisciplinary senior project leader/team lead: Yes Ancillary Studies: Immunohistochemistry Studies for Mismatch [...] repair (MMR) status: Proficient (microsatellite stable) Specimen: [id number] Block: A9 Comment: Intact expression of MMR [...] blockade than mismatch repair proficient tumors (NEJM 2015;372:4469-20 and Science 2017 Nov 11;357(2787):409-413). Subsequently, pembrolizumab was FDA-approved for the treatment [...] questions about this result, please call the [facility] [employer] [facility] at . Mismatch Repair Protein Immunohistochemistry Results (Loss or Normal): MLH1: Normal PMS2: Normal MSH2: Normal MSH6: Normal MLH1 promoter methylation assay ordered: No Laboratory Developed Test (LDT) Disclaimer: Positive and negative controls stain appropriately. Performance characteristics of immunohistochemical, immunofluorescent and chromogenic in-situ hybridization tests have been determined by [facility] [place] ([facility]) in a manner consistent with CLIA requirements. One or more of these tests have not been cleared or approved by the FDA. [facility] is regulated under CLIA as qualified to perform high-complexity testing. These tests are used for clinical purposes. They should not be regarded as investigational or for research. [facility]LEXYF/07-19-2018 Procedure Pathologist: Papito Reilly M.D., Ph.D. Electronic [...] up to 1.4 cm in greatest dimension. Retail Worker sections are submitted as follows: A1 perpendicular [...] submitted. BF/kr 07/11/2018 Gross examination performed at [facility], [address] [place] [address] Date of Report: 07/18/2018 Date of Procedure: 07/10/2018 Date of Receipt: 07/11/2018 Submitted by: NAVJOT SHULTZ Location: [facility] Diagnostic interpretation performed at [facility], [address] [place] [address]. CLIA Number: [id number] Normal [facility] Urinalysison 07-10-2018 Bilirubin, Urine Negative Normal Negative [facility] Comment on above: Performed By: #### T SCR30 #### [place] [address] Cast SEE COMMENT Critically abnormal 0 [facility] Comment on above: Result Comment: 5-10 Hyaline Cast Performed By: #### T SCR30 #### [place] [address] Clarity (U) Cloudy Critically abnormal Clear [facility] Comment on above: Performed By: #### T SCR30 #### [place] [id number] Color (U) Yellow Normal Yellow [facility] Comment on above: Performed By: #### T SCR30 #### [place] [phone] Comments SEE COMMENT Normal [facility] Comment on above: Result Comment: Micr oscopic Examination Performed Performed By: #### T SCR30 #### [place] [id number] Crystals LM Nom (Urine sed) SEE COMMENT Critically abnormal 0 [facility] Comment on above: Result Comment: Many Amorphous Performed By: #### T SCR30 #### [place] [id number] Glucose Ql (U) Trace Critically abnormal Negative [facility] Comment on above: Performed By: #### T SCR30 #### [place] [id number] Hemoglobin/Blood,Ur Negative Normal Negative [facility] Comment on above: Performed By: #### T SCR30 #### [address] Ketones Ql (U) Trace Critically abnormal Negative [facility] Comment on above: Performed By: #### T SCR30 #### [place] [id number] Leukest Trace Critically abnormal Negative [facility] Comment on above: Performed By: #### T SCR30 #### [place] [id number] Mucus Ql (Urine sed) Present Normal [facility] Comment on above: Performed By: #### T SCR30 #### [place] [id number] Nitrite Ql (U) Negative Normal [facility] Comment on above: Performed By: #### T SCR30 #### [place] [id number] pH (Bld) 5.0 Normal 5.0-8.0 [facility] Comment on above: Performed By: #### T SCR30 #### [place] [id number] Protein (U) [Mass/Vol] 30 mg/dL Critically abnormal Negative [facility] Comment on above: Performed By: #### T SCR30 #### [place] [id number] RBC (U) [#/Vol] 0-5 Critically abnormal Negative [facility] Comment on above: Performed By: #### T SCR30 #### [place] [id number] Specific [place], Ur 1.028 Normal 1.005-1.030 [facility] Comment on above: Performed By: #### T SCR30 #### [place] [id number] Urobilinogen Qn (U) <2.0 Normal <2.0 [facility] Comment on above: Performed By: #### T SCR30 #### [place] [id number] WBC (Bld) [#/Vol] 0-5 Critically abnormal Negative [facility] Comment on above: Performed By: #### T SCR30 #### [place] [id number] Urine Cultureon 07-10-2018 Bacteria identified Cx Nom (U) Sp. Request/Comment: - Specimen received in preservative Culture Result - No growth (<1,000 CFU/ml) Normal [facility] Comment on above: Performed By: #### U RCUL ####[place] [id number] [phone] NURSING PROGon 07-09-2018 NURSING PROG HNO ID: [id number] Author: Sana HerringRnNavarro Romo RN Service: Nursing Author Type: Registered Nurse Type: Nursing Progress Note Filed: 07/09/2018 9:22 AM Note Text: Addendum: CEA/ Confirmed EKG results in epic. Jovanny [facility] NURSING PROGon 07-06-2018 NURSING PROG HNO ID: [id number] Author: Joelle (Rn) Vasquez RN Service: ? Author Type: Registered Nurse Type: Nursing Progress Note Filed: 07/06/2018 9:59 AM Note Text: Addendum: CBC, CMP, and TANDS within acceptable limits. CEA and EKG pending. Joelle Ovalle RN [facility] NURSING PROGon 07-05-2018 NURSING PROG HNO ID: [id number] Author: Sola (Rn) MARGARET iMx Service: General Surgery Author Type: Registered Nurse [...] Mix RN July 05, 2018 1:37 PM [facility] Type and SCR (30D)on 019 ABO/RH(D) Positive [facility] Comment on above: Performed By: #### T SCR30 #### [facility] [address] [place] [address] HOSPon 06-28-2018 HOSP Patient:Anastasiya Murry esterpallavi MRN: Height:6' 0 (1.829 m) Weight:225 lb [...] 39.6 % 07/05/2018 51.0 39.0 Progress Notes ([facility]): Navjot Shultz MD 06/30/2018 2:28 PM [...] fevers. Neuro: No history of TIA's, stroke, POLISH MAKER tumor, impaired sensorium, hemiplegia, paraplegia or quadraplegia. No neurological symptoms or problems. Respiratory: No history of current cough or dyspnea, or pneumonia in the past 6 weeks. No history of respiratory/pulmonary symptoms or problems Cardiovascular: No history of HTN requiring medication, no history of angina, CHF, AK, cardiac surgery or stents. Denies rest pain, [...] 06/28/18 TIME: 8:06 AM Previous Version Normal [facility] Vital Signs Date Time Vital Sign Value Performing Clinician Facility 05-28-2024 09:12-0500 Body height 182.88 cm [employer] DO Work Phone: [facility] 05-28-2024 09:12-0500 Body mass index (BMI) [Ratio] 31.4 kg/m2 Marvin Boond DO Work Phone: [facility] 05-28-2024 09:12-0500 Body weight 105.23 kg Marvin Boond DO Work Phone: [facility] 05-28-2024 09:12-0500 Diastolic blood pressure 89 mm[Hg] Marvin Ball DO Work Phone: [facility] 05-28-2024 09:12-0500 Heart rate 62 /min Marvin Ball DO Work Phone: [facility] 05-28-2024 09:12-0500 Respiratory rate 12 /min Marvin Ball DO Work Phone: [facility] 05-28-2024 09:12-0500 Systolic blood pressure 139 mm[Hg] Marvin Boond DO Work Phone: [facility] 05-07-2024 10:15-0500 Body height 182.88 cm Marvin Boond DO Work Phone: [facility] 05-07-2024 10:15-0500 Body mass index (BMI) [Ratio] 31.1 kg/m2 Marvin Boond DO Work Phone: [facility] 05-07-2024 10:15-0500 Body weight 104.32 kg Marvin Ball DO Work Phone: [facility] 05-02-2024 11:29-0500 Body height 182.88 cm [facility] 05-02-2024 11:29-0500 Body mass index (BMI) [Ratio] 31.2 kg/m2 [facility] 05-02-2024 11:29-0500 Body weight 104.49 kg [facility] 05-02-2024 11:29-0500 Diastolic blood pressure 97 mm[Hg] [facility] 05-02-2024 11:29-0500 Heart rate 81 /min [facility] 05-02-2024 11:29-0500 Respiratory rate 12 /min [facility] 05-02-2024 11:29-0500 Systolic blood pressure 167 mm[Hg] [facility] 11-27-2023 09:21-0400 Body height 182.88 cm [facility] 11-27-2023 09:21-0400 Body mass index (BMI) [Ratio] 29.7 kg/m2 [facility] 11-27-2023 09:21-0400 Body weight 99.33 kg [facility] 11-27-2023 09:21-0400 Diastolic blood pressure 95 mm[Hg] [facility] 11-27-2023 09:21-0400 Heart rate 60 /min [facility] 11-27-2023 09:21-0400 Respiratory rate 12 /min [facility] 11-27-2023 09:21-0400 Systolic blood pressure 170 mm[Hg] [facility] 05-26-2023 08:30-0500 Body height 182.88 cm Marvin Ball Other [employer] [facility] [employer] Other 05-26-2023 08:30-0500 Body mass index (BMI) [Ratio] 31.05 kg/m2 Marvin Ball Other [employer] Other 05-26-2023 08:30-0500 Body weight 103.87 kg Marvin Ball Other [employer] Other 05-26-2023 08:30-0500 Diastolic blood pressure 81 mm[Hg] Marvin Ball Other [employer] Other 05-26-2023 08:30-0500 Respiratory rate 12 /min Marvin Ball Other [employer] Other 05-26-2023 08:30-0500 Systolic blood pressure 161 mm[Hg] Marvin Ball Other [employer] Other 05-31-2022 12:30-0500 Body height 182.88 cm Marvin Ball Other [employer] Other 05-31-2022 12:30-0500 Body mass index (BMI) [Ratio] 31.84 kg/m2 Marvin Ball Other [employer] Other 05-31-2022 12:30-0500 Body weight 106.51 kg Marvin Ball Other [employer] Other 05-31-2022 12:30-0500 Diastolic blood pressure 82 mm[Hg] Marvin Ball Other [employer] Other 05-31-2022 12:30-0500 Respiratory rate 12 /min Marvin Ball Other [employer] Other 05-31-2022 12:30-0500 Systolic blood pressure 126 mm[Hg] Marvin Ball Other [employer] Other Encounters Encounter Date Encounter Type Care Provider Facility Start: 05-28-2024 End: 05-28-2024 ambulatory Marvin Ball DO Work Phone: [facility] Work Phone: Start: 05-28-2024 End: 05-28-2024 Patient encounter procedure Marvin Ball DO Work Phone: [facility] Physician [facility] Work Phone: Start: 05-09-2024 End: 05-09-2024 ambulatory Marvin Ball DO Work Phone: [facility] Work Phone: Start: 05-09-2024 End: 05-09-2024 Patient encounter procedure Marvin Ball DO Work Phone: [facility] Physician [facility] Work Phone: Start: 05-08-2024 End: 05-08-2024 Patient encounter procedure Marvin Ball DO Work Phone: [facility] [address] [facility] Work Phone: Start: 05-08-2024 End: 05-08-2024 ambulatory Marvin Ball DO Work Phone: [facility] Work Phone: Start: 05-07-2024 End: 05-07-2024 ambulatory Marvin Ball DO Work Phone: [facility] Work Phone: Start: 05-07-2024 End: 05-07-2024 Patient encounter procedure Marvin Ball DO Work Phone: [facility] Physician [facility] Work Phone: Start: 05-02-2024 End: 05-02-2024 ambulatory [facility] Work Phone: Start: 05-02-2024 End: 05-02-2024 Patient encounter procedure [facility] Physician [facility] Work Phone: Start: 11-27-2023 End: 11-27-2023 ambulatory [facility] Work Phone: Start: 11-27-2023 End: 11-27-2023 Patient encounter procedure [facility] Work Phone: Start: 05-26-2023 End: 05-26-2023 ambulatory Marvin Cooley Other [employer] Other Start: 05-26-2023 Office outpatient vi sit 25 minutes Marvin Cooley [facility] Start: 05-31-2022 End: 05-31-2022 ambulatory Marvin Cooley Other [employer] Other Start: 05-31-2022 Office outpatient vi sit 15 minutes Marvin Cooley [facility] Start: 03-16-2022 End: 03-17-[address] MARVIN COOLEY Facility:[facility] Start: 02-16-2022 End: 02-16-2022 ambulatory MARVIN COOLEY Facility:[facility] Start: 12-16-2021 Encounter for genera l adult medical examination without abnormal findings DR MARVIN COOLEY [facility] Start: 12-15-2021 End: 12-16-[address] MARVIN COOLEY Facility:[facility] Start: 12-15-2021 End: 12-16-2021 Encounter for general adult medical examination without abnormal findings DR MARVIN COOLEY Facility:[facility] Start: 11-12-2021 Adult health examination Sandoval Cooley Other [employer] Other Start: 08-06-2021 ambulatory Navjot coker MD Work Phone: Colorectal Surgery Comment on above: blood work Malignant neoplasm o f sigmoid colon (HCC) (Primary Dx) Start: 08-06-2021 E-mail encounter fro m caregiver Navjot Shultz MD Work Phone: [facility] Start: 07-28-2021 End: 07-28-2021 ambulatory NAVJOT SHULTZ Facility:[facility] Start: 07-23-2021 Telephone encounter Navjot clark MD Work Phone: Colorectal Surgery Comment on above: 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 Ranjith Logan Start: 07-05-2018 Antibody screen Comment on above: Performed By: #### T SCR30 #### [place] [address] Start: 04-27-2018 Screening for malign ant neoplasm of colon Marvin Cooley Other Depression screening Cliff Cooley Other Plan of Treatment Date Care Activity Detail Author Start: 05-02-2024 Patient referral [facility] Work Phone: Start: 01-15-2022 End: 05-17-2022 Carcinoembryonic Ag [Mass/volume] in Serum or Plasma CEA BLD Lab Routine Malignant neoplasm of sigmoid colon (HCC) Expected: 01/15/2022, Expires: 05/17/2022 [facility] Work Phone: Comment on above: Expected: 01/15/2022 , Expires: 05/17/2022 Start: 12-16-2021 Influenza vaccination INFLUENZ A (Season Ended) [facility] Start: 07-23-2021 End: 09-22-2021 Carcinoembryonic Ag [Mass/volume] in Serum or Plasma CEA BLD Lab Routine Malignant neoplasm of sigmoid colon (HCC) Expected: 07/23/2021, Expires: 09/22/2021 [facility] Work Phone: Comment on above: Expected: 07/23/2021 , Expires: 09/22/2021 Start: 07-12-2021 DIABETES SCREEN DIABETES SCREEN [facility] Start: 04-17-2021 ADVANCE DIRECTIVE DISCUSSION ADVANCE DIRECTIVE DISCUSSION [facility] Start: 2019 PNEUMOVAX AGE 65 AND OVER WITH 5YR LOOKBACK (#1) PNEUMOVAX AGE 65 AND OVER WITH 5YR LOOKBACK (#1) [facility] Start: 2009 PROSTATE CANCER SCRE ENING DISCUSSION PROSTATE CANCER SCREENING DISCUSSION [facility] Start: 2004 SHINGRIX VACCINE (1 of 2) EDWARDS GRIX VACCINE (1 of 2) [facility] Start: 1999 COLOGUARD (FIT-DNA) COLOGUARD (FIT-D NA) [facility] Start: 1999 Colonoscopy COLONOSCOPY [facility] Start: 1999 COLORECTAL CANCER SCREENING COLORECTAL CANCER SCREENING [facility] Start: [address] COLONOGRAPHY [facility] Start: 1999 FECAL OCCULT BLOOD FECAL OCCULT BLOO D [facility] Start: 1999 SIGMOIDOSCOPY SIGMOIDOSCOPY [facility] Start: 1989 LIPID SCREEN LIPID SCREEN [facility] Start: 1973 Urine microalbumin profile DTAP,TDAP ,TD (1 - Tdap) [facility] Start: 1972 HEPATITIS C SCREENING HEPATITIS C SC REENING [facility] Start: 1966 Adult depression scr eening assessment DEPRESSION SCREENING [facility] Start: 1959 COVID-19 VACCINE (1) COVID-19 VACCIN E (1) [facility] Comprehensive metabo lic 2000 panel - Serum or Plasma [facility] Microalbumin [Mass/v olume] in Urine [facility] MR Elbow - right WO contrast [facility] Patient referral [facility] Work Phone: [facility] Immunizations Immunization Date Immunization Notes Care Provider Fa viktoriyaty 01-31-2022 COVID-19 Pfizer (bivalent) Marvin Cooley Other [facility] 01-29-2021 COVID-19 Vaccine Pfi zer - Documentation Purposes Only Marvin Cooley Other [facility] 06-19-2020 COVID-19 Vaccine Pfi zer - Documentation Purposes Only Marvin Cooley Other [facility] 05-29-2020 COVID-19 Vaccine Pfi zer - Documentation Purposes Only Marvin Cooley Other [facility] Payers Date Payer Category Payer Medicare [id number] [id number] 2024 Self-pay 2024 Unknown [id number] 2016 Private Health Insurance [id number] 1959 Unknown [id number] 1955 Unknown [id number] [id number] 1955 Unknown [id number] 2.16.84 [id number] 1955 Unknown [id number] 2.16.84 [id number] Private Health Insurance CLI [id number] Unknown [id number] 2.16.8 [id number] Unknown [id number] 2.16.8 [id number] Social History Date Type Detail Facility Start: 06-28-2018 End: 11-27-2023 Tobacco smoking status NHIS Never smoked tobacco [facility] Start: 06-28-2018 Tobacco use and exposure Smokeless tobacco non-user [facility] Start: 10-17-2019 Alcohol intake Current drinke r of alcohol (finding) [facility] Start: 10-17-2019 [facility] Start: 06-14-2019 History SDOH Alcohol Frequency 3 [facility] Start: 06-14-2019 History SDOH Alcohol Std Drinks 2 [facility] Start: 06-14-2019 History SDOH Alcohol Binge 1 [facility] Start: 07-05-2018 History SDOH Alcohol Comment 4-5 beers a week [facility] Start: 1955 Sex Assigned At Not on file C [facility] Start: 07-18-2021 End: 07-28-2021 Exposure to SARS-CoV-2 (event) Not sure [facility] Sex Assigned At Sex Assigned At [place] th [place] [facility] [employer] Other Start: 1955 Sex Assigned At Male F [facility] Start: 05-02-2024 End: 05-28-2024 Sex Male (finding) [facility] Medical Equipment Procedure Code Equipment Code Equipment Origin al Text Equipment Identifier Dates Mesh Parietene D s [id number] - [id number] Start: 06-25-2019 Start: 12-08-2022 Clinical Notes 07-23-2021 to 05-02-2024 Note Date & Type Note Facility 05-02-2024 Evaluation note Diagnosis Onset Date Resolution Rupture of distal biceps tendon acute May 02 11:11am Right elbow pain noneactive May 02, 2024 11:11am Rupture of distal biceps tendon acute May 07 9:52am [facility] Work Phone: 1(457) 550-440601-16-2025 Evaluation note* Diagnosis Onset Date Resolution Status Admit Date Rupture of distal biceps tendon acute May 02 11:11am Right elbow pain noneactive May 02, 2024 11:11am Rupture of distal biceps tendon acute May 07 9:52am Rupture of distal biceps tendon acute May 09 10:11am [facility] Work Phone: 1(338) 206-861301-16-2025 Evaluation note* Diagnosis Onset Date Resolution Status Admit Date Rupture of distal biceps tendon acut e May 02, 2024 11:11am Right elbow pain noneactive May 02, 2024 11:11am Rupture of distal biceps tendon acut e May 07, 2024 9:52am Rupture of distal biceps tendon acut e May 09, 2024 10:11am Benign prostatic hyperplasia with lower urinary tract symptoms acute May 28, 2 025 9:02am H/O malignant neoplasm of colon acut e May 28, 2024 9:02am Hypercholesterolemia acute Febr uary 2024 9:02am Hypertension acute May h, 2024 9:02am Rupture of distal biceps tendon acut e May 28, 2024 9:02am Type 2 diabetes mellitus wit h hyperglycemia acute May 28, 025 9:02am [facility] Work Phone: 1(567) 794-806002-09-2024 Evaluation note* Encounter Date Diagnosis Assessment Notes Treatment Notes Treatment Clinical Notes May, Primary hypertension (ICD-10 - I10) [...] renal protective effects. May, Type 2 diabetes hilario itus with hyperglycemia, without long-term current use of [...] eye exam and Foot exam May, Pure hypercholestero lemia (ICD-10 - E78.00) Instructed on diet and exercise with continued statin therapy.Discussed the beneficial effects of lowering cholesterol in [...] 3-5 times weekly. May, Body mass index [BMI ] 31.0-31.9, adult (ICD-10 - Z68.31) [employer] Other 02-14-2023 Evaluation note* Encounter Date Diagnosis Assessment Notes Treatment Notes Treatment Clinical Notes May, Pure hypercholestero lemia (ICD-10 - E78.00) Diet and exercise with continued statin therapy. May, Type 2 diabetes hilario itus with hyperglycemia, without long-term current use of [...] at the office visit. May, Obesity (BMI 30-39.9 ) (ICD-10 - E66.9) This patient has been instructed on a low-fat, high-fiber diet. They are instructed to reduce calories, portion sizes and snacks. It is recommended that they exercise for 30 minutes, 3-5 times weekly. May, Nocturia (ICD-10 - R35.1) May, Benign prostatic hyperplasia with lower urinary tract symptoms (ICD-10 - N40.1) Yearly VICTORINA and PSA May, History of colon can cer (ICD-10 - Z85.038) Next colonoscopy 2024 UTD w/ [employer] scopes May, Other This patient is instructed to consume a healthy, low-fat, low-salt diet. They are also encouraged to continue exercise to achieve/maintain a normal BMI. [employer] Other 04-08-2022 NoteHNO ID: [id number] Author: Janae Lezama RN Service: ? Author Type: Registered Nurse Type: Progress Notes Filed: 07/23/2021 3:47 PM Note Text: Call returned to patient. Discussed surveillance x 5 yrs. Pt appreciative of the call. Will obtain lab work. Will forward CT scans to Dr Shultz for approval.[facility]04-08-2022 History of Present illness Narrative* Janae Lezama RN - 07/23/2021 3:42 PM EDT Call returned to patient. Discussed surveillance x 5 yrs. Pt appreciative of the call. Will obtain lab work. Will forward CT scans to Dr Shultz for approval. [facility] Miscellaneous Notes* Telephone Encounter - Janae Lezama RN - 07/23/2021 9:45 AM EDT Call placed to patient re: cancer surveillance. No answer, left message and office contact number should wish to discuss [facility] Diagnosis Malignant neoplasm of sigmoid colon (HCC)- Primary Malignant neoplasm of sigmoid colon Malignant neoplasm of rectosigmoid junction (HCC) Malignant neoplasm of rectosigmoid junction documented in this encounter [facility] note* Diagnosis Malignant neoplasm of sigmoid colon (HCC)- Primary Malignant neoplasm of sigmoid colon documented in this encounter [facility] note* Diagnosis Onset Date Resolution Status Benign prostatic hyperplasia with lower urinary tract symptoms acute H/O malignant neoplasm of colon acute Hypercholesterolemia acute Type 2 diabetes mellitus with hyperglycemia acute Medicare annual wellness visit, initial noneactive Screening PSA (prostate specific antigen) noneactive [facility] Work Phone: Evaluation noteNo assessment information available [facility] Work Phone: History general Narrative - Reported* Type Description Date Medical History Pure hypercholesterolemia Medical History Type 2 diabetes mellitus without complications Medical History Benign prostatic hyperplasia Medical History Overweight (BMI 25.0-29.9) Medical History Carcinoma of sigmoid colon Surgical History COLONOSCOPY 01/31/2020 Surgical History umbilical hernia repair 06/2019 Surgical History LAPARO PARTIAL COLECTOMY 9 Hospitalization History see surgical history [facility] Other History general Narrative - Reported* Type Description Date Medical History Pure hypercholesterolemia Medical History Type 2 diabetes mellitus without complications Medical History Benign prostatic hyperplasia Medical History Overweight (BMI 25.0-29.9) Medical History Carcinoma of sigmoid colon Surgical History COLONOSCOPY, repeat 2024 Surgical History umbilical hernia repair 06/2019 Surgical History LAPARO PARTIAL COLECTOMY 9 Hospitalization History see surgical history [facility] Other Summary Purpose Family History No Family History Records FoundNo Family History Records FoundNo Family History Records FoundNo Family History Records Found Advance Directives Documents on File Type Date Recorded 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 Author Type: Nurse Mercantile Reporter Type: Anesthesia Procedure Notes Filed: 06/25/2019 10:15 AM Note Text: ANESTHESIOLOGY PROCEDURE NOTE Airway General Information Procedure Start Time/Medication Administration: 06/25/2019 10:00 AM Patient location during procedure: OR Patient identity confirmed: arm band Staffing Anesthesiologist: Keon Fairchild SHUCKER: Ana Farris Performed by: KIRSTY Indications and Patient Condition Preoxygenated: yes Patient [...] (more content not included)... Note HNO ID: [id number] Author: Ismael Ace Service: General Surgery Author Type: Resident Type: Brief Op Note Filed: 06/25/2019 11:19 AM Note Text: BRIEF OPERATIVE / PROCEDURE NOTE LOG ID: [id number] SURGERY/PROCEDURE DATE: 06/25/2019 INCISION/PROCEDURE START TIME: 10:15 AM INCISION CLOSE/PROCEDURE END TIME: 11:13 AM SURGEON(S)/PROCEDURALIST(S) AND MIXING TANK OPERATOR(S): Surgeon(s) and Role: * Kassidy Ibarra - [...] 25, 2019 TIME: 11:18 AM PAGER/CONTACT #: [id number] Note HNO ID: [id number] Author: Chelly Helton Service: Colorectal Author Type: Nurse Practitioner Type: Discharge Summary Filed: 07/12/2018 2:52 PM Note Text: Attestation signed by Navjot Shultz at 07/15/2018 7:27 PM Attending Note: Pierson findings confirmed. Patient examined. Discussed with the resident/AUTO BODY REPAIR TEACHER/PA and the patient. Plan as outlined. Navjot Shultz MD, FACS, FASCRS Colorectal Surgery DISCHARGE SUMMARY PATIENT NAME: Hector [...] not included)... Hospital Course Note HNO ID: [id number] Author: Chelly gonzalez (Myra) Danie Service: Colorectal Author Type: Nurse Practitioner Type: Discharge Summary Filed: 07/12/2018 2:52 PM Note Text: Attestation signed by Navjot Shultz at 07/15/2018 7:27 PM Attending Note: Pierson findings confirmed. Patient examined. Discussed with the resident/AUTO BODY REPAIR TEACHER/PA and the patient. Plan as outlined. Navjot Shultz MD, FACS, [facility] Col[facility] Surgery DISCHARGE SUMMARY PATIENT NAME: Hector [...] visit, initial Screening PSA (prostate specific antigen) Chief Complaint Admit Date right elbow pain May 02, 2024 1 1:11am Chief Complaint Admit Date right elbow pain May 02, 2024 1 1:11am CONSULT DR. COOLEY RT ELBOW PAIN, NX 2024 9:52am M25.521 - Pain in right elbow May 072024 9:53am Reason for Visit Admit Date Rupture of distal biceps tendon May 02, 2024 11:11am Right elbow pain May 02, 2024 1 1:11am Rupture of distal biceps tendon May 07, 2024 9:52am Chief Complaint Admit Date right elbow pain May 02, 2024 1 1:11am CONSULT DR. COOLEY RT ELBOW PAIN, NX 2024 9:52am M25.521 - Pain in right elbow May 072024 9:53am S46.A May 08, 2024 8 :49am Chief Complaint Admit Date right elbow pain May 02, 2024 1 1:11am CONSULT DR. COOLEY RT ELBOW PAIN, NX 2024 9:52am M25.521 - Pain in right elbow May 072024 9:53am S46.A May 08, 2024 8 :49am MRI RESULTS May 09, 2024 1 0:11am Reason for Visit Admit Date Rupture of distal biceps tendon May 02, 2024 11:11am Right elbow pain May 02, 2024 1 1:11am Rupture of distal biceps tendon May 07, 2024 9:52am Rupture of distal biceps tendon May 09, 2024 10:11am Chief Complaint Admit Date right elbow pain May 02, 2024 1 1:11am CONSULT DR. COOLEY RT ELBOW PAIN, NX 2024 9:52am M25.521 - Pain in right elbow May 072024 9:53am S46.A May 08, 2024 8 :49am MRI RESULTS May 09, 2024 1 0:11am 6 month f/u May 28, 2024 9:02am Reason for Visit Admit Date Rupture of distal biceps tendon May 02, 2024 11:11am Right elbow pain May 02, 2024 1 1:11am Rupture of distal biceps tendon May 07, 2024 9:52am Rupture of distal biceps tendon May 09, 2024 10:11am Benign prostatic hyperplasia with lower urinary tract symptoms May 28, 2024 9:02am H/O malignant neoplasm of colon May 28, 2024 9:02am Hypercholesterolemia May 28, 2024 9:02am Hypertension May 28, 2024 9:02am Rupture of distal biceps tendon May 28, 2024 9:02am Type 2 diabetes mellitus with hyperglyce kendal May 28, 2024 9:02am Additional Source Comments (unrecognized sect ion and content) No Status Records FoundNo Status Records FoundNo Status Records FoundNo Status Records Found INFORMATION SOURCE (unrecogn ized section and content) DATE CREATED AUTHOR 06/27/2019 [facility] DATE CREATED AUTHOR AUTHOR'S ORGANIZ ATION 02/18/2022 [facility] DATE CREATED AUTHOR AUTHOR'S ORGANIZ ATION 03/19/2022 [facility] DATE CREATED AUTHOR AUTHOR'S ORGANIZ ATION 05/10/2024 [facility] Source Comments (unrecognize d section and content) In the event this informatio n is protected by the Federal Confidentiality of Alcohol and Drug Abuse Patient Records regulations: The Federal rules restrict any use of the information to criminally investigate or prosecute any alcohol or drug abuse patient.[facility] the event this information is protected by the Federal Confidentiality of Alcohol and Drug Abuse Patient Records regulations: The Federal rules restrict any use of the information to criminally investigate or prosecute any alcohol or drug abuse patient.[facility] the event this information is protected by the Federal Confidentiality of Alcohol and Drug Abuse Patient Records regulations: The Federal rules restrict any use of the information to criminally investigate or prosecute any alcohol or drug abuse patient.[facility] the event this information is protected by the Federal Confidentiality of Alcohol and Drug Abuse Patient Records regulations: The Federal rules restrict any use of the information to criminally investigate or prosecute any alcohol or drug abuse patient.[facility] Reason for Visit (unrecogniz ed section and content) 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 Care Teams (unrecognized sec tion and content) Flux Mixer Relationship Specialty Start Date End Date Marvin Cooley [place], DO [address] [facility] [place] [address] PCP - General Internal Medicine 06/27/18 Flux Mixer Relationship Specialty Start Date End Date Marvin Cooley, DO [address] [place] [address] PCP - General Internal Medicine 06/27/18 Flux Mixer Relationship Specialty Start Date End Date Marvin Cooley, DO [address] [place] [address] PCP - General Internal Medicine 06/27/18 Flux Mixer Relationship Specialty Start Date End Date Marvin Cooley, DO [address] [place] [address] PCP - General Internal Medicine 06/27/18 Team Status: Active Member Role Status Dates Marvin Cooley DO Primary Care Provider Active Team Status: Inactive Member Role Status Meme Cooley DO Primary Care Provide r, Attending Provider Active Start: November 27, 2023 End: November 27, 2023 Team Status: Inactive Member Role Status Meme Cooley DO Primary Care Provide r, Attending Provider Active Start: May 02, 2024 End: May 02, 2024 Team Status: Inactive Member Role Status Meme Cooley DO Primary Care Provider Active Start: May 07, 2024 End: May 07, 2024 Geronimo Loaiza , DO Attending Provider Active St art: May 07, 2024 End: May 07, 2024 Team Status: Active Member Role Status Meme Cooley DO Primary Care Provider Active Start: May 07, 2024 Geronimo Loaiza , DO Attending Provider Active St art: May 07, 2024 Team Status: Inactive Member Role Status Meme Cooley DO Primary Care Provider Active Start: May 08, 2024 End: May 08, 2024 Geronimo Loaiza , DO Attending Provider Active St art: May 08, 2024 End: May 08, 2024 Team Status: Inactive Member Role Status Meme Cooley DO Primary Care Provider Active Start: May 09, 2024 End: May 09, 2024 Geronimo Loaiza , DO Attending Provider Active St art: May 09, 2024 End: May 09, 2024 Team Status: Inactive Member Role Status Meme Cooley DO Primary Care Provide r, Attending Provider Active Start: May 28, 2024 End: May 28, 2024 Goals (unrecognized section and content) Goals may [...] BE BASED ON THE PRIMARY CLINICAL RECORDS. [facility]. provides no warranty or guarantee of the accuracy or completeness of information in this document.
[2024-05-30 08:13] LABS: Estimated Average Glucose 146 mg/dL; Glycohemoglobin A1C 6.7 % (4.5-6.2)
== END 2024-05-30 07:50 | disposition home or self-care (01) ==
PROVIDERS: PCP Internal Medicine; Visit Provider Internal Medicine
DX: E11.65 Type 2 diabetes mellitus with hyperglycemia (principal)
CPT/HCPCS: 36415; 83036

== ENCOUNTER 2024-12-09 06:52 | Outpatient (OUT) | payer MEDICARE, OTHER, SELFPAY ==
--- OUTSIDE RECORDS SUMMARY | 2024-12-09 06:55 | XMS_ITS | Clinical Summary ---
Author Organization [facility] Address [address] [place], [place] [id number] Care Team Providers Care Topographical Drafter Name Role Phone Marvin Cooley DO Primary Care Provider [phone] Allergies Active Allergy Reactions Criticality Noted Date Comments Penicillin Hives 06/28/2018 Medications iv contrast (will be provided with radiology test)Indicatio ns:Malignant neoplasm of sigmoid colon (HCC) CT Chest [...] contrast administration guidelines link. 1 Each 0 Active enteric contrast (will be provided with radiology test)Indicatio ns:Malignant neoplasm of sigmoid colon (HCC) For CT CHESTABD/PEL W IVCON Routine order Administer, As Directed One Time Only, via Oral, Rectal, both Oral and Rectal, Enteric Tube, Stoma or Indwelling Catheter, Enteric Contrast as designated per enteric contrast guidelines 1 Each 0 Active iv contrast (will be provided with radiology test)Indicatio ns:Malignant neoplasm of sigmoid colon (HCC) CT Chest [...] CT contrast administration guidelines link. 1 Each 2 Active enteric contrast (will be provided with radiology test)Indicatio ns:Malignant neoplasm of sigmoid colon (HCC) For CT CHESTABD/PEL W IVCON Routine order Administer, As Directed One Time Only, via Oral, Rectal, both Oral and Rectal, Enteric Tube, Stoma or Indwelling Catheter, Enteric Contrast as designated per enteric contrast guidelines 1 Each 2 Active Active Problems Problem Noted Date Diagnosed Date Incisional hernia, without obstruction or gangre ne 05/02/2019 Obesity, Class I, BMI 30-34.9 07/10/2018 Malignant neoplasm of sigmoid colon 07/04/2018 Cancer Staging:Clinical: Unsigned Pathologic stage from 07/18/2018: pT3, pN0 - Signed by Shen Beck on 07/18/2018 Family History Medical History Relation Comments Diabetes Mother Relation Status Comments Mother Alive Social History Tobacco Use Types Packs/Day Years Used Date Smoking Tobacco: Never Smokeless Tobacco: Never Alcohol Use Standard Drinks/Week Comments Yes 5 (1 standard drink = 0.6 oz pur e alcohol) 4-5 beers a week AUDIT-C Answer Date Recorded Q1: How often do you have a drink containing alc ohol? 2-4 times a month 06/14/2019 Q2: How many drinks containi ng alcohol do you have on a typical day when you are drinking? 3 or 4 06/14/2019 Q3: How often do you have si x or more drinks on one occasion? Never 06/14/2019 PHQ-2 Answer Date Recorded PHQ2 Score 0 07/10/2018 Area Deprivation Index Answer Date Steven rded National Score (1-100), lower number is lower ri sk Not on file 03/23/2020 State Score (1-10), lower number is lower risk N ot on file 03/23/2020 Data from: https://www.neighborhoodatlas.medicine.[facility].edu/. Last address used for calculation Not on file 03/23/2020 Sex and Gender Information Value Date Recorded Sex Assigned at Not on file Legal Sex Male 1:20 PM EDT Gender Identity Not on file Sexual Orientation Not on file Last Filed Vital Signs Vital Sign Reading Time Taken Comments Blood Pressure 148/87 10/17/2019 4:04 PM EDT Pulse 78 10/17/2019 4:04 PM EDT Temperature 36.6 C (97.8 F) 10/17/2019 4:04 PM EDT Respiratory Rate 14 06/25/2019 12:30 PM EDT Oxygen Saturation 96% 10/17/2019 4:04 PM EDT Inhaled Oxygen Concentration - - Weight 100.2 kg (221 lb) 10/17/2019 4:04 PM EDT Height 182.9 cm (6') 10/17/2019 4:04 PM EDT Body Mass Index 29.97 10/17/2019 4:04 PM EDT Plan of Treatment Health Maintenance Due Date Last Done Comments Anxiety Screening 1972 Depression Screening 1972 Hepatitis C Screening 1972 DTaP,Tdap,Td Vaccine (1 - Tdap) [address] Colonography 1999 Cologuard (FIT-DNA) 1999 Colonoscopy 1999 Colorectal Cancer Screening 1999 Fecal Occult Blood 1999 Sigmoidoscopy 1999 Pneumococcal Vaccine: 50+ (1 of 1 - PCV) 2004 Shingrix Vaccine (1 of 2) 2004 Diabetes Screening 07/12/2021 07/12/2018, 0 07/11/2018, 07/05/2018 Advance Directive Discussion 04/17/2024 Influenza Vaccine (#1) 2024 RSV Vaccine (1 - 1-dose 75+ series) 2029 Medical Devices Implanted Type Area Intake Worker Device Identifier Shelf Expiration Date Model / Serial / Lot Mesh Parietene Ds [id number] - [id number] Implanted:06/15 at [facility] (Quantity not on file) Mesh N/A: Abdomen [employer] 06/14/2020 [id number] / / [id number] Procedures Procedure Name Priority Date/Time Associated Diagnosis Comments BASIC METABOLIC PANEL (EU,FV,HL,DIMITRY,MM,SP) KOFFI 07/12/2018 5:41 AM EDT from Last 3 Months or Most Recently Relevant to Health Maintenance Results * (ABNORMAL) BASIC METABOLIC PANEL (AK,AV,EU,FV,HL,DIMITRY,MM,SP) (07/12/2018 5:41 AM EDT) Glucose 146(H) 65 - 100 mg/dL 07/12/2018 7:19 AM [facility] BUN 6(L) 10 - 25 mg/dL 07/12/2018 7:19 AM [facility] Creatinine 0.69(L) 0.70 - 1.40 mg/dL 07/12/2018 7:19 AM [facility] Sodium 142 135 - 146 mmol/L 07/12/2018 7:19 AM [facility] Comment:Reviewed Potassium 4.0 3.5 - 5.0 mmol/L 07/12/2018 7:19 AM [facility] Chloride 105 98 - 110 mmol/L 07/12/2018 7:19 AM [facility] Comment:Reviewed CO2 24 23 - 32 mmol/L 07/12/2018 7:19 AM [facility] Anion Gap 13 9 - 18 mmol/L 07/12/2018 7:19 AM [facility] Calcium 8.7 8.5 - 10.5 mg/dL 07/12/2018 7:19 AM [facility] eGFR- >60 >60 07/12/2018 7:19 AM [facility] eGFR-All Other Races >60 >60 . 07/12/2018 7:19 AM [facility] Blood specimen (specimen) BLOOD SPECIMEN / Unknown 07/12/2018 5:41 AM EDT 07/12/2018 5:44 AM EDT us Navjot Cerda MD [facility] Final Res ult [facility] [address] [id number] [address] [address] from Last 3 Months or Most Recently Relevant to Health Maintenance Insurance MEDICARE [facility] Care Teams Topographical Drafter Relationship Specialty Start Date End Date Marvin Cooley DO [address] [facility] [place] [address] PCP - General Internal Medicine 06/27/18
--- OUTSIDE RECORDS SUMMARY | 2024-12-09 06:55 | XMS_ITS ---
Author Organization [facility] Address [address] [place] [address] Care Team Providers Care Chief Talent Officer Name Role Phone Marvin Cooley DO Primary Care Provider [phone] Active Problems Problem Noted Date Diagnosed Date Incisional hernia, without obstruction or gangre ne 05/02/2019 Obesity, Class I, BMI 30-34.9 07/10/2018 Malignant neoplasm of sigmoid colon 07/04/2018 Cancer Staging:Clinical: Unsigned Pathologic stage from 07/18/2018: pT3, pN0 - Signed by Shen Beck on 07/18/2018 Current Treatment and Therapy Plans No current plan information found. Past Treatment and Therapy Plans No past plan information found. Treatment Summaries Malignant neoplasm of sigmoid colon (HCC)* Treatment Summary and Survivorship Care Plan for Colorectal Cancer Provided by: Janae Lezama RN General Information Patient Name: Hector Murry Patient : 1955 Patient phone: [phone] (home) E-mail: [email or web address] [facility] Providers Primary Care Provider: Marvin Cooley MD Surgeon: Navjot Cerda MD Treatment Summary Diagnosis Cancer Type: Colon Cancer Location: Sigmoid colon Diagnosis Date (year):06/27/2018- Dr Hitesh Gastelum MD Histology Subtype: Colorectal Adenocarcinoma Pathologic Stage: T3N0 Stage: II Predisposing Conditions: None Family History of Colon or Rectal Cancer: None Received Genetic counseling: No Genetic testing: No Pre-Op Colonoscopy: Yes Completion to cecum: No - will need complete colonoscopy in 3 months Other Lesions on Pre-Op Colonoscopy: None Treatment Completed Surgery: Yes Surgery Date(s) (year): 07/10/2018 Surgical procedure: Laparoscopic sigmoid colectomy with laparoscopic mobilization of splenic flexure and flexible sigmoidoscopy Permanent Ostomy: No Follow-up Care Plan Colon Cancer--Stage II or III: Years since Diagnosis Outpatient Visits (Colorectal Surgeon) Labs ([facility]) Imaging (Chest/Abd/Pelvis CT with Contrast) 0-2 1st yr: 3 mos, 6 mos,1 yr Year 2: every 6 mos Every 3 mos: Once yearly 2-4 Every year Every 6 mos Once yearly 4-5 Yearly yearly Once yearly 5-8 Based on prior findings Based on prior findings Based on prior findings Colonoscopy Due One Year after Surgery: and in 3 mos for completion- done October 17 2018 Then every 3 years at a minimum, based on findings. Please continue to see your primary care provider for all general health care recommended for a (man) (women) your age, including cancer screening tests. Any symptoms should be brought to the attention of your provider: 1. Anything that represents a brand new symptom; 2. Anything that represents a persistent symptom; 3. Anything you are worried about that might be related to the cancer coming back. Cancer survivors may experience issues with the areas listed below. If you have any concerns in these or other areas, please speak with your doctors or nurses to find out how you can get help with them: A number of lifestyle/behaviors can affect your ongoing health, including the risk for the cancer coming back or developing another cancer. Discuss these recommendations with your doctor or nurse: Resources you may be interested in: www.cancer.net Other: repeat colonoscopy due in 3 mos Prepared by: Janae Lezama RN Delivered on: 08/09/18 - This Survivorship Care Plan is a cancer treatment summary and follow-up plan is provided to you to keep with your health care records and to share with your primary care provider. - This summary is a brief record of major aspects of your cancer treatment. You can share your copywith any of your doctors or nurses. However, this is not a detailed or comprehensive record of yourcare.
--- OUTSIDE RECORDS SUMMARY | 2024-12-09 06:56 | XMS_ITS | CCD ---
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 Name Role Phone Marvin Cooley DO Primary Care Provider NAVJOT SHULTZ Referring Unavailable MARVIN COOLEY Primary Care Unavailable BALL, MARVIN Bean Primary Care Unavailable BALL, DR [...] Admitting Unavailable BALL, DR MIR Attending Unavailable Marvin Cooley Unavailable Marvin Cooley DO Primary Care Provider [phone] Geronimo Loaiza DO Attending Provider [phone] Geronimo Loaiza Admitting Unavailable Marvin Cooley Primary Care Unavailable Geronimo Loaiza Attending Unavailable Yasir, Marvin Primary Care Unavailable Geronimo Loaiza Attending Unavailable Geronimo Loaiza Admitting Unavailable Marvin Cooley DO Primary Care Provider [phone] Geronimo Loaiza DO Attending Provider [phone] Marvin Cooley DO Primary Care Provider [phone] Marvin Cooley DO Attending Provider [phone] Allergies Allergy Classification Reported Allergen(s) Allergy Type Date of Onset Reaction(s) Facility (6 sources) Penicillin; Translations: [PENICILLIN] Drug Allergy 06-28-2018 [facility] Medications Current Medications Medication Drug Class(es) Dates Sig (Normalized) Sig (Original) atorvastatin 10 mg oral tablet (20 sources) HMG-CoA Reductase Inhibitor Start: 07-14-2023 take 1 tablet by mouth once daily in the evening Atorvastatin 10 mg tablet Active 0 .ROUTE .COMPLEX July 14, 2023 12:55pm TAKE 1 TABLET BY MOUTH EVERY DAY IN THE EVENING Complies with drug therapy Start: 07-14-2023 End: 07-14-2023 take 1 tablet [...] Active losartan potassium 50 mg oral tablet (12 sources) Angiotensin 2 Receptor Guy Start: 11-27-2023 End: 06-12-2024 take 1 tablet by mouth once daily Losartan 50 mg tablet Active 50 MG PO Daily 90 90 June 12, 2024 8:33am Complies with drug therapy Start: 05-26-2023 take 1 tablet by jasper th every twenty-four hours Losartan Potassium 25 MG 1 tablet Orally Once a day for 30 days May, Active metFORMIN hydrochloride 500 mg oral tablet (20 sources) Biguanide Start: 07-14-2023 End: 08-07-2024 take 1 tablet by mouth once daily at breakfast Metformin 500 mg tablet Active 0 .ROUTE .COMPLEX August 07, 2024 6:46am TAKE 1 TABLET BY MOUTH EVERY DAY WITH BREAKFAST Complies with drug therapy Start: 07-14-2023 End: 07-14-2023 take 1 tablet by mouth once daily Metformin 500 mg tablet Discontinued 500 MG PO Daily July 14, [...] Onset: 06-15-2018 07-12-2018 Chronic Cancer of colon (16 sources) History of malignant neoplasm of colon; Translations: [Personal history of other malignant neoplasm of large intestine] Episodic Comment on above: Dx: 2028- s/p hemico lectomy Cancer of rectum and anus (1 source) Malignant tumor of rectosigmoid junction; Translations: [Malignant neoplasm of rectosigmoid junction] Chronic Diabetes mellitus with complications (17 sources) Type 2 diabetes mellitus; Translations: [Type 2 diabetes mellitus with hyperglycemia] Chronic Diabetes mellitus without complication (6 sources) Type 2 diabetes mellitus without complications; Translations: [Type 2 diabetes mellitus without complication] Onset: 03-16-2022 Chronic Disorders of lipid metabolism (19 sources) Pure hypercholesterolemia, unspecified; Translations: [Pure hypercholesterolemia] Onset: 03-19-2022 Chronic Essential hypertension (14 sources) Essential hypertension; Translations: [Essential (primary) hypertension] Chronic Genitourinary symptoms and ill-defined conditions (1 source) Nocturia Episodic Hyperplasia of prostate (18 sources) Benign prostatic hyperplasia; Translations: [Benign prostatic hyperplasia without lower urinary tract symptoms] Chronic Other and unspecified benign neoplasm (2 sources) History of polyp of colon; Translations: [Personal history of colonic polyps] Episodic Other non-traumatic joint disorders (7 sources) Pain in elbow; Translations: [Pain in right elbow] 05-06-2024 Episodic Other non-traumatic joint disorders (7 sources) Pain in right elbow; Translations: [Pain [...] conditions (not mental disorders or infectious disease) (4 sources) Encounter for screening for malignant neoplasm of prostate; Translations: [Screening for malignant neoplasms of prostate] Onset: 12-16-2021 11-27-2023 Episodic Residual codes; unclassified (3 sources) FH: Aortic aneurysm; Translations: [Family history of ischemic heart disease and other diseases of the circulatory system] 05-28-2024 Episodic Residual codes; unclassified (1 source) Family history of ischemic heart disease and other diseases of the circulatory system; Translations: [Family history of other cardiovascular diseases] 05-28-2024 Episodic Sprains and strains (20 sources) Tear of distal tendon of biceps [...] Test Name Value Interpretation Reference Range Facility Glucose mean value [Mass/vol ume] in Blood Estimated from glycated hemoglobinon 05-30-2024 Average glucose Estimated from glycated hemoglobin (Bld) [Mass/Vol] Glucose mean value [Mass/volume] in Blood Estimated from glycated hemoglobin [facility] Hemoglobin A1c percentageon 05-30-2024 HbA1c (Bld) [Mass fraction] Hemoglobin A1c percentage High 4.5-6.2 [facility] Comment on above: ADA RECOMMENDED LIMI T 4.0 - 6.0ADA THERAPEUTIC TARGET < 7.0ACTION SUGGESTED> 7.0 MR elbow RT wo conon 025 MR elbow RT wo con [facility] [place] [address] [place] [address] MRI Report Signed Patient: Hector Murry MR#: [id number] : 1955 Acct:[id number] Age/Sex: 69 / M ADM Date: 05/08/24 Loc: [facility] Room: Type: [facility] Attending Dr: Geronimo Loaiza DO Copies to: [...] Arvind Veliz M.D.05/08/2024 3:17 PM Dictation Location: [place] [address] Transcribed By: ARNOLD 05/08/24 1517 Dictated By: Arvind Veliz II, MD 05/08/24 1503 Signed By: 05/08/24 1517 Normal [facility] Magnetic resonance imaging r eportOrdered By: Arvind Veliz on 05-08-2024 Study report [facility] [place] [address] [place] [address] MRI Report Signed Patient: Hector Murry MR#: [id number] : 1955 Acct:[id number] Age/Sex: 69 / M ADM Date: 5 Loc: [facility] Room: Type: [facility] Attending Dr: Geronimo Loaiza DO Copies to: [...] Arvind Veliz M.D.05/08/2024 3:17 PM Dictation Location: [place] [address] Transcribed By: ARNOLD 05/08/24 1517 Dictated By: Arvind Veliz II, MD 05/08/24 1502 Signed By: 05/08/24 1517 [facility] Work Phone: X-ray reportOrdered By: Gopi De La Vega on 05-07-2024 Study report [facility] [address] [place] [address] XRay Report Signed Patient: Hector Murry MR#: [id number] : 1955 Acct:[id number] Age/Sex: 69 / M ADM Date: 5 Loc: [facility] Room: Type: [facility] Attending Dr: Geronimo Loaiza DO Copies to: [...] dictated by: Navjot De La Vega Jr., D.OSilva05/07/2024 10:21 AM Dictation Location: RADIO-PC-22 Transcribed By: ARNOLD 05/07/24 1021 Dictated By: Navjot De La Vega Jr, DO 05/07/24 1019 Signed By: 05/07/24 1021 [facility] XR elbow RT min 3V*on 2024 XR elbow RT min 3V* [facility] [address] [place] [address] XRay Report Signed Patient: Hector Murry MR#: [id number] : 1955 Acct:[id number] Age/Sex: 69 / M ADM Date: 05/07/24 Loc: [facility] Room: Type: [facility] Attending Dr: Geronimo Loaiza DO Copies to: [...] Vega Jr., D.O.05/07/2024 10:21 AM Dictation Location: RADIO-PC-22 Transcribed By: ARNOLD 05/07/24 1021 Dictated By: Navjot De La Vega Jr, DO 05/07/24 1019 Signed By: 05/07/24 1021 Normal [facility] DIRECT LDLon 03-16-2022 Cholesterol in LDL [Mass/Vol] 107 mg/dL Normal [facility] Comment on above: Performed By: #### A , DLDL #### [facility] [address] [place] [address] [address] Ranjith Logan DLDL NORMAL SEE BELOW Normal [facility] Comment on above: Result Comment: <100 mg/dl OPTIMAL 100 - 129 mg/dl NEAR OR ABOVE OPTIMAL 130 - 159 mg/dl BORDERLINE HIGH 160 - 189 mg/dl HIGH >190 mg/dl VERY HIGH Performed By: #### A LT DLDL #### [facility] [address] [place] [address] Dr. Ranjith Logan GLYCOHEMOGLOBIN A1Con 2021 ADA RECOMMENDATION SEE BELOW Normal [facility] Comment on above: Result Comment: ADA RECOMMENDED LIMIT 4.0 - 6.0 ADA THERAPEUTIC TARGET < 7.0 ACTION SUGGESTED > 7.0 Performed By: #### A 1C #### [facility] [address] [place] [address] [address] Ranjith Logan Glucose [Mass/Vol] 146 mg/dL Normal [facility] Comment on above: Performed By: #### A 1C #### [facility] [address] [place] [address] Dr. Ranjith Logan HbA1c (Bld) [Mass fraction] 6.7 % Critically high 4.5-6.2 [facility] Comment on above: Performed By: #### A 1C #### [facility] [address] [place] [address] Dr. Ranjith Logan SGPTon 03-16-2022 ALT [Catalytic activity/Vol] 51 U/L Normal 16-63 [facility] Comment on above: Performed By: #### A LT DLDL #### [facility] [address] [place] [address] Dr. Ranjith Logan CEA SerPl-mCncon 02-16-2022 Carcinoembryonic Ag [Mass/Vol] 3.1 ng/mL High <=2.9 [facility] Comment on above: Order Comment: Speci men Type: BLOOD SPECIMEN Ordering Facility: [facility] Address: [address] [place] [id number] Result Comment: Carc inoembryonic antigen test is used as an aid in monitoring response to treatment or recurrence in patients with established colorectal, breast, lung, prostatic, pancreatic, and ovarian carcinomas. Clinical correlation is required. The Carcinoembryonic antigen test was performed using the [employer] DXI paramagnetic particle chemiluminescent immunoassay method. Results obtained with different assay methods or kits cannot be used interchangeably. Performed By: #### 2 039-6 #### [facility] CLIA [id number] [address] [place] [address] [place] CBC AUTO DIFFon 12-15-2021 BASO # 0.1 103/ul Normal 0.0-0.1 [facility] Comment on above: Performed By: #### C BC #### [facility] [address] [place] [address] [address] aRnjith Logan Basophils/100 WBC (Bld) 1.6 % Normal 0.2-2.0 [facility] Comment on above: Performed By: #### C BC #### [facility] [address] [place] [address] Dr. Ranjith Logan EO # 0.4 103/ul Normal 0.0-0.7 [facility] Comment on above: Performed By: #### C BC #### [facility] [address] [place] [address] Dr. Ranjith Logan Eosinophils/100 WBC (Bld) 5.3 % Normal 0.9-7.0 [facility] Comment on above: Performed By: #### C BC #### [facility] [address] [place] [address] Dr. Ranjith Logan Erythrocyte distribution width (RBC) [Ratio] 13.1 % Normal 11.0-15.0 [facility] Comment on above: Performed By: #### C BC #### [facility] [address] [place] [address] Dr. Ranjith Logan Hematocrit (Bld) [Volume fraction] 43.0 % Normal 42.0-54.0 [facility] Comment on above: Performed By: #### C BC #### [facility] [address] [place] [address] Dr. Ranjith Logan Hemoglobin (Bld) [Mass/Vol] 14.5 g/dL Normal 14.0-18.0 [facility] Comment on above: Performed By: #### C BC #### [facility] [address] [place] [address] Dr. Ranjith Logan IG # 0.02 10e3/ul Normal 0.00-0.03 [facility] Comment on above: Performed By: #### C BC #### [facility] [address] [place] [address] Dr. Ranjith Logan IG % 0.3 % Normal 0.0-0.5 [facility] Comment on above: Performed By: #### C BC #### [facility] [address] [place] [address] Dr. Rnajith Logan LYMPH # 2.3 103/ul Normal 1.2-3.8 [facility] Comment on above: Performed By: #### C BC #### [facility] [address] [place] [address] Dr. Ranjith Logan Lymphocytes/100 WBC (Bld) 33.3 % Normal 20.5-60.0 [facility] Comment on above: Performed By: #### C BC #### [facility] [address] [place] [address] Dr. Ranjith Logan MANUAL DIFF REQ NO Normal [facility] Comment on above: Performed By: #### C BC #### [facility] [address] [place] [address] Dr. Ranjith Logan MCH (RBC) [Entitic mass] 30.5 pg Normal 25.9-34.0 [facility] Comment on above: Performed By: #### C BC #### [facility] [address] [place] [address] Dr. Ranjith Logan MCHC (RBC) [Mass/Vol] 33.7 g/dL Normal 29.9-35.2 [facility] Comment on above: Performed By: #### C BC #### [facility] [address] [place] [address] Dr. Ranjith Logan MCV (RBC) [Entitic vol] 90.3 fL Normal 80.0-94.0 [facility] Comment on above: Performed By: #### C BC #### [facility] [address] [place] [address] Dr. Ranjith Logan MONO # 0.6 103/ul Normal 0.3-0.8 [facility] Comment on above: Performed By: #### C BC #### [facility] [address] [place] [address] [address] Ranjith Logan Monocytes/100 WBC (Bld) 8.6 % Normal 1.7-12.0 [facility] Comment on above: Performed By: #### C BC #### [facility] [address] [place] [address] Dr. Ranjith Logan NEUT # 3.4 103/ul Normal 1.4-6.5 [facility] Comment on above: Performed By: #### C BC #### [facility] [address] [place] [address] Dr. Ranjith Logan Neutrophils/100 WBC (Bld) 50.9 % Normal 43.0-75.0 [facility] Comment on above: Performed By: #### C BC #### [facility] [address] [place] [address] Dr. Ranjith Logan Platelet mean volume (Bld) [Entitic vol] 10.0 fL Normal 9.5-13.5 [facility] Comment on above: Performed By: #### C BC #### [facility] [address] [place] [address] Dr. Ranjith Logan PLT 245 103/ul Normal 150-450 [facility] Comment on above: Performed By: #### C BC #### [facility] [address] [place] [address] Dr. Ranjith Logan RBC 4.76 106/ul Normal 4.70-6.10 [facility] Comment on above: Performed By: #### C BC #### [facility] [address] [place] [address] Dr. Ranjith Logan WBC 6.8 103/ul Normal 4.0-11.0 [facility] Comment on above: Performed By: #### C BC #### [facility] [address] [place] [address] Dr. Ranjith Logan GLYCOHEMOGLOBIN A1Con 2021 ADA RECOMMENDATION SEE BELOW Normal [facility] Comment on above: Result Comment: ADA RECOMMENDED LIMIT 4.0 - 6.0 ADA THERAPEUTIC TARGET < 7.0 ACTION SUGGESTED > 7.0 Performed By: #### A 1C #### [facility] [address] [place] [address] [address] Ranjith Logan Glucose [Mass/Vol] 140 mg/dL Normal [facility] Comment on above: Performed By: #### A 1C #### [facility] [address] [place] [address] [address] Ranjith Logan HbA1c (Bld) [Mass fraction] 6.5 % Critically high 4.5-6.2 [facility] Comment on above: Performed By: #### A 1C #### [facility] [address] [place] [address] [address] Ranjith Logan LIPID PROFILEon 12-15-2021 CHOL-HDL RATIO NORM SEE BELOW Normal [facility] Comment on above: Result Comment: 3.3 - 4.4 LOW RISK 4.4 - 7.1 AVERAGE RISK 7.1 - 11.0 MODERATE RISK >11.0 HIGH RISK Performed By: #### L IPID, CMP #### [facility] [address] [place] [address] Dr. Ranjith Logan Cholesterol [Mass/Vol] 214 mg/dL Critically high <=200 [facility] Comment on above: Performed By: #### L IPID, CMP #### [facility] [address] [place] [address] Dr. Ranjith Logan Cholesterol in HDL [Mass/Vol] 60 mg/dL Normal 40-60 [facility] Comment on above: Performed By: #### L IPID, CMP #### [facility] [address] [place] [address] Dr. Ranjith Logan Cholesterol in LDL [Mass/Vol] 133.6 mg/dL Normal [facility] Comment on above: Performed By: #### L IPID, CMP #### [facility] [address] [place] [address] Dr. Ranjith Logan Cholesterol.total/Ch olesterol in HDL [Mass ratio] 3.6 {ratio} Normal [facility] Comment on above: Performed By: #### L IPID, CMP #### [facility] [address] [address] [address] Ranjith Logan HDL NORMAL > or = 60 mg/dl - LO W CARDIOVASCULAR RISK <40 mg/dl - HIGH CARDIOVASCULAR RISK Normal [facility] Comment on above: Performed By: #### L IPID, CMP #### [facility] [address] [place] [address] Dr. Ranjith Logan LDL CALC NORMAL SEE BELOW Normal [facility] Comment on above: Result Comment: <100 mg/dl OPTIMAL 100 - 129 mg/dl NEAR OR ABOVE OPTIMAL 130 - 159 mg/dl BORDERLINE HIGH 160 - 189 mg/dl HIGH >190 mg/dl VERY HIGH Performed By: #### L IPID, CMP #### [facility] [address] [place] [address] Dr. Ranjith Logan Triglyceride [Mass/Vol] 102 mg/dL Normal <=150 [facility] Comment on above: Performed By: #### L IPID, CMP #### [facility] [address] [place] [address] Dr. Ranjith Logan VLDL CALC 20.4 mg/dL Normal [facility] Comment on above: Performed By: #### L IPID, CMP #### [facility] [address] [place] [address] Dr. Ranjith Logan PROF 14(COMP METB)on 022 Albumin [Mass/Vol] 3.6 g/dL Normal 3.4-5.0 [facility] Comment on above: Performed By: #### L IPID, CMP #### [facility] [address] [place] [address] Dr. Ranjith Logan Albumin/Globulin [Mass ratio] 1.0 {ratio} Normal [facility] Comment on above: Performed By: #### L IPID, CMP #### [facility] [address] [place] [address] Dr. Ranjith Logan ALP [Catalytic activity/Vol] 68 U/L Normal 46-116 [facility] Comment on above: Performed By: #### L IPID, CMP #### [facility] [address] [place] [address] Dr. Ranjith Logan ALT [Catalytic activity/Vol] 39 U/L Normal 16-63 [facility] Comment on above: Performed By: #### L IPID, CMP #### [facility] [address] [place] [address] Dr. Ranjith Logan Anion gap [Moles/Vol] 9.8 mmol/L Normal [facility] Comment on above: Performed By: #### L IPID, CMP #### [facility] [address] [place] [address] Dr. Ranjith Logan AST [Catalytic activity/Vol] 20 U/L Normal 15-37 [facility] Comment on above: Performed By: #### L IPID, CMP #### [facility] [address] [place] [address] Dr. Ranjith Logan Bilirubin [Mass/Vol] 0.7 mg/dL Normal 0.2-1.0 [facility] Comment on above: Performed By: #### L IPID, CMP #### [facility] [address] [place] [address] Dr. Ranjith Logan Calcium [Mass/Vol] 8.8 mg/dL Normal 8.5-10.1 [facility] Comment on above: Performed By: #### L IPID, CMP #### [facility] [address] [place] [address] Dr. Ranjith Logan Chloride [Moles/Vol] 103 mmol/L Normal 98-107 [facility] Comment on above: Performed By: #### L IPID, CMP #### [facility] [address] [place] [address] Dr. Ranjith Logan CO2 [Moles/Vol] 31.5 mmol/L Normal 21.0-32.0 [facility] Comment on above: Performed By: #### L IPID, CMP #### [facility] [address] [place] [address] Dr. Ranjith Logan Creatinine [Mass/Vol] 0.94 mg/dL Normal 0.70-1.30 [facility] Comment on above: Performed By: #### L IPID, CMP #### [facility] [address] [place] [address] Dr. Ranjith Logan EGFR-AF PORTUGUESE >60 Normal >=60 [facility] Comment on above: Performed By: #### L IPID, CMP #### [facility] [address] [place] [address] Dr. Ranjith Logan EGFR-NON AF PORTUGUESE >60 Normal >=60 [facility] Comment on above: Performed By: #### L IPID, CMP #### [facility] [address] [place] [address] Dr. Ranjith Logan Globulin (S) [Mass/Vol] 3.7 g/dL Normal [facility] Comment on above: Performed By: #### L IPID, CMP #### [facility] [address] [place] [address] Dr. Ranjith Logan Glucose [Mass/Vol] 147 mg/dL Critically high 74-106 [facility] Comment on above: Performed By: #### L IPID, CMP #### [facility] [address] [place] [address] Dr. Ranjith Logan Potassium [Moles/Vol] 4.3 mmol/L Normal 3.5-5.1 [facility] Comment on above: Performed By: #### L IPID, CMP #### [facility] [address] [place] [address] Dr. Ranjith Logan Protein [Mass/Vol] 7.3 g/dL Normal 6.4-8.2 [facility] Comment on above: Performed By: #### L IPID, CMP #### [facility] [address] [place] [address] Dr. Ranjith Logan Sodium [Moles/Vol] 140 mmol/L Normal 136-145 [facility] Comment on above: Performed By: #### L IPID, CMP #### [facility] [address] [place] [address] Dr. Ranjith Logan Urea nitrogen [Mass/Vol] 8.0 mg/dL Normal 7.0-18.0 [facility] Comment on above: Performed By: #### L IPID, CMP #### [facility] [address] [place] [address] Dr. Ranjith Logan Urea nitrogen/Creatinine [Mass ratio] 8.5 mg/mg Normal [facility] Comment on above: Performed By: #### L IPID, [facility] #### [facility] [address] [address] [address] Ranjith Logan CEA SerPl-mCncon 07-28-2021 Carcinoembryonic Ag [Mass/Vol] 3.5 ng/mL High <=2.9 [facility] Comment on above: Order Comment: Speci men Type: BLOOD SPECIMEN Ordering Facility: [facility] Address: [address] [place] [address] Result Comment: Carc inoembryonic antigen test is used as an aid in monitoring response to treatment or recurrence in patients with established colorectal, breast, lung, prostatic, pancreatic, and ovarian carcinomas. Clinical correlation is required. The [employer] DXI 600/800 is used. Results obtained with different assay, methods or kits cannot be used interchangeably Performed By: #### 2 039-6 #### [facility] CLIA [id number] [address] [place] [address] CNPNon 07-23-2021 CNPN Telephone ([facility]) -------- HECTOR MURRY ([id number]) 1955 M Date Time Provider Department 07/23/21 NAVJOT SHULTZ [facility] During your visit today, we recorded the following information about you: Janae Lzeama RN 07/23/2021 9:45 AM Signed Call placed to patient re: cancer surveillance. No answer, left message and office contact number should wish to discuss Kaylene Romero ADM 07/23/2021 3:37 PM Signed Patient returned nurse call. 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 [facility] SARS-CoV-2 (COVID-19) RNA PANFILO+probe Ql (Unsp spec) Not detected Normal NOT DETECTED [facility] Comment on above: Result Comment: This test is not yet approved or cleared by the [place] FDA. When there are no FDA-approved or cleared tests available, and other criteria are met, FDA can make tests available under an emergency access mechanism called an Emergency Use Authorization (EUA). The EUA for this test is supported by the [place] of Health and Human Service's (HHS's) declaration [...] consistent with SARS-CoV-2. Performed By: #### C [facility] #### [facility] [address] [place] [address] Dr. Ranjith [place] POSTPROC EVALon 020 PADMINI POSTPROC EVAL HNO ID: [id number] Author: Keon Fairchild Service: ? Author Type: Anesthesiologist Type: Anesthesia Postprocedure Evaluation Filed: 06/25/2019 12:38 PM Note Text: POST ANESTHESIA EVALUATION NOTE : 1955 Procedure Summary Date: 06/25/19 Room / Location: [facility] OR11 / [facility] OR Anesthesia Start: 947 [...] June 25, 2019 TIME: 12:38 PM CSN: [id number] [facility] ANES PRE-OPon 06-25-2019 ANES PRE-OP HNO ID: [id number] Author: Keon Fairchild Service: ? Author Type: [...] June 25, 2019 TIME: 9:25 AM CSN: [id number] Normal [facility] HISTORY PHYSICALon 0 HISTORY PHYSICAL HNO ID: [id number] Author: Sanam Ace Service: General Surgery Author [...] June 25, 2019 TIME: 9:39 AM PAGER: [phone] Normal [facility] OPERATIVE NOon 06-25-2019 OPERATIVE NO HNO ID: [id number] Author: Kassidy Ibarra Service: General Surgery Author Type: Physician Type: Operative Report Filed: 06/26/2019 8:46 AM Note Text: [facility] - Operative Report HECTOR MURRY : 1955 AGE: 64. SEX: M PATIENT TYPE: A HOSP [facility] – [place]: [facility] ATTENDING PHYSICIAN: Kassidy Ibarra M.D. CSN NUMBER: [id number] DATE OF SURGERY/PROCEDURE: 06/25/2019 INCISION/PROCEDURE START TIME: 1015 hours. INCISION CLOSE/PROCEDURE END TIME: 1113 hours. PREOPERATIVE DIAGNOSIS: Incisional hernia. POSTOPERATIVE DIAGNOSIS: Incisional hernia plus omental implant. SURGEON: Kassidy Ibarra M.D. TECHNOLOGY APPLICATIONS CONSULTANT: Dr. Sanam Ace SURGERY/PROCEDURE: Laparoscopic repair of [...] through the entire operation. Kassidy Ibarra M.D. DA:[id number] /[id number] [facility] PT EDon 06-25-2019 PT ED HNO ID: [id number] Author: Carolina HerringRn) MARGARET Norris Service: Nursing [...] PROVIDED TO PATIENT: Post op discharge instructions. [facility] PT ED HNO ID: [id number] Author: Chacha (Rn) MARGARET Cortez Service: Nursing Author Type: Registered [...] None Electronically Signed By: Chacha Cortez RN [facility] SURGICAL PATHOLOGYon 020 SURGICAL PATHOLOGY Specimen originated from [facility] Specimen #: [id number] Submitting Physician: Kassidy Ibarra M.D. __ FINAL DIAGNOSIS Omental implant, excision - Fat necrosis, chronic inflammation, and focal dystrophic calcifications. - No malignancy identified. SDB/OH/kr 06/27/2019 Mason Pereira M.D. (Electronic Signature) SPECIMEN SUBMITTED A: OMENTAL IMPLANT CLINICAL DATA INCISIONAL HERNIA; HISTORY OF COLON CANCER; LAPAROSCOPIC VENTRAL HERNIA REPAIR INTRAOPERATIVE CONSULT DIAGNOSIS FSA1: Negative for carcinoma. (Dr. Greer) Intraoperative diagnosis performed at [facility], [address] [place] [address] GROSS DESCRIPTION A. Received fresh for frozen section designated omental implant is a woody yellow nodule that measures 1.5 x 1 x 1 cm. Sectioning the nodule reveals necrotic cut surfaces. The specimen is entirely as follows: A1 frozen section A2-A3 remainder of specimen. WE/patricia 06/25/2019 Gross examination performed at [facility], [address] [place] [address] Date of Report: 06/27/2019 Date of Procedure: 06/25/2019 Date of Receipt: 06/25/2019 Submitted by: Kassidy Ibarra M.D. Location: [facility] Diagnostic interpretation performed at [facility], [address] [place] [address]. CLIA Number: [id number] Normal [facility] NURSING PROGon 06-19-2019 NURSING PROG HNO ID: [id number] Author: Sola (Rn) MARGARET Mix Service: General Surgery Author Type: Registered Nurse Type: Nursing Progress Note Filed: 06/19/2019 9:08 AM Note Text: PACC Nurse Progress Note History AND Physical: PACC Visit Date: 06-14-19 Original HANDP Date: N/A ED visit Date: N/A Outside HANDP Scanned Date: N/A Labs Within Last 6 Months: N/A Imaging Within Last 12 Months: CT Scan 05-20-19 Results in [facility] Cardiac Testing: EKG in last 12 Months: Yes: Date: 07-05-18, Comment: Results scanned in [facility] Last Menstrual Period: LMP Date: N/A Postmenopausal >1yr: N/A, S/P Hysterectomy: N/A BMI Percentile (PEDS): N/A Risk Assessment: N/A Anesthesia Review: N/A Narrative: N/A Pre-op Considerations: N/A Chart Check: COMPLETED Sola Mix RN June 19, 2019 9:06 AM [facility] HOSPon 05-22-2019 HOSP Patient:Anastasiya Murry MRN: [...] notes entered within the past 30 days [facility] Basic Metabolic Panlon 07-12 Anion gap [Moles/Vol] 13 mmol/L Normal - [facility] Comment on above: Performed By: #### C BCDIF, BMP ####[facility] [place], [place] [phone] Calcium [Mass/Vol] 8.7 mg/dL Normal 8.5-10.5 [facility] Comment on above: Performed By: #### C BCDIF, BMP ####[place] [phone] Chloride [Moles/Vol] 105 mmol/L Normal 98-110 [facility] Comment on above: Result Comment: Revi ewed Performed By: #### C BCDIF, BMP ####[place] [phone] CO2 [Moles/Vol] 24 mmol/L Normal 23-32 [facility] Comment on above: Performed By: #### C BCDIF, BMP ####[place] [phone] Creatinine [Mass/Vol] 0.69 mg/dL Low 0.70-1.40 [facility] Comment on above: Performed By: #### C BCDIF, BMP ####[place] [phone] eGFR- Amer. >60 Normal >60 [facility] Comment on above: Performed By: #### C BCDIF, BMP ####[place] [phone] GFR/1.73 sq M predicted among non-blacks MDRD (S/P/Bld) [Vol rate/Area] mL/min/{1.73_m2} Normal >60 [facility] Comment on above: Performed By: #### C BCDIF, BMP ####[place] [phone] Glucose [Mass/Vol] 146 mg/dL High 65-100 [facility] Comment on above: Performed By: #### C BCDIF, BMP ####[place] [phone] Potassium [Moles/Vol] 4.0 mmol/L Normal 3.5-5.0 [facility] Comment on above: Performed By: #### C BCDIF, BMP ####[place] [phone] Sodium [Moles/Vol] 142 mmol/L Normal 135-146 [facility] Comment on above: Result Comment: Revi ewed Performed By: #### C MELF, BMP ####[place] [phone] Urea nitrogen [Mass/Vol] 6 mg/dL Low 10- [facility] Comment on above: Performed By: #### C MELF, BMP ####[place] [phone] CBC and Differentialon 07-12 Abs Baso 0.03 k/uL Normal <0.11 [facility] Comment on above: Performed By: #### C VILMA, BMP ####[phone] Abs Burke 0.87 k/uL High <0.87 [facility] Comment on above: Performed By: #### C MELF, BMP ####[place] [phone] Abs Neut 7.20 k/uL Normal 1.45-7.50 [facility] Comment on above: Performed By: #### C MELF, BMP ####[place] [phone] Basophils/100 WBC (Bld) 0.3 % Normal [facility] Comment on above: Performed By: #### C BCDIF, BMP ####[place] [phone] DTYPE Auto Diff Normal [facility] Comment on above: Performed By: #### C BCDIF, BMP ####[place] [phone] Eosinophils (Bld) [#/Vol] 0.14 10*3/uL Normal <0.46 [facility] Comment on above: Performed By: #### C BCDIF, BMP ####[place] [phone] Eosinophils/100 WBC (Bld) 1.4 % Normal [facility] Comment on above: Performed By: #### C BCDIF, BMP ####[place] [phone] Erythrocyte distribution width (RBC) [Ratio] 14.8 % Normal 11.5-15.0 [facility] Comment on above: Performed By: #### C BCDIF, BMP ####[place] [phone] Hematocrit (Bld) [Volume fraction] 36.8 % Low 39.0-51.0 [facility] Comment on above: Performed By: #### C BCDIF, BMP ####[place] [phone] Hemoglobin (Bld) [Mass/Vol] 11.8 g/dL Low 13.0-17.0 [facility] Comment on above: Performed By: #### C BCDIF, BMP ####[place] [phone] Lymphocytes (Bld) [#/Vol] 1.48 10*3/uL Normal 1.00-4.00 [facility] Comment on above: Performed By: #### C BCDIF, BMP ####[place] [phone] Lymphocytes/100 WBC (Bld) 15.2 % Normal [facility] Comment on above: Performed By: #### C BCDIF, BMP ####[place] [phone] MCH (RBC) [Entitic mass] 27.4 pG Normal 26.0-34.0 [facility] Comment on above: Performed By: #### C BCDIF, BMP ####[place] [phone] MCHC (RBC) [Mass/Vol] 32.1 g/dL Normal 30.5-36.0 [facility] Comment on above: Performed By: #### C BCDIF, BMP ####[place] [phone] MCV (RBC) [Entitic vol] 85.4 fL Normal 80.0-100.0 [facility] Comment on above: Performed By: #### C BCDIF, BMP ####[place] [phone] Monocytes/100 WBC (Bld) 9.0 % Normal [facility] Comment on above: Performed By: #### C BCDIF, BMP ####[place] [phone] Neutrophils/100 WBC (Bld) 74.1 % Normal [facility] Comment on above: Performed By: #### C BCDIF, BMP ####[place] [phone] Platelet mean volume (Bld) [Entitic vol] 10.7 fL Normal 9.0-12.7 [facility] Comment on above: Performed By: #### C BCDIF, BMP ####[place] [phone] Platelets (Bld) [#/Vol] 280 10*3/uL Normal 150-400 [facility] Comment on above: Performed By: #### C BCDIF, BMP ####[place] [phone] RBC (Bld) [#/Vol] 4.31 10*6/uL Normal 4.20-6.[address] [facility] Comment on above: Performed By: #### C BCDIF, BMP ####[place] [phone] WBC (Bld) [#/Vol] 9.72 10*3/uL Normal 3.70-11.[address] [facility] Comment on above: Performed By: #### C BCDIF, BMP ####[place] [phone] NURSING PROGon 07-12-2018 NURSING PROG HNO ID: [id number] Author: Radha (Rn) MARGARET Frost Service: ? Author Type: Registered Nurse Type: Nursing Progress Note Filed: 07/12/2018 5:38 PM Note Text: Nursing Progress Note Patient Name: Hector Murry Patient Location: [address]49 Daily Note: Pt AANDOx3. Lungs clear. Bowel [...] note was completed by: Radha Frost RN [facility] PLAN OF CAREon 07-12-2018 PLAN OF CARE HNO ID: [id number] Author: Shelbi Min ([employer]) Service: Pharmacy Author Type: Rounding Machine Tender Type: Plan of Care Filed: 07/16/2018 3:45 PM Note Text: NUCLEAR SPECTROSCOPIST BEDSIDE DELIVERY SURVEY 1. Patient to use [facility] Bedside Delivery - YES Insurance Information as follows: 2. Insurance card on file - YES 3. Credit card for payment - N/A [facility] PLAN OF CARE HNO ID: [id number] Author: Shelbi Min ([employer]) Service: Pharmacy Author Type: Rounding Machine Tender Type: Plan of Care Filed: 07/16/2018 3:45 [...] to the patient's discharge medications. Shelbi Min ([employer]) DCT Contact Info: [id number] [facility] PLAN OF CARE HNO ID: [id number] Author: Shelbi Min ([employer]) Service: Pharmacy Author Type: Rounding Machine Tender Type: Plan of Care Filed: 07/16/2018 3:46 [...] FLAGYL neomycin 500 mg tablet Shelbi Min ([employer]) PAGER: [phone] July 16, 2018 3:46 PM [facility] PROGRESSon 07-12-2018 PROGRESS HNO ID: [id number] Author: Mio Mortensen Service: Colorectal Author Type: Resident Type: Progress Notes Filed: 07/12/2018 7:49 AM Note Text: SURGERY PROGRESS NOTE Hector Murry [id number] Hospital Day: 3 2 Days Post-Op: laparoscopic sigmoidectomy with BLOCK CHOPPER HAND ASSESSMENT AND PLAN: 63 year old male [...] Surgery July 12, 2018 7:40 AM Normal [facility] Basic Metabolic Panlon 07-11 Anion gap [Moles/Vol] 13 mmol/L Normal 9-18 [facility] Comment on above: Performed By: #### T SCR30 #### [place] [id number] [place] [phone] Calcium [Mass/Vol] 8.6 mg/dL Normal 8.5-10.5 [facility] Comment on above: Performed By: #### T SCR30 #### [facility] [address] [place] [phone] Chloride [Moles/Vol] 99 mmol/L Normal 98-110 [facility] Comment on above: Performed By: #### T SCR30 #### [place] [phone] [place] [phone] CO2 [Moles/Vol] 23 mmol/L Normal 23-32 [facility] Comment on above: Performed By: #### T SCR30 #### [facility] [address] [place] [address] Creatinine [Mass/Vol] 0.81 mg/dL Normal 0.70-1.40 [facility] Comment on above: Performed By: #### T SCR30 #### [place] [phone] eGFR- Amer. >60 Normal >60 [facility] Comment on above: Performed By: #### T SCR30 #### [place] [phone] GFR/1.73 sq M predicted among non-blacks MDRD (S/P/Bld) [Vol rate/Area] mL/min/{1.73_m2} Normal >60 [facility] Comment on above: Performed By: #### T SCR30 #### [phone] Glucose [Mass/Vol] 277 mg/dL High 65-100 [facility] Comment on above: Performed By: #### T SCR30 #### [place] [phone] Potassium [Moles/Vol] 4.1 mmol/L Normal 3.5-5.0 [facility] Comment on above: Performed By: #### T SCR30 #### [phone] Sodium [Moles/Vol] 135 mmol/L Normal 135-146 [facility] Comment on above: Performed By: #### T SCR30 #### [phone] Urea nitrogen [Mass/Vol] 9 mg/dL Low 10-25 [facility] Comment on above: Performed By: #### T SCR30 #### [place] [phone] CASE MGT INIT ASSESon 2018 CASE MGT INIT ASSES HNO ID: [id number] Author: Teresa Webber ([place]) Service: Case Management Author Type: Vendor Management Associate Type: Care Mgt Initial Assessment Filed: 07/11/2018 4:00 PM Note Text: CARE MANAGEMENT: ASSESSMENT AND DISCHARGE PLAN SERVICE DATE: 07/11/2018 SERVICE TIME: 3:45 PRIMARY CARE PHYSICIAN: Marvin Cooley MD ADMISSION STATUS: Inpatient Needs Prior to Discharge: Ready for Discharge MEDICAL: Patient/Billing Clinician Stated Goals: To have reduction in symptoms To be cured/healed Health Insurance: [employer] BENEFITS . Health Issues Impacting Discharge Plan: Colon CA, had Laparoscopic sigmoidectomy with BLOCK CHOPPER HAND, mobilization of splenic flexure Last Admission Date: none Is this Within the Past 30 days? No Advance Directive: Current Advance Directive: Health Care Power of Production Associate In Chart: No Clip Coater Attempted to Assist with AD Completion: Yes [...] None Has the Patient Been in a Intermediate Facility in the Past 30 days? No SOCIAL: Living Arrangement: Home Lives With: Spouse Financial Resources: Retired Primary Contact: Extended Emergency Contact Information Primary Emergency Contact: Cristal Murry Address: [address] [place] Relation: Spouse Supportive: Yes Other Important [...] 11, 2018 TIME: 3:57 PM PAGER/CONTACT #: [phone] Normal [facility] CBC and Differentialon 07-11 Abs Baso <0.03 Normal <0.11 [facility] Comment on above: Performed By: #### T SCR30 #### [place] [address] Abs Burke 1.17 k/uL High <0.87 [facility] Comment on above: Performed By: #### T SCR30 #### [place] [address] Abs Neut 9.39 k/uL High 1.45-7.50 [facility] Comment on above: Performed By: #### T SCR30 #### [address] Basophils/100 WBC (Bld) 0.1 % Normal [facility] Comment on above: Performed By: #### T SCR30 #### [place] [address] DTYPE Auto Diff Normal [facility] Comment on above: Performed By: #### T SCR30 #### [place] [phone] Eosinophils (Bld) [#/Vol] 10*3/uL Normal <0.46 [facility] Comment on above: Performed By: #### T SCR30 #### [address] Eosinophils/100 WBC (Bld) 0.0 % Normal [facility] Comment on above: Performed By: #### T SCR30 #### [place] [phone] Erythrocyte distribution width (RBC) [Ratio] 14.4 % Normal 11.5-15.0 [facility] Comment on above: Performed By: #### T SCR30 #### [place] [phone] Hematocrit (Bld) [Volume fraction] 33.1 % Low 39.0-51.0 [facility] Comment on above: Performed By: #### T SCR30 #### [place] [phone] Hemoglobin (Bld) [Mass/Vol] 10.5 g/dL Low 13.0-17.0 [facility] Comment on above: Performed By: #### T SCR30 #### [place] [phone] Lymphocytes (Bld) [#/Vol] 1.00 10*3/uL Normal 1.00-4.00 [facility] Comment on above: Performed By: #### T SCR30 #### [place] [phone] Lymphocytes/100 WBC (Bld) 8.6 % Normal [facility] Comment on above: Performed By: #### T SCR30 #### [phone] MCH (RBC) [Entitic mass] 27.6 pG Normal 26.0-34.0 [facility] Comment on above: Performed By: #### T SCR30 #### [place] [phone] MCHC (RBC) [Mass/Vol] 31.7 g/dL Normal 30.5-36.0 [facility] Comment on above: Performed By: #### T SCR30 #### [place] [phone] MCV (RBC) [Entitic vol] 87.1 fL Normal 80.0-100.0 [facility] Comment on above: Performed By: #### T SCR30 #### [place] [phone] Monocytes/100 WBC (Bld) 10.1 % Normal [facility] Comment on above: Performed By: #### T SCR30 #### [place] [phone] Neutrophils/100 WBC (Bld) 81.2 % Normal [facility] Comment on above: Performed By: #### T SCR30 #### [phone] Platelet mean volume (Bld) [Entitic vol] 10.9 fL Normal 9.0-12.7 [facility] Comment on above: Performed By: #### T SCR30 #### [phone] Platelets (Bld) [#/Vol] 273 10*3/uL Normal 150-400 [facility] Comment on above: Performed By: #### T SCR30 #### [place] [phone] RBC (Bld) [#/Vol] 3.80 10*6/uL Low 4.20-6.[address] [facility] Comment on above: Performed By: #### T SCR30 #### [phone] WBC (Bld) [#/Vol] 11.57 10*3/uL High 3.70-11.00 [facility] Comment on above: Performed By: #### T SCR30 #### [phone] NURSING PROGon 07-11-2018 NURSING PROG HNO ID: [id number] Author: Radha (Rn) MARGARET Frost Service: ? Author Type: Registered Nurse Type: Nursing Progress Note Filed: 07/11/2018 12:43 PM Note Text: Nursing Progress Note Patient Name: Hector Murry Patient Location: [address]/CJ8I-28 Daily Note: Pt AANDOx3. Lungs clear. Bowel [...] note was completed by: Radha Frost RN [facility] PROGRESSon 07-11-2018 PROGRESS HNO ID: [id number] Author: Kg Dee (Fel) Service: Colorectal Author Type: Fellow Type: Progress Notes Filed: 07/11/2018 8:49 AM Note Text: COLORECTAL SURGERY POSTOP PROGRESS NOTE SERVICE DATE: 07/11/2018 SERVICE TIME: 6:45AM POD #1 lap sigmoidectomy with BLOCK CHOPPER HAND Subjective INTERVAL HPI and PERTINENT ROS: July, [...] 1738 -- 07/10/18 1745 pneumatic compression stockings (or,ms) 07/10/18 1745 activity - mobilize patient (or,ms) VTE Prophylaxis: VTE prophylaxis appropriate Reason for [...] 11, 2018 TIME: 8:47 AM PAGER/CONTACT #: [phone] [facility] PROGRESS HNO ID: [id number] Author: Madeline Yeung Service: General Surgery Author [...] male POD 0 s/p Laparoscopic sigmoidectomy with BLOCK CHOPPER HAND, mobilization of splenic flexure -routine post op care Ana Yeung MD General Surgery PGY-1 [facility] Pager: [phone], weekdays 6A-6P call center director pager: [phone], nights and weekends Date: 07/10/2018 Time: 10:58 PM [facility] ANES Bernadine 07-10-2018 ANES POST HNO ID: [id number] Author: Mason Herrmann Service: Anesthesiology Author Type: Anesthesiologist Type: Anesthesia PostOp Filed: 07/10/2018 4:28 PM Note Text: POST ANESTHESIA EVALUATION NOTE SERVICE DATE: 07/10/2018 SERVICE TIME: 1627 : 1955 Vitals: 07/10/18 1008 07/10/18 1554 [...] 10, 2018 TIME: 4:27 PM PAGER/CONTACT #: [facility] ANES PREOPon 07-10-2018 ANES PREOP HNO ID: [id number] Author: Antelmo Nicholson Service: Pain Management Author [...] Monitors Pain Management Plan: ROOT Protocol [facility] Chart Review ACTIVE PROBLEM LIST Malignant Neoplasm [...] to surgery Inpatient medications reviewed in [facility]. I have interviewed and examined the patient. [...] 10, 2018 TIME: 10:56 AM PAGER/CONTACT #: [facility] BRIEF OP NOTon 07-10-2018 BRIEF OP NOT HNO ID: [id number] Author: Mio Mortensen Service: Colorectal Author Type: Resident Type: Brief Op Note Filed: 07/10/2018 3:44 PM Note Text: BRIEF OP NOTE LOG ID: [id number] Surgery/Procedure Date: 07/10/2018 Incision/Procedure Start Time: 12:09 PM Incision Close/Procedure End Time: 3:40 PM Surgeon(s)/Proceduralist (s) and Drum Handler(s): Surgeon(s) and Role: * Navjot Shultz - Primary * Mio Mortensen - Resident - Assisting Procedure(s): Laparoscopic sigmoidectomy with BLOCK CHOPPER HAND, mobilization of splenic flexure Anesthesia: General Findings: Sigmoid tumor, negative leak test on sigmoidoscopy Estimated Blood Loss: 75 mls Specimens: sigmoid colon Complications: None Pre-Op/Pre-Procedure Diagnosis: Colon cancer Post-Op/Post-Procedure Diagnosis: Colon cancer (HCC) [C18.9] SIGNATURE: Mio Mortensen MD PATIENT NAME: Hector Murry DATE: July 10, 2018 TIME: 3:43 PM PAGER/CONTACT #: [phone] [facility] Confirm Blood Typeon 019 ABO/RH(D) Positive [facility] Comment on above: Performed By: #### C ONABO #### [place] [id number] [place] [address] HISTORY PHYSICALon 9 HISTORY PHYSICAL HNO ID: [id number] Author: Mio Mortensen Service: Colorectal Author Type: [...] July 10, 2018 TIME: 11:06 AM PAGER: [facility] NURSING PROGon 07-10-2018 NURSING PROG HNO ID: [id number] Author: Ike HerringRn) MARGARET Aguirre Service: ? Author Type: Registered Nurse Type: Nursing Progress Note Filed: 07/10/2018 7:14 PM Note Text: Nursing Progress Note Patient Name: Hector Murry Patient Location: / Daily Note:07/10/18 1830- Patient arrived to room [...] note was completed by: Ike Aguirre RN [facility] NURSING PROG HNO ID: [id number] Author: Owen HerringRn) MARGARET Lopez Service: Nursing Author Type: Registered Nurse Type: Nursing Progress Note Filed: 07/10/2018 2:10 PM Note Text: Nursing Progress Note Patient Name: Hector Murry Patient Location: [facility] OR POOL/[facility] OR POOL Daily Note: 12:20 PMUpdated family via pager system. 1:13 PMUpdated family via pager system. 2:10 PMUpdated family via pager system. This note was completed by: Owen Lopez RN Normal [facility] OPERATIVE NOon 07-10-2018 OPERATIVE NO HNO ID: [id number] Author: Navjot Shultz Service: Colorectal Author Type: Physician Type: Operative Report Filed: 07/12/2018 8:05 AM Note Text: [facility] - Operative Report HECTOR MURRY : 1955 AGE: 63. SEX: M PATIENT TYPE: I HOSP SVC: COR LOCATION: [facility] ATTENDING PHYSICIAN: Navjot Shultz M.D. CSN NUMBER: [id number] DATE OF SURGERY/PROCEDURE: 07/10/2018 INCISION/PROCEDURE START TIME: 1209 hours INCISION CLOSE/PROCEDURE END TIME: 1540 hours. PREOPERATIVE DIAGNOSIS: Sigmoid colon cancer. POSTOPERATIVE DIAGNOSIS: Sigmoid colon cancer. SURGEON: Navjot Shultz M.D. TECHNOLOGY APPLICATIONS CONSULTANT: Dr. Rodrick Hernández. SURGERY/PROCEDURE: Laparoscopic sigmoid colectomy [...] in the umbilicus was then closed with [id number] #1 PDS. All the incisions were copiously irrigated and suctioned. We then closed the skin with 4-0 Monocryl and adhesive skin glue. The patient was then awoken from anesthesia and taken to recovery room. Navjot Shultz M.D. SATINDER:[id number] /[id number] [facility] PT EDon 07-10-2018 PT ED HNO ID: [id number] Author: Amaya (Rn) MARGARET Juan Service: Nursing [...] None Electronically Signed By: Amaya Juan RN [facility] SURGICAL PATHOLOGYon 019 SURGICAL PATHOLOGY ADDITIONAL PROCEDURES PRESENT Specimen originated from [facility] Specimen #: [id number] Submitting Physician: NAVJOT SHULTZ __ FINAL DIAGNOSIS [...] tests have been determined by [facility]'s [facility] Pathology and Laboratory Medicine [place] ([facility]) in a manner consistent with CLIA requirements. One or more of these tests have not been cleared or approved by the FDA. [facility] is regulated under CLIA as qualified [...] performed with attendance of rectal cancer multidisciplinary sports team manager: Yes Ancillary Studies: Immunohistochemistry Studies for Mismatch [...] repair (MMR) status: Proficient (microsatellite stable) Specimen: [id number] Block: A9 Comment: Intact expression of MMR [...] blockade than mismatch repair proficient tumors (NEJM 2015;372:6943-71 and Science 2017 Nov 11;357(8135):409-413). Subsequently, pembrolizumab was FDA-approved for the treatment [...] call the [facility] for [facility] at . Mismatch Repair Protein Immunohistochemistry Results (Loss or Normal): MLH1: Normal PMS2: Normal MSH2: Normal MSH6: Normal MLH1 promoter methylation assay ordered: No Laboratory Developed Test (LDT) Disclaimer: Positive and negative controls stain appropriately. Performance characteristics of immunohistochemical, immunofluorescent and chromogenic in-situ hybridization tests have been determined by [facility]'s [facility] [place] ([facility]) in a manner consistent with CLIA requirements. One or more of these tests have not been cleared or approved by the FDA. [facility] is regulated under CLIA as qualified to perform high-complexity testing. These tests are used for clinical purposes. They should not be regarded as investigational or for research. [facility]07-19-2018 Procedure Pathologist: Papito Reilly M.D., Ph.D. Electronic [...] up to 1.4 cm in greatest dimension. Billing Clinician sections are submitted as follows: A1 perpendicular [...] submitted. BF/kr 07/11/2018 Gross examination performed at [place] [address] Date of Report: 07/18/2018 Date of Procedure: 07/10/2018 Date of Receipt: 07/11/2018 Submitted by: NAVJOT SHULTZ Location: [id number] Diagnostic [place] [address]. CLIA Number: [id number] Normal [facility] Urinalysison 07-10-2018 Bilirubin, Urine Negative Normal Negative [facility] Comment on above: Performed By: #### T SCR30 #### [place] [phone] Cast SEE COMMENT Critically abnormal 0 [facility] Comment on above: Result Comment: 5-10 Hyaline Cast Performed By: #### T SCR30 #### [place] [phone] Clarity (U) Cloudy Critically abnormal Clear [facility] Comment on above: Performed By: #### T SCR30 #### [phone] Color (U) Yellow Normal Yellow [facility] Comment on above: Performed By: #### T SCR30 #### [place] [phone] Comments SEE COMMENT Normal [facility] Comment on above: Result Comment: Micr oscopic Examination Performed Performed By: #### T SCR30 #### [phone] Crystals LM Nom (Urine sed) SEE COMMENT Critically abnormal 0 [facility] Comment on above: Result Comment: Many Amorphous Performed By: #### T SCR30 #### [phone] Glucose Ql (U) Trace Critically abnormal Negative [facility] Comment on above: Performed By: #### T SCR30 #### [place] [phone] Hemoglobin/Blood,Ur Negative Normal Negative [facility] Comment on above: Performed By: #### T SCR30 #### [place] [phone] Ketones Ql (U) Trace Critically abnormal [facility] Comment on above: Performed By: #### T SCR30 #### [place] [phone] Leukest Trace Critically abnormal [facility] Comment on above: Performed By: #### T SCR30 #### [place] [phone] Mucus Ql (Urine sed) Present Normal [facility] Comment on above: Performed By: #### T SCR30 #### [place] [phone] Nitrite Ql (U) Negative Normal [facility] Comment on above: Performed By: #### T SCR30 #### [address] pH (Bld) 5.0 Normal 5.0-8.0 [facility] Comment on above: Performed By: #### T SCR30 #### [address] Protein (U) [Mass/Vol] 30 mg/dL Critically abnormal [facility] Comment on above: Performed By: #### T SCR30 #### [place] [phone] RBC (U) [#/Vol] 0-5 Critically abnormal [facility] Comment on above: Performed By: #### T SCR30 #### [place] [phone] Specific [place], Ur 1.028 Normal 1.005-1.030 [facility] Comment on above: Performed By: #### T SCR30 #### [place] [id number] [place] [address] Urobilinogen Qn (U) <2.0 Normal <2.[address] [facility] Comment on above: Performed By: #### T SCR30 #### [place] [address] WBC (Bld) [#/Vol] 0-5 Critically abnormal Negative [facility] Comment on above: Performed By: #### T SCR30 #### [place] [address] Urine Cultureon 07-10-2018 Bacteria identified Cx Nom (U) Sp. Request/Comment: - Specimen received in preservative Culture Result - No growth (<1,000 CFU/ml) [facility] Comment on above: Performed By: #### U RCUL ####[place] [phone] [phone] NURSING PROGon 07-09-2018 NURSING PROG HNO ID: [id number] Author: Sana HerringRn) MARGARET Romo Service: Nursing Author Type: Registered Nurse Type: Nursing Progress Note Filed: 07/09/2018 9:22 AM Note Text: Addendum: CEA/ Confirmed EKG results in epic. reiciusRN [facility] NURSING PROGon 07-06-2018 NURSING PROG HNO ID: [id number] Author: Joelle (Rn) Vasquez RN Service: ? Author Type: Registered Nurse Type: Nursing Progress Note Filed: 07/06/2018 9:59 AM Note Text: Addendum: CBC, CMP, and TANDS within acceptable limits. CEA and EKG pending. Joelle Ovalle RN [facility] NURSING PROGon 07-05-2018 NURSING PROG HNO ID: [id number] Author: Sola HerringRn) Dominguez RN Service: General Surgery Author Type: Registered Nurse Type: Nursing Progress Note Filed: 07/05/2018 1:38 PM Note Text: PACC Nurse Progress Note History AND Physical: PACC Visit Date: 07-05-18 Original HANDP Date: N/A ED visit Date: N/A Outside HANDP Scanned Date: N/A Labs Within Last 6 Months: CBC: 07-05-18 BMP/CMP: Date 07-05-18 TYPE AND SCREEN: [...] Mix RN July 05, 2018 1:37 PM [facility] Type and SCR (30D)on 019 ABO/RH(D) Positive Normal [facility] Comment on above: Performed By: #### T SCR30 #### [facility] [address] [place] [address] HOSPon 06-28-2018 HOSP Patient:Anastasiya Murry MRN: Height:6' [...] 39.6 % 07/05/2018 51.0 39.0 Progress Notes ([facility]): Navjot Shultz MD 06/30/2018 2:28 PM Signed [...] fevers. Neuro: No history of TIA's, stroke, DOCUMENT CONTROL MANAGER tumor, impaired sensorium, hemiplegia, paraplegia or quadraplegia. No neurological symptoms or problems. Respiratory: No history of current cough or dyspnea, or pneumonia in the past 6 weeks. No history of respiratory/pulmonary symptoms or problems Cardiovascular: No history of HTN requiring medication, no history of angina, CHF, LA, cardiac surgery or stents. Denies rest pain, [...] 06/28/18 TIME: 8:06 AM Previous Version Normal [facility] Vital Signs Date Time Vital Sign Value Performing Clinician Facility 11-28-2024 09:56-0400 Body height 182.88 cm Marvin Cooley DO Work Phone: [facility] 11-28-2024 09:56-0400 Body mass index (BMI) [Ratio] 30.1 kg/m2 Marvin Ball DO Work Phone: [facility] 11-28-2024 09:56-0400 Body weight 100.69 kg Marvin Ball DO Work Phone: [facility] 11-28-2024 09:56-0400 Diastolic blood pressure 85 mm[Hg] Marvin Ball DO Work Phone: [facility] 11-28-2024 09:56-0400 Heart rate 70 /min Marvin Ball DO Work Phone: [facility] 11-28-2024 09:56-0400 Respiratory rate 12 /min Marvin Ball DO Work Phone: [facility] 11-28-2024 09:56-0400 Systolic blood pressure 135 mm[Hg] Marvin Ball DO Work Phone: [facility] 05-28-2024 09:12-0500 Body height 182.88 cm Marvin Ball DO Work Phone: [facility] 05-28-2024 09:12-0500 Body mass index (BMI) [Ratio] 31.4 kg/m2 Marvin Ball DO Work Phone: [facility] 05-28-2024 09:12-0500 Body weight 105.23 kg Marvin Ball DO Work Phone: [facility] 05-28-2024 09:12-0500 Diastolic blood pressure 89 mm[Hg] Marvin Ball DO Work Phone: [facility] 05-28-2024 09:12-0500 Heart rate 62 /min Marvin Ball DO Work Phone: [facility] 05-28-2024 09:12-0500 Respiratory rate 12 /min Marvin Ball DO Work Phone: [facility] 05-28-2024 09:12-0500 Systolic blood pressure 139 mm[Hg] Marvin Ball DO Work Phone: [facility] 05-07-2024 10:15-0500 Body height 182.88 cm Marvin Ball DO Work Phone: [facility] 05-07-2024 10:15-0500 Body mass index (BMI) [Ratio] 31.1 kg/m2 Marvin Ball DO Work Phone: [facility] 05-07-2024 10:15-0500 Body weight 104.32 kg Marvin Ball DO Work Phone: [facility] 05-02-2024 11:29-0500 Body height 182.88 cm [facility] 05-02-2024 11:29-0500 Body mass index (BMI) [Ratio] 31.2 kg/m2 [facility] 05-02-2024 11:29-0500 Body weight 104.49 kg [facility] 05-02-2024 11:29-0500 Diastolic blood pressure 97 mm[Hg] [facility] 05-02-2024 11:29-0500 Heart rate 81 /min [facility] 05-02-2024 11:29-0500 Respiratory rate 12 /min [facility] 05-02-2024 11:29-0500 Systolic blood pressure 167 mm[Hg] [facility] 11-27-2023 09:21-0400 Body height 182.88 cm [facility] 11-27-2023 09:21-0400 Body mass index (BMI) [Ratio] 29.7 kg/m2 [facility] 11-27-2023 09:21-0400 Body weight 99.33 kg [facility] 11-27-2023 09:21-0400 Diastolic blood pressure 95 mm[Hg] [facility] 11-27-2023 09:21-0400 Heart rate 60 /min [facility] 11-27-2023 09:21-0400 Respiratory rate 12 /min [facility] 11-27-2023 09:21-0400 Systolic blood pressure 170 mm[Hg] [facility] 05-26-2023 08:30-0500 Body height 182.88 cm Marvin Ball Other [facility] Other 05-26-2023 08:30-0500 Body mass index (BMI) [Ratio] 31.05 kg/m2 Marvin Ball Other [facility] Other 05-26-2023 08:30-0500 Body weight 103.87 kg Marvin Ball Other [facility] Other 05-26-2023 08:30-0500 Diastolic blood pressure 81 mm[Hg] Marvin Ball Other [facility] Other 05-26-2023 08:30-0500 Respiratory rate 12 /min Marvin Ball Other [facility] Other 05-26-2023 08:30-0500 Systolic blood pressure 161 mm[Hg] Marvin Ball Other [facility] Other 05-31-2022 12:30-0500 Body height 182.88 cm Marvin Ball Other [facility] Other 05-31-2022 12:30-0500 Body mass index (BMI) [Ratio] 31.84 kg/m2 Marvin Ball Other [facility] Other 05-31-2022 12:30-0500 Body weight 106.51 kg Marvin Ball Other [facility] Other 05-31-2022 12:30-0500 Diastolic blood pressure 82 mm[Hg] Marvin Ball Other [facility] Other 05-31-2022 12:30-0500 Respiratory rate 12 /min Marvin Ball Other [facility] Other 05-31-2022 12:30-0500 Systolic blood pressure 126 mm[Hg] Marvin Ball Other [employer] Other Encounters Encounter Date Encounter Type Care Provider Facility Start: 11-28-2024 End: 11-28-2024 ambulatory Marvin Ball DO Work Phone: [facility] Work Phone: Start: 11-28-2024 End: 11-28-2024 Patient encounter procedure Marvin Ball DO -[facility] Work Phone: Start: 07-04-2024 End: 07-04-2024 ambulatory Marvin Ball DO Work Phone: [facility] Work Phone: Start: 07-04-2024 End: 07-04-2024 Patient encounter procedure Marvin Ball DO Work Phone: [facility] Physician [facility] Work Phone: Start: 05-30-2024 Non-patient / Non-visit Benjam in Ball DO Work Phone: [facility] Physician [facility] [employer] Work Phone: Start: 05-28-2024 End: 05-28-2024 ambulatory Marvin Ball DO Work Phone: [facility] Work Phone: Start: 05-28-2024 End: 05-28-2024 Patient encounter procedure Marvin Ball DO Work Phone: [facility] Physician [facility] Work Phone: Start: 05-09-2024 End: 05-09-2024 ambulatory Marvin Ball DO Work Phone: [facility] Work Phone: Start: 05-09-2024 End: 05-09-2024 Patient encounter procedure Marvin Ball DO Work Phone: [facility] Physician [facility] Work Phone: Start: 05-08-2024 End: 05-08-2024 Patient encounter procedure Marvin Ball DO Work Phone: [facility] [address] [facility] Work Phone: Start: 05-08-2024 End: 05-08-2024 ambulatory Marvin Ball DO Work Phone: [facility] Work Phone: Start: 05-07-2024 End: 05-07-2024 ambulatory Marvin Ball DO Work Phone: [facility] Work Phone: Start: 05-07-2024 End: 05-07-2024 Patient encounter procedure Marvin Ball DO Work Phone: [facility] Work Phone: Start: 05-02-2024 End: 05-02-2024 ambulatory [facility] Work Phone: Start: 05-02-2024 End: 05-02-2024 Patient encounter procedure [facility] Physician [facility] Work Phone: Start: 11-27-2023 End: 11-27-2023 ambulatory [facility] Work Phone: Start: 11-27-2023 End: 11-27-2023 Patient encounter procedure [facility] Physician [facility] Work Phone: Start: 05-26-2023 End: 05-26-2023 ambulatory Marvin Cooley Other [facility] Other Start: 05-26-2023 Office outpatient vi sit 25 minutes Marvin Cooley [facility] Start: 05-31-2022 End: 05-31-2022 ambulatory Marvin Cooley Other [facility] Other Start: 05-31-2022 Office outpatient vi sit 15 minutes Marvin Cooley [facility] Start: 03-16-2022 End: 03-17-[address] MARVIN COOLEY Facility: Start: 02-16-2022 End: 02-16-2022 ambulatory MARVIN COOLEY Facility:[facility] Start: 12-16-2021 Encounter for genera l adult medical examination without abnormal findings DR MARVIN COOLEY [facility] Start: 12-15-2021 End: 12-16-[address] MARVIN COOLEY Facility:[facility] Start: 12-15-2021 End: 12-16-2021 Encounter for general adult medical examination without abnormal findings DR MARVIN COOLEY Facility:[facility] Start: 11-12-2021 Adult health examination Sandoval Cooley Other [facility] Other Start: 08-06-2021 ambulatory Navjot coker MD Work Phone: Colorectal Surgery Comment on above: blood work Malignant neoplasm o f sigmoid colon (HCC) (Primary Dx) Start: 08-06-2021 E-mail encounter fro m caregiver Navjot Shultz MD Work Phone: 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 Ranjith Logan Start: 07-05-2018 Antibody screen Comment on above: Performed By: #### T SCR30 #### [place] [address] Start: 04-27-2018 Screening for malign ant neoplasm of colon Marvin Cooley Other Depression screening Cliff Cooley Other Plan of Treatment Date Care Activity Detail Author Start: 05-02-2024 Patient referral [facility] Work Phone: Start: 01-15-2022 End: 05-17-2022 Carcinoembryonic Ag [Mass/volume] in Serum or Plasma CEA BLD Lab Routine Malignant neoplasm of sigmoid colon (HCC) Expected: 01/15/2022, Expires: 05/17/2022 [facility] Work Phone: Comment on above: Expected: 01/15/2022 , Expires: 05/17/2022 Start: 12-16-2021 Influenza vaccination INFLUENZ A (Season Ended) [facility] Start: 07-23-2021 End: 09-22-2021 Carcinoembryonic Ag [Mass/volume] in Serum or Plasma CEA BLD Lab Routine Malignant neoplasm of sigmoid colon (HCC) Expected: 07/23/2021, Expires: 09/22/2021 [facility] Work Phone: Comment on above: Expected: 07/23/2021 , Expires: 09/22/2021 Start: 07-12-2021 DIABETES SCREEN DIABETES SCREEN [facility] Start: 04-17-2021 ADVANCE DIRECTIVE DISCUSSION ADVANCE [...] Hospital Start: [address] COLONOGRAPHY [facility] Start: 1999 FECAL OCCULT BLOOD FECAL OCCULT BLOO D [facility] Start: 1999 SIGMOIDOSCOPY SIGMOIDOSCOPY [facility] Start: 1989 LIPID SCREEN LIPID SCREEN [facility] Start: 1973 Urine microalbumin profile DTAP,TDAP ,TD (1 - Tdap) [facility] Start: 1972 HEPATITIS C SCREENING HEPATITIS C SC ARNELNING [facility] Start: 1966 Adult depression scr eening assessment DEPRESSION SCREENING [facility] Start: 1959 COVID-19 VACCINE (1) COVID-19 VACCIN E (1) [facility] Comprehensive metabo lic 1999 panel - Serum or Plasma [facility] Comprehensive metabo lic 1999 panel - Serum or Plasma [facility] Microalbumin [Mass/v olume] in Urine [facility] MR Elbow - right WO contrast [facility] Patient referral [facility] Work Phone: [facility] Immunizations Immunization Date Immunization Notes Care Provider Fa cility 01-31-2022 COVID-19 Pfizer (bivalent) Marvin Cooley Other [facility] 01-29-2021 COVID-19 Vaccine Pfi zer - Documentation Purposes Only Marvin Cooley Other [facility] 06-19-2020 COVID-19 Vaccine Pfi zer - Documentation Purposes Only Marvin Cooley Other [facility] 05-29-2020 COVID-19 Vaccine Pfi zer - Documentation Purposes Only Marvin Cooley Other [facility] Payers Date Payer Category Payer Medicare [id number] 2.1 [id number] 2024 Self-pay 2024 Unknown [id number] 2016 Private Health Insurance [id number] 1959 Unknown [id number] 1954 Unknown [id number] 1954 Unknown [id number] 1954 Unknown [id number] [id number] [id number] Private Health Insurance CLI [id number] Unknown [id number] [id number] Unknown [id number] [id number] [id number] Social History Date Type Detail Facility Start: 06-28-2018 End: 11-27-2023 Tobacco smoking status WIIS Never smoked tobacco [facility] Start: 06-28-2018 Tobacco use and exposure Smokeless tobacco non-user [facility] Start: 10-17-2019 Alcohol intake Current drinke r of alcohol (finding) [facility] Start: 10-17-2019 Alcohol intake [facility] Start: 06-14-2019 History SDOH Alcohol Frequency 3 [facility] Start: 06-14-2019 History SDOH Alcohol Std Drinks 2 [facility] Start: 06-14-2019 History SDOH Alcohol Binge 1 [facility] Start: 07-05-2018 History SDOH Alcohol Comment 4-5 beers a week [facility] Start: 1955 Sex Assigned At Not on file [facility] Start: 07-18-2021 End: 07-28-2021 Exposure to SARS-CoV-2 (event) Not sure [facility] Sex Assigned At Sex Assigned At Bir th [facility] Other Start: 1955 Sex Assigned At Male F [facility] Start: 05-02-2024 End: 07-04-2024 Sex Male (finding) [facility] Medical Equipment Procedure Code Equipment Code Equipment Origin al Text Equipment Identifier Dates Mesh Parietene D s [id number] - [id number] Start: 06-25-2019 Start: 12-08-2022 Clinical Notes 07-23-2021 to 05-02-2024 Note Date & Type Note Facility 05-02-2024 Evaluation note Diagnosis Onset Date Resolution Rupture of distal biceps tendon acute May 02 11:11am Right elbow pain noneactive May 02, 2024 11:11am Rupture of distal biceps tendon acute May 07 9:52am [facility] Work Phone: 1(572) 386-278801-16-2025 Evaluation note* Diagnosis Onset Date Resolution Status Admit Date Rupture of distal biceps tendon acute May 02 11:11am Right elbow pain noneactive May 02, 2024 11:11am Rupture of distal biceps tendon acute May 07 9:52am Rupture of distal biceps tendon acute May 09 10:11am [facility] Work Phone: 1(267) 723-267201-16-2025 Evaluation note* Diagnosis Onset Date Resolution Status [...] e May 28, 2024 9:02am Hypercholesterolemia acute 2024 9:02am Hypertension acute May 9:02am Rupture of distal biceps tendon acut e May 28, 2024 9:02am Type 2 diabetes mellitus wit h hyperglycemia acute May 28, 2 025 9:02am [facility] Work Phone: 1(851) 721-511901-16-2025 Evaluation note* Diagnosis Onset Date Resolution Status [...] symptoms acute May 28, 2 025 9:02am Family hx of aortic aneurysm acute May 28, 2024 9:02am H/O malignant neoplasm of colon acut e May 28, 2024 9:02am Hypercholesterolemia acute Febr uary 2024 9:02am Hypertension acute May, 2024 9:02am Rupture of distal biceps tendon acut e May 28, 2024 9:02am Type 2 diabetes mellitus wit h hyperglycemia acute May 28, 025 9:02am Rupture of distal biceps tendon acut e July 04, 2024 8:58am [facility] Work Phone: 1(428) 777-572102-09-2024 Evaluation note* Encounter Date Diagnosis Assessment Notes [...] [BMI ] 31.0-31.9, adult (ICD-10 - Z68.31) [facility] Other 02-14-2023 Evaluation note* Encounter Date Diagnosis [...] continue exercise to achieve/maintain a normal BMI. [facility] Other 04-08-2022 NoteHNO ID: [id number] Author: Janae Lezama RN Service: ? Author Type: Registered Nurse Type: Progress Notes Filed: 07/23/2021 3:47 PM Note Text: Call returned to patient. Discussed surveillance x 5 yrs. Pt appreciative of the call. Will obtain lab work. Will forward CT scans to Dr Shultz for approval.[facility]04-08-2022 History of Present illness Narrative* Janae Lezama [...] should wish to [facility] Malignant neoplasm of sigmoid colon (HCC)- Primary Malignant neoplasm of sigmoid colon Malignant neoplasm of rectosigmoid junction (HCC) Malignant neoplasm of rectosigmoid junction documented [facility] [facility] note* Diagnosis Malignant neoplasm of sigmoid colon (HCC)- Primary Malignant neoplasm of sigmoid colon documented in this encounter [facility] note* Diagnosis Onset Date Resolution Status Benign prostatic hyperplasia with lower urinary tract symptoms acute H/O malignant neoplasm of colon acute Hypercholesterolemia acute Type 2 diabetes mellitus with hyperglycemia acute Medicare annual wellness visit, initial noneactive Screening PSA (prostate specific antigen) noneactive [facility] Work Phone: Evaluation noteNo assessment information available [facility] Work Phone: Evaluation note* Diagnosis Onset Date Resolution Status Admit Date Family hx of aortic aneurysm acute November 28, 2024 9:28am H/O malignant neoplasm of colon acut e November 28, 2024 9:28am Hypercholesterolemia acute Augu st 2024 9:28am Hypertension acute November 28, 2024 9:28am Rupture of distal biceps tendon acut e November 28, 2024 9:28am Screening PSA (prostate spec ific antigen) acute November 28 9:28am Type 2 diabetes mellitus wit h hyperglycemia acute November 28 9:28am [facility] Work Phone: History general Narrative - Reported* Type Description Date Medical History Pure hypercholesterolemia Medical History Type 2 diabetes mellitus without complications Medical History Benign prostatic hyperplasia Medical History Overweight (BMI 25.0-29.9) Medical History Carcinoma of sigmoid colon Surgical History COLONOSCOPY 01/31/2020 Surgical History umbilical hernia repair 06/2019 Surgical History [facility] Hospitalization History see surgical history [facility] Other History general Narrative - Reported* Type Description Date Medical History Pure hypercholesterolemia Medical History Type 2 diabetes mellitus without complications Medical History Benign prostatic hyperplasia Medical History Overweight (BMI 25.0-29.9) Medical History Carcinoma of sigmoid colon Surgical History COLONOSCOPY, repeat 2024 Surgical History umbilical hernia repair 06/2019 Surgical History [facility] PARTIAL COLECTOMY Hospitalization History see surgical history [facility] Other Reason for referral (narrative)No reason for referral information available[facility] Work [facility]: Summary Purpose Family History No Family History Records FoundNo Family History Records FoundNo Family History Records FoundNo Family History Records Found Advance Directives Documents on File Type Date Recorded Patient Billing Clinician Expl anation Advance Directive(s) 06/25/2019 8:40 AM Advance Directive(s) 06/05/2019 3:23 PM Advance Directive(s) 07/10/2018 9:32 AM Advance Directive(s) 06/29/2018 11:21 AM Advance Directive Response Recorded Date/ Time Advance Directives No May 26, 2023 10:13am Advance Directive Response Recorded Date/ Time Advance Directives No May 26, 2023 9:13am Procedure Findings Note HNO ID: [id number] Author: Chelly Farris Service: ? Author Type: Nurse Staff Electronic Warfare Officer Type: Anesthesia Procedure Notes Filed: 06/25/2019 10:15 AM Note Text: ANESTHESIOLOGY PROCEDURE NOTE Airway General Information Procedure Start Time/Medication Administration: 06/25/2019 10:00 AM Patient location during procedure: OR Patient identity confirmed: arm band Staffing Anesthesiologist: Keon Fairchild MID LEVEL PROJECT MANAGER: Ana Farris Performed by: MID LEVEL PROJECT MANAGER Indications and Patient Condition Preoxygenated: yes Patient [...] (more content not included)... Note HNO ID: [id number] Author: Ismael Ace Service: General Surgery Author Type: Resident Type: Brief Op Note Filed: 06/25/2019 11:19 AM Note Text: BRIEF OPERATIVE / PROCEDURE NOTE LOG ID: [id number] SURGERY/PROCEDURE DATE: 06/25/2019 INCISION/PROCEDURE START TIME: 10:15 AM INCISION CLOSE/PROCEDURE END TIME: 11:13 AM SURGEON(S)/PROCEDURALIST(S) AND TECHNOLOGY APPLICATIONS CONSULTANT(S): Surgeon(s) and Role: * Kassidy Ibarra - [...] 25, 2019 TIME: 11:18 AM PAGER/CONTACT #: [id number] Note HNO ID: [id number] Author: Chelly Helton Service: Colorectal Author Type: Nurse Practitioner Type: Discharge Summary Filed: 07/12/2018 2:52 PM Note Text: Attestation signed by Navjot Shultz at 07/15/2018 7:27 PM Attending Note: Pierson findings confirmed. Patient examined. Discussed with the resident/RUSSIAN LANGUAGE PROFESSOR/PA and the patient. Plan as outlined. Navjot [...] not included)... Hospital Course Note HNO ID: [id number] Author: Chelly gonzalez (Myra) Danie Service: Colorectal Author Type: Nurse Practitioner Type: Discharge Summary Filed: 07/12/2018 2:52 PM Note Text: Attestation signed by Navjot Shultz at 07/15/2018 7:27 PM Attending Note: Pierson findings confirmed. Patient examined. Discussed with the resident/RUSSIAN LANGUAGE PROFESSOR/PA and the patient. Plan as outlined. Navjot [...] Pain in right elbow May 072024 9:53am S46.211A May 08, 2024 8 :49am Chief Complaint Admit Date right elbow pain May 02, 2024 1 1:11am CONSULT DR. COOLEY RT ELBOW PAIN, NX 2024 9:52am M25.521 - Pain in right elbow May 072024 9:53am S46.211A May 08, 2024 8 :49am MRI RESULTS [...] CONSULT DR. COOLEY RT ELBOW PAIN, NX Aprua ry 2024 9:52am M25.521 - Pain in right elbow May 072024 9:53am S46.211A May 08, 2024 8 :49am MRI RESULTS [...] with hyperglyce kendal May 28, 2024 9:02am Chief Complaint Admit Date right elbow pain May 02, 2024 1 1:11am CONSULT DR. COOLEY RT ELBOW PAIN, NX Aprua ry 2024 9:52am M25.521 - Pain in right elbow May 072024 9:53am S46.211A May 08, 2024 8 :49am MRI RESULTS May 09, 2024 1 0:11am 6 month f/u May 28, 2024 9:02am 8 weeks July 04, 2024 8:5 8am Reason for Visit Admit Date Rupture of distal biceps tendon May 02, 2024 11:11am Right elbow pain May 02, 2024 1 1:11am Rupture of distal biceps tendon May 07, 2024 9:52am Rupture of distal biceps tendon May 09, 2024 10:11am Benign prostatic hyperplasia with lower urinary tract symptoms May 28, 2024 9:02am Family hx of aortic aneurysm May 282024 9:02am H/O malignant neoplasm of colon May 28, 2024 9:02am Hypercholesterolemia May 28, 2024 9:02am Hypertension May 28, 2024 9:02am Rupture of distal biceps tendon May 28, 2024 9:02am Type 2 diabetes mellitus with hyperglyce kendal May 28, 2024 9:02am Rupture of distal biceps tendon July 042024 8:58am Chief Complaint Admit Date Wellness November 28, 2024 9: 28am Reason for Visit Admit Date Family hx of aortic aneurysm November 9:28am H/O malignant neoplasm of colon November 152024 9:28am Hypercholesterolemia November 28, 2024 9 :28am Hypertension November 28, 2024 9: 28am Rupture of distal biceps tendon November 152024 9:28am Screening PSA (prostate specific antigen ) November 28, 2024 9:28am Type 2 diabetes mellitus with hyperglyce kendal November 28, 2024 9:28am Additional Source Comments (unrecognized sect ion and content) No Status Records FoundNo Status Records FoundNo Status Records FoundNo Status Records Found INFORMATION SOURCE (unrecogn ized section and content) DATE CREATED AUTHOR 06/27/2019 [facility] DATE CREATED AUTHOR AUTHOR'S ORGANIZ ATION 02/18/2022 [facility] DATE CREATED AUTHOR AUTHOR'S ORGANIZ ATION 03/19/2022 [facility] DATE CREATED AUTHOR AUTHOR'S ORGANIZ ATION 05/10/2024 [facility] Source Comments (unrecognize d [...] (unrecogniz ed section and content) 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 Care Teams (unrecognized sec tion and content) Maintenance Worker House Trailer Relationship Specialty Start Date End Date Marvin Cooley, DO [address] [place] [address] PCP - General Internal Medicine 06/27/18 Maintenance Worker House Trailer Relationship Specialty Start Date End Date Marvin Cooley, DO [address] [facility] [place] [address] PCP - General Internal Medicine 06/27/18 Maintenance Worker House Trailer Relationship Specialty Start Date End Date Marvin Cooley, DO [address] [facility] [place] [address] PCP - General Internal Medicine 06/27/18 Maintenance Worker House Trailer Relationship Specialty Start Date End Date Marvin Cooley, DO [address] [facility] [place] [address] PCP - General Internal Medicine 06/27/18 Team Status: Active Member Role Status Meme Cooley DO Primary Care Provider Active Team Status: Inactive Member Role Status Meme Cooley DO Primary Care Provide r, Attending Provider Active Start: November 27, 2023 End: November 27, 2023 Team Status: Inactive Member Role Status Meme Cooley DO Primary Care Provide r, Attending Provider Active Start: May 02, 2024 End: May 02, 2024 Team Status: Inactive Member Role Status Dates Marvin Cooley DO Primary Care Provider Active Start: May 07, 2024 End: May 07, 2024 Geronimo Loaiza DO Attending Provider Active St art: May 07, 2024 End: May 07, 2024 Team Status: Active Member Role Status Meme Cooley DO Primary Care Provider Active Start: May 07, 2024 Geronimo Loaiza DO Attending Provider Active St art: May 07, 2024 Team Status: Inactive Member Role Status Dates Marvin Cooley DO Primary Care Provider Active Start: May 08, 2024 End: May 08, 2024 Geronimo Loaiza DO Attending Provider Active St art: May 08, 2024 End: May 08, 2024 Team Status: Inactive Member Role Status Dates Marvin Cooley DO Primary Care Provider Active Start: May 09, 2024 End: May 09, 2024 Geronimo Loaiza DO Attending Provider Active St art: May 09, 2024 End: May 09, 2024 Team Status: Inactive Member Role Status Meme Cooley DO Primary Care Provide r, Attending Provider Active Start: May 28, 2024 End: May 28, 2024 Team Status: Active Member Role Status Dates Marvin Cooley DO Primary Care Provide r, Attending Provider Active Start: May 30, 2024 Team Status: Inactive Member Role Status Dates Marvin Cooley DO Primary Care Provider Active Start: July 04, 2024 End: July 04, 2024 Geronimo Loaiza , DO Attending Provider Active St art: July 04, 2024 End: July 04, 2024 Team Status: Inactive Member Role Status Dates Marvin Cooley DO Primary Care Provider Active Start: November 28, 2024 End: November 28, 2024 Marvin Cooley DO Attending Provider Active Sta rt: November 28, 2024 End: November 28, 2024 Goals (unrecognized section and content) [...] BE BASED ON THE PRIMARY CLINICAL RECORDS. [facility] [employer] [facility]. provides no warranty or guarantee of the accuracy or completeness of information in this document.
[2024-12-09 07:26] LABS: Hematocrit 42.1 % (42.0-54.0); Hemoglobin 14.7 g/dL (14.0-18.0); Immature Granulocytes Abs Auto 0.02 10^3/uL (0.00-0.03); Immature Granulocytes Pct Auto 0.3 % (0.0-0.5); Lymphocytes Absolute Auto 2.8 10^3/uL (1.2-3.8); Mean Corpuscular HGB Conc 34.9 g/dL (29.9-35.2); Mean Corpuscular Hemoglobin 31.1 pg (25.9-34.0); Mean Corpuscular Volume 89.2 fL (80.0-94.0); Platelet Count 252 10^3/uL (150-450); Red Blood Count 4.72 10^6/uL (4.70-6.10); White Blood Count 7.9 10^3/uL (4.0-11.0)
[2024-12-09 07:48] LABS: Microalbum Creatinine Ratio Ur 6.2 mg/g (0.0-29.9)
[2024-12-09 07:49] LABS: Alanine Aminotransferase 30 U/L (16-63); Albumin Globulin Ratio 1.0; Albumin Level 3.7 g/dL (3.4-5.0); Alkaline Phosphatase 57 U/L (46-116); Anion Gap 13.4; Aspartate Amino Transferase 15 U/L (15-37); Blood Urea Nitrogen 14.0 mg/dL (7.0-18.0); Calcium 8.8 mg/dL (8.5-10.1); Carbon Dioxide 28.4 mmol/L (21.0-32.0); Chloride 105 mmol/L (98-107); Cholesterol 218 mg/dL (<=200); Estimated GFR (African America >60 (>=60 mL/min/1.73m^2); Estimated GFR (Non-African Ame >60 (>=60 mL/min/1.73m^2); Globulin 3.7 g/dL; Glucose 139 mg/dL (74-106); HDL Cholesterol 64 mg/dL (40-60); Potassium 3.8 mmol/L (3.5-5.1); Sodium 143 mmol/L (136-145); Total Protein 7.4 g/dL (6.4-8.2); Triglycerides 107 mg/dL (<=150); VLDL CHOLESTEROL 21.4 mg/dL
== END 2024-12-09 06:53 | disposition home or self-care (01) ==
LOC: LAB 06:53
PROVIDERS: PCP Internal Medicine; Visit Provider Internal Medicine
DX: E78.00 Pure hypercholesterolemia, unspecified (principal); I10 Essential (primary) hypertension; E11.65 Type 2 diabetes mellitus with hyperglycemia; Z12.5 Encounter for screening for malignant neoplasm of prostate
CPT/HCPCS: 36415; 80053; 80061; 82043; 82570; 83036; 85025; G0103